=== PATIENT | male | born 1975 | race Caucasian/White ===

== ENCOUNTER 2020-02-22 01:55 | Inpatient (IN) | payer MEDICAID, SELFPAY ==
[2020-02-22 03:39] VITALS: BMI 22.3
[2020-02-22] MEDS ORDERED: Dextrose 5% in Water 1,000 ML IV PRN (03:56)
[2020-02-22] MEDS ORDERED: Dextrose 50% Abboject 50 ML SYRINGE SLOW IVP PRN (03:56)
--- NOTE | 2020-02-22 04:30 | PDOC.BPN ---
- Brief Progress Note [id number] dictated
[2020-02-22] MEDS: Morphine 4 MG/ML VIAL SLOW IVP PRN ×4 (04:36→21:35)
[2020-02-22] MEDS: Ondansetron PF 4 MG/2 ML Vial IVP PRN ×2 (04:36→09:40)
[2020-02-22] MEDS: Sodium Chloride 0.9% 1,000 ML IV SCH ×2 (04:37→14:53)
[2020-02-22] MEDS: HumaLOG 300 UNITS/3 ML VIAL SC PRN ×2 (06:02→15:04)
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
[2020-02-22] MEDS ORDERED: Vancomycin HCl 1 GM in Sodium Chloride 0.9% 250 ML 300 ML IVPB SCH (09:00)
[2020-02-22] MEDS: Lorazepam 2 MG/ML VIAL SLOW IVP PRN ×2 (09:05→21:35)
[2020-02-22] MEDS: Vancomycin 1 GM in Premix Bag 1 BAG IVPB SCH ×2 (09:11→17:34)
[2020-02-22] MEDS: Insulin Glargine 20 UNITS in Pre-Filled Syringe 1 EACH SC SCH (11:36)
[2020-02-22] MEDS: Cefepime 2 GM in Sodium Chloride 0.9% 100 ML IVPB SCH (12:15)
[2020-02-22] MEDS: Gabapentin 300 MG CAP PO SCH ×2 (12:17→17:41)
--- NOTE | 2020-02-22 17:11 | PDOC.HOSPP ---
- Subjective Encounter Date: 02/22/20 Encounter Time: 12:30 Subjective: Patient up in bed no complaints. - Objective Vital Signs & Weight: Vital Signs (12 hours) Temp Pulse Resp BP Pulse Ox 02/22/20 15:40 101.6 F H 123 H 16 170/90 H 95 02/22/20 11:22 99.6 F 113 H 16 160/92 H 96 02/22/20 07:33 99 F 123 H 18 156/79 H 99 Weight Weight 160 lb I&O: 02/21/20 02/22/20 02/23/20 06:59 06:59 06:59 Output Total 250 Balance -250 Additional Labs: Accuchecks 02/22/20 02/22/20 02/22/20 14:56 10:49 05:55 POC Glucose 333 H 223 H 308 H Hospitalist ROS - Review of Systems Cardiovascular: denies: chest pain, palpitations, orthopnea, paroxysmal noc. dyspnea, edema, light headedness, other Gastrointestinal: denies: nausea, vomiting, abdominal pain, diarrhea, constipation, melena, hematochezia, other Genitourinary: denies: dysuria, frequency, incontinence, hematuria, retention, other - Medication Medications: Active Medications Generic Name Dose Route Start Last Admin Trade Name Freq PRN Reason Stop Dose Admin Gabapentin 300 mg 02/22/20 12:00 02/22/20 12:17 Gabapentin 300 Mg Cap PO 300 mg Q6HR LILLI Administration Sodium Chloride 1,000 mls @ 100 mls/hr 02/22/20 04:00 02/22/20 14:53 Normal Saline 0.9% IV Not Given .Q10H LILLI Cefepime HCl 2 gm/ Sodium 100 mls @ 200 mls/hr 02/22/20 13:00 02/22/20 12:15 Chloride IVPB 100 mls 0100,1300 LILLI Administration Insulin Glargine 20 units/ 0.2 mls @ 0 mls/hr 02/22/20 09:00 02/22/20 11:36 Miscellaneous Medication SC Not Given QAM LILLI Vancomycin HCl 1 gm/ Device 200 mls @ 200 mls/hr 02/22/20 10:00 02/22/20 09:11 IVPB 200 mls 0200,1000,1800 LILLI Administration Insulin Human Lispro 0 units 02/22/20 03:56 02/22/20 15:04 Humalog 300 Units/3 Ml Vial SC 8 unit .MODERATE SLIDING SC PRN Administration Moderate Correctional Scale Lorazepam 0.5 mg 02/22/20 04:30 02/22/20 09:05 Lorazepam 2 Mg/Ml Vial SLOW IVP 0.5 mg Q4H PRN Administration Anxiety/Agitation Morphine Sulfate 4 mg 02/22/20 04:03 02/22/20 14:43 Morphine 4 Mg/Ml Vial SLOW IVP 4 mg Q4H PRN Administration Severe Pain (7-10) Ondansetron HCl 4 mg 02/22/20 03:56 02/22/20 09:40 Ondansetron Pf 4 Mg/2 Ml Vial IVP 4 mg Q6H PRN Administration Nausea/Vomiting - Exam Neck: negative: supple, symmetric, no JVD, no thyromegaly, no lymphadenopathy, no carotid bruit, JVD Heart: negative: RRR, no murmur, no gallops, no rubs, normal peripheral pulses, irregular, diminshed peripheral pulses, murmur present, II/IV, III/IV Respiratory: negative: CTAB, no wheezes, no rales, no ronchi, normal chest expansion, no tachypnea, normal percussion, rales, rhonchi, tachypneic, wheezes Gastrointestinal: negative: soft, non-tender, non-distended, normal bowel sounds, no palpable masses, no hepatomegaly, no splenomegaly, no bruit, no guarding, no rigidity, tender to palpation, distended, diminished bowl sounds, voluntary guarding Extremities - other findings: Right knee significant amount of swelling noted. Hosp A/P (1) Septic joint Status: Acute (2) Diabetes Code(s): E11.9 - TYPE 2 DIABETES MELLITUS WITHOUT COMPLICATIONS Status: Acute (3) Substance abuse Code(s): F19.10 - OTHER PSYCHOACTIVE SUBSTANCE ABUSE, UNCOMPLICATED Status: Acute - Plan We will continue IV antibiotics. We will add short acting Humalog with meals. Patient most likely will go for washout tomorrow. Patient on DVT prophylaxis.
[2020-02-22] MEDS ORDERED: HumaLOG 300 UNITS/3 ML VIAL SC SCH (17:15)
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
[2020-02-23] MEDS: Gabapentin 300 MG CAP PO SCH ×5 (00:52→23:35)
[2020-02-23] MEDS: Sodium Chloride 0.9% 1,000 ML IV SCH ×3 (00:53→23:00)
[2020-02-23] MEDS: Vancomycin 1 GM in Premix Bag 1 BAG IVPB SCH (00:54)
[2020-02-23] MEDS: Cefepime 2 GM in Sodium Chloride 0.9% 100 ML IVPB SCH ×2 (00:57→13:39)
[2020-02-23] MEDS: Morphine 4 MG/ML VIAL SLOW IVP PRN ×4 (01:03→20:56)
[2020-02-23] MEDS: Lorazepam 2 MG/ML VIAL SLOW IVP PRN ×3 (01:04→20:57)
[2020-02-23 01:24] LABS: SARS-CoV-2 by NAA Indeterminate (NotDetected)
[2020-02-23 01:29] LABS: Vancomycin, Trough 10.7 ug/mL
[2020-02-23] MEDS ORDERED: Vancomycin HCl 500 MG in Sodium Chloride 0.9% 100 ML IVPB SCH (02:00)
[2020-02-23] MEDS: HumaLOG 300 UNITS/3 ML VIAL SC PRN ×2 (05:18→20:57)
[2020-02-23 05:42] LABS: #Lymphocytes 1.7 thou/uL (1.20-3.40); #Monocytes 1.1 thou/uL (0.11-0.59); #Neutrophils 6.9 thou/uL (1.40-6.50); %Basophils 0.3 % (0.0-1.0); %Eosinophils 0.3 % (0.0-10.0); %Lymphocytes 16.9 % (21.0-51.0); %Monocytes 11.4 % (0.0-10.0); %Neutrophils 71.1 % (42.0-75.0); Mean Corpuscular HGB CONC 31.8 g/dL (32.0-36.0); Mean Corpuscular Hemoglobin 29.1 pg (27.0-31.0); Mean Corpuscular Volume 91.5 fL (78.0-98.0); Mean Platelet Volume 6.7 fL (7.4-10.4); Platelet Count 550 thou/uL (130-400); White Blood Cell (WBC) Count 9.8 thou/uL (4.8-10.8)
[2020-02-23 06:05] LABS: ALT (SGPT) 45 U/L (8-55); AST (SGOT) 17 U/L (5-34); Albumin 2.4 g/dL (3.5-5.0); Alkaline Phosphatase 153 U/L (40-110); Anion Gap 15 mmol/L (10-20); BUN (Urea Nitrogen) 13 mg/dL (8.9-20.6); Bilirubin, Total 0.4 mg/dL (0.2-1.2); Calc. Creatinine Clearance 121 mL/min (70-130); Calcium 7.7 mg/dL (7.8-10.44); Carbon Dioxide 27 mmol/L (22-29); Chloride 94 mmol/L (98-107); Globulin 3.3 g/dL (2.4-3.5); Glucose 490 mg/dL (70-105); Potassium 4.7 mmol/L (3.5-5.1); Protein, Total 5.7 g/dL (6.0-8.3); Sodium 131 mmol/L (136-145)
[2020-02-23] MEDS ORDERED: HumaLOG 300 UNITS/3 ML VIAL SC SCH (08:00)
[2020-02-23] MEDS: Insulin Glargine 20 UNITS in Pre-Filled Syringe 1 EACH SC SCH (09:02)
[2020-02-23] MEDS: Lisinopril 20 MG TAB PO SCH (09:02)
[2020-02-23] MEDS: Enoxaparin Sodium 40 MG/0.4 ML SYRINGE SC SCH (09:09)
[2020-02-23] MEDS ORDERED: Ondansetron PF 4 MG/2 ML Vial ONE (09:56)
[2020-02-23] MEDS ORDERED: Dexamethasone 20 MG/5 ML VIAL ONE (09:56)
[2020-02-23] MEDS ORDERED: Lidocaine 1% PF 5 ML VIAL ONE (09:56)
[2020-02-23] MEDS ORDERED: PROPOFOL 200 MG/20 ML VIAL ONE (09:56)
[2020-02-23] MEDS: Vancomycin 1.5 GRAM/300 ML BAG 1.5 GM in Premix Bag 1 BAG IVPB SCH ×2 (10:41→18:37)
[2020-02-23] MEDS ORDERED: Fentanyl 100 MCG/2 ML VIAL ONE ×6 (11:59→15:07)
[2020-02-23] MEDS ORDERED: Midazolam HCl 2 mg/2 ml Vial ONE (12:28)
[2020-02-23] MEDS ORDERED: Insulin Regular 300 UNITS/3 ML VIAL ONE (12:49)
[2020-02-23] MEDS ORDERED: Promethazine HCl 25 MG/ML VIAL SLOW IVP PRN (13:26)
[2020-02-23] MEDS ORDERED: Ondansetron HCl/PF 4 MG/2 ML Vial IVP PRN (13:26)
[2020-02-23] MEDS ORDERED: Promethazine HCl 25 MG/ML VIAL IM PRN (13:26)
[2020-02-23] MEDS: HumaLOG 300 UNITS/3 ML VIAL SC SCH ×2 (13:38→16:54)
--- NOTE | 2020-02-23 14:43 | OP ---
DATE OF PROCEDURE: 02/23/2020 OPERATION PERFORMED: Irrigation and debridement of right knee infection. PREOPERATIVE DIAGNOSIS: Right septic knee with abscess formation. POSTOPERATIVE DIAGNOSIS: Right septic knee with abscess formation. COMPLICATIONS: None. ESTIMATED BLOOD LOSS: Minimal. DRAY TRUCK [employer]IVER: None. IMPLANTS: None. INDICATIONS: Mr. Vazquez is a 44-year-old male who has developed a septic knee. He has a large abscess over the lateral knee as well as an intra-articular infection. He has been indicated for irrigation and debridement of the knee to restore mobility and prevent complications of infection. Risks have been reviewed in detail. He has elected to proceed with the operation. DESCRIPTION OF PROCEDURE: Mr. Vazquez was identified in the preoperative holding area. His correct extremity was marked. He was carried to the operating room. He was positioned supine. General anesthesia was induced. A multidisciplinary time-out was performed. The right lower extremity was prepped and draped in sterile fashion. We began the procedure with performing an arthrotomy of the knee. We then dissected down through the subcutaneous tissues to the retinaculum. The medial retinacular tissues were incised. This allowed us access to the knee joint. There was copious amount of purulent material. We cultured this. We evacuated the purulent material. We then thoroughly irrigated with 5 L of lavage in the joint. We debrided with a curette and a rongeur. Next, we moved to the lateral knee. We made a lateral incision and encountered a large subcutaneous abscess. This was debrided with a curette and then thoroughly irrigated with 3 L of lavage. Again, we cultured this fluid. Next, we loosely closed the lateral wound and packed this wound with iodoform gauze. We then closed the knee arthrotomy and superficial layers after placing a deep Hemovac drain in the knee. A sterile dressing was applied. The patient was taken to the recovery room in good condition without complication. Job ID: [id number]
--- NOTE | 2020-02-23 15:19 | PDOC.HOSPP ---
- Subjective Encounter Date: 02/23/20 Encounter Time: 09:15 Subjective: pt up in bed no complaints. - Objective Vital Signs & Weight: Vital Signs (12 hours) Temp Pulse Resp BP Pulse Ox 02/23/20 10:29 132/76 02/23/20 07:34 98.2 F 108 H 14 148/91 H 96 02/23/20 04:38 99.7 F H 114 H 16 154/91 H 95 Weight Weight 160 lb I&O: 02/22/20 02/23/20 02/24/20 06:59 06:59 06:59 Output Total 250 2925 Balance -250 -2925 Result Diagrams: 02/23/20 05:13 02/23/20 05:13 Additional Labs: Accuchecks 02/23/20 02/23/20 02/23/20 14:55 12:28 05:12 POC Glucose 291 H 268 H 413 H 02/22/20 22:35 POC Glucose 328 H Hospitalist ROS - Review of Systems Cardiovascular: denies: chest pain, palpitations, orthopnea, paroxysmal noc. dyspnea, edema, light headedness, other Gastrointestinal: denies: nausea, vomiting, abdominal pain, diarrhea, constipation, melena, hematochezia, other Genitourinary: denies: dysuria, frequency, incontinence, hematuria, retention, other - Medication Medications: Active Medications Generic Name Dose Route Start Last Admin Trade Name Freq PRN Reason Stop Dose Admin Enoxaparin Sodium 40 mg 02/23/20 09:00 02/23/20 09:09 Enoxaparin Sodium 40 Mg/0.4 Ml Syringe SC Not Given 0900 [facility] Gabapentin 300 mg 02/22/20 12:00 02/23/20 13:38 Gabapentin 300 Mg Cap PO Not Given Q6HR LILLI Sodium Chloride 1,000 mls @ 100 mls/hr 02/22/20 04:00 02/23/20 00:53 Normal Saline 0.9% IV 1,000 mls .Q10H LILLI Administration Cefepime HCl 2 gm/ Sodium 100 mls @ 200 mls/hr 02/22/20 13:00 02/23/20 13:39 Chloride IVPB Not Given 0100,1300 [facility] Insulin Glargine 20 units/ 0.2 mls @ 0 mls/hr 02/22/20 09:00 02/23/20 09:02 Miscellaneous Medication SC Not Given QAM LILLI Vancomycin HCl 1.5 gm/ Device 300 mls @ 200 mls/hr 02/23/20 10:00 02/23/20 10:41 IVPB 300 mls 0200,1000,1800 LILLI Administration Insulin Human Lispro 0 units 02/22/20 03:56 02/23/20 05:18 Humalog 300 Units/3 Ml Vial SC 10 unit .MODERATE SLIDING SC PRN Administration Moderate Correctional Scale Insulin Human Lispro 10 units 02/23/20 12:00 02/23/20 13:38 Humalog 300 Units/3 Ml Vial SC Not Given TID-WM LILLI Lisinopril 20 mg 02/23/20 09:00 02/23/20 09:02 Lisinopril 20 Mg Tab PO 20 mg DAILY LILLI Administration Lorazepam 0.5 mg 02/22/20 04:30 02/23/20 01:04 Lorazepam 2 Mg/Ml Vial SLOW IVP 0.5 mg Q4H PRN Administration Anxiety/Agitation Morphine Sulfate 4 mg 02/22/20 04:03 02/23/20 05:17 Morphine 4 Mg/Ml Vial SLOW IVP 4 mg Q4H PRN Administration Severe Pain (7-10) Ondansetron HCl 4 mg 02/22/20 03:56 02/22/20 09:40 Ondansetron Pf 4 Mg/2 Ml Vial IVP 4 mg Q6H PRN Administration Nausea/Vomiting Sodium Chloride 10 ml 02/22/20 21:00 02/23/20 09:09 Flush - Normal Saline 10 Ml Syringe IVF Not Given Q12HR LILLI - Exam Neck: negative: supple, symmetric, no JVD, no thyromegaly, no lymphadenopathy, no carotid bruit, JVD Heart: negative: RRR, no murmur, no gallops, no rubs, normal peripheral pulses, irregular, diminshed peripheral pulses, murmur present, II/IV, III/IV Respiratory: negative: CTAB, no wheezes, no rales, no ronchi, normal chest expansion, no tachypnea, normal percussion, rales, rhonchi, tachypneic, wheezes Gastrointestinal: negative: soft, non-tender, non-distended, normal bowel sounds, no palpable masses, no hepatomegaly, no splenomegaly, no bruit, no guarding, no rigidity, tender to palpation, distended, diminished bowl sounds, voluntary guarding Extremities - other findings: right knee erythema Hosp A/P (1) Septic joint Status: Acute (2) Diabetes Code(s): E11.9 - TYPE 2 DIABETES MELLITUS WITHOUT COMPLICATIONS Status: Acute (3) Substance abuse Code(s): F19.10 - OTHER PSYCHOACTIVE SUBSTANCE ABUSE, UNCOMPLICATED Status: Acute (4) Anemia Code(s): D64.9 - ANEMIA, UNSPECIFIED Status: Acute - Plan We will continue IV antibiotics. We will add short acting Humalog with meals. Patient most likely will go for washout tomorrow. Patient on DVT prophylaxis. 02/22 pt npo going for washout. pt spiked a fever last night. will consult ID since he may need mcc abx. will increase his insulin given his uncontrolled blood sugars.
--- NOTE | 2020-02-23 17:38 | CON ---
DATE OF CONSULTATION: 02/23/2020 REASON FOR CONSULTATION: Right knee septic arthritis. HISTORY OF PRESENT ILLNESS: A 44-year-old who just moved from [place] to this area to be with family members. The history is kind of sketchy, but right before he came here, he had developed pain and swelling in the right knee and went to a hospital in [place], reportedly the [facility] there. It is not clear what they did there. The patient is not willing to give a lot of information, but he checked out against medical advice and drove over to [place] to this area. He came straight to the emergency room, and obviously, he had an inflamed right knee. His initial findings included a blood pressure of 150/90, pulse 108, respirations 20, temperature 98.3, and O2 saturation 98% on room air. He did not appear in distress. The right knee was [id number] erythematous with evidence of joint effusion. So, Dr. Gutiérrez did an operative intervention. He did arthrotomy in the right knee, dissected down to the subcutaneous tissues to retinaculum and there was a knee joint access then with copies amount of purulent material, which was evacuated and irrigated and then the lateral knee was approached with a lateral incision and a large subcutaneous abscess found. He is currently having quite a bit of pain intermittently. Denies any headaches. No visual symptoms, sore throat, odynophagia, or dysphagia. No shortness of breath or chest pain. No abdominal pain or diarrhea. No genitourinary symptoms. No joint symptoms outside the area of involvement. No neurological symptoms. PAST MEDICAL HISTORY: Type 1 diabetes, hypertension, coronary artery disease. PAST SURGICAL HISTORY: Bypass graft surgery. He actually told me he had a stent placed, not a bypass graft. SOCIAL HISTORY: Uses methamphetamine, last use was just a few days ago. Smokes daily. Drinks occasionally. Unemployed. FAMILY HISTORY: Noncontributory. ALLERGIES: SULFA DRUGS. CURRENT MEDICATIONS: 1. Cefepime. 2. Neurontin. 3. Insulin. 4. Lisinopril. 5. Ativan. 6. Ondansetron. 7. Vancomycin. PHYSICAL EXAMINATION: VITAL SIGNS: T-max 101.6, is down to 98.2 at this point; blood pressure 130/76; O2 saturation 96% on room air. SKIN: He has extensive tattooing over his body of skin. The right knee dressed. He has a peripheral IV access. LYMPHS: No lymphadenopathy. HEENT: Ocular movements conjugate. Oral cavity with still a few teeth in the lower mandible with evident decay. The upper dental structures are missing. No oral lesion noted. NECK: Supple. No jugular vein distention. MUSCULOSKELETAL: No shoulder inflammatory activity. No sternoclavicular joint problems. LUNGS: Clear to auscultation and percussion. HEART: S1, S2. Regular rate. No S3 or S4. ABDOMEN: Soft. Not distended or tender. No ascites. No bladder distention. EXTREMITIES: 1+ in dorsalis pedis. No edema. He was having pain during the exam, so it was very hard to mobilize his extremities. NEUROLOGIC: He is awake, oriented, follows commands, is not very willing to provide a history. LABORATORY DATA: His white cell count 9.8, hemoglobin 9.0, MCV 91, platelets 550, 71% neutrophils. Creatinine 0.79, bilirubin 0.4. Transaminase is normal. Alkaline phosphatase 153, albumin 2.4. Vancomycin trough 10.7. SARS-CoV PCR was indeterminate. IMAGING STUDIES: Included a knee x-ray, large joint effusion and possible fracture medial tibial epiphysis. I attempted to call [facility] in [place], but they did not have anybody with his name in the database there. ASSESSMENT: 1. Methamphetamine use. 2. Type 1 diabetes mellitus. 3. Right knee septic arthritis for the past 4 to 5 days. DISCUSSION: The differential diagnosis includes the usual pyogenic bacteria such as Staphylococcus aureus, streptococci, and gram-negative rods versus opportunistic pathogens. Continue cefepime, vancomycin. Await on culture results. I see 2 or 4 samples from the knee pending results at this time. His COVID test was indeterminate, and we will order SARS-CoV-2 antibody test and order a chest x-ray as well. Regarding possibility of endocarditis, we will see what the blood cultures show. We need to obtain records from the other hospital to see if he had bacteremia. If he did have or does have bacteremia, then we will have to evaluate the heart. He will need protracted treatment with antimicrobial therapy hopefully via the oral route, but unfortunately most likely he will require intravenous administration. Depending on the organism, we may be able to treat him with once weekly dalbavancin. If the blood cultures turn positive, then we will have to assess for endocarditis and that will complicate things a little bit. Check HIV and hepatitis C serology. Job ID: [id number]
[2020-02-23 18:01] LABS: HIV (1/2) Antibody/Antigen Non-Reactive (NonReactive); HIV 1/2 INDEX 0.06 S/CO (<1.00)
[2020-02-23 18:04] LABS: Hep C IgG Ab Reflex HepC Qnt (NonReactive); Hep C Index 13.46 S/CO (0-0.79)
[2020-02-23] MEDS: Ondansetron PF 4 MG/2 ML Vial IVP PRN (21:02)
[2020-02-23] MEDS: Insulin Glargine 15 UNITS in Pre-Filled Syringe 1 EACH SC SCH (23:35)
[2020-02-24] MEDS: Cefepime 2 GM in Sodium Chloride 0.9% 100 ML IVPB SCH ×2 (00:09→15:01)
[2020-02-24 01:45] LABS: Vancomycin, Trough 20.1 ug/mL
[2020-02-24] MEDS: Vancomycin HCl 1.25 GM in Sodium Chloride 0.9% 250 ML 250 ML IVPB SCH ×3 (02:10→17:50)
[2020-02-24] MEDS: Gabapentin 300 MG CAP PO SCH ×4 (06:09→23:26)
[2020-02-24] MEDS: HumaLOG 300 UNITS/3 ML VIAL SC PRN (06:10)
[2020-02-24] MEDS: Insulin Glargine 20 UNITS in Pre-Filled Syringe 1 EACH SC SCH (06:54)
[2020-02-24] MEDS: HumaLOG 300 UNITS/3 ML VIAL SC SCH ×3 (06:55→17:49)
[2020-02-24] MEDS: Sodium Chloride 0.9% 1,000 ML IV SCH ×2 (07:29→17:50)
[2020-02-24 08:07] LABS: Glucose 565 mg/dL (70-105)
[2020-02-24] MEDS ORDERED: Insulin Regular 300 UNITS/3 ML VIAL IVP SCH ×3 (08:45→11:45)
[2020-02-24] MEDS ORDERED: Sodium Chloride 0.9% 500 ML IV SCH ×2 (09:00→11:45)
[2020-02-24] MEDS ORDERED: Insulin Regular 300 UNITS/3 ML VIAL SC SCH ×2 (09:15→16:15)
[2020-02-24] MEDS: Lisinopril 20 MG TAB PO SCH (09:17)
[2020-02-24] MEDS: Enoxaparin Sodium 40 MG/0.4 ML SYRINGE SC SCH (09:19)
[2020-02-24] MEDS: Nicotine 14 MG PATCH TD SCH (10:45)
[2020-02-24] MEDS: Morphine 4 MG/ML VIAL SLOW IVP PRN ×2 (10:49→17:49)
[2020-02-24] MEDS: Lorazepam 2 MG/ML VIAL SLOW IVP PRN ×2 (11:03→20:46)
[2020-02-24 11:17] LABS: Anion Gap 19 mmol/L (10-20); BUN (Urea Nitrogen) 19 mg/dL (8.9-20.6); Calc. Creatinine Clearance 93 mL/min (70-130); Carbon Dioxide 21 mmol/L (22-29); Chloride 97 mmol/L (98-107); Potassium 3.9 mmol/L (3.5-5.1); Sodium 133 mmol/L (136-145)
[2020-02-24 11:21] LABS: Glucose 574 mg/dL (70-105)
[2020-02-24 12:02] LABS: Glucose 681 mg/dL (70-105)
[2020-02-24] MEDS ORDERED: Morphine 4 MG/ML VIAL ONE (12:36)
[2020-02-24] MEDS ORDERED: Morphine 4 MG/ML VIAL SLOW IVP SCH (12:45)
[2020-02-24 14:13] LABS: Glucose 438 mg/dL (70-105)
--- NOTE | 2020-02-24 16:08 | PDOC.HOSPP ---
- Subjective Encounter Date: 02/24/20 Encounter Time: 09:45 Subjective: Patient's blood sugar out of control. He does complain of pain to his right knee - Objective Vital Signs & Weight: Vital Signs (12 hours) Temp Pulse Resp BP BP Pulse Ox 02/24/20 11:51 98.5 F 112 H 16 162/94 H 100 02/24/20 09:17 145/85 H 02/24/20 09:15 98 02/24/20 07:57 98.6 F 111 H 16 145/85 H 98 Weight Weight 160 lb I&O: 02/23/20 02/24/20 02/25/20 06:59 06:59 06:59 Intake Total 2340 Output Total 2925 2150 Balance -2925 190 Result Diagrams: 02/23/20 05:13 02/24/20 13:40 Additional Labs: Accuchecks 02/24/20 02/24/20 02/23/20 06:36 05:31 20:53 POC Glucose Greater than 500 H Greater than 500 H 448 H Hospitalist ROS - Review of Systems Respiratory: denies: cough, dry, shortness of breath, hemoptysis, SOB with excertion, pleuritic pain, sputum, wheezing, other Cardiovascular: denies: chest pain, palpitations, orthopnea, paroxysmal noc. dyspnea, edema, light headedness, other Gastrointestinal: denies: nausea, vomiting, abdominal pain, diarrhea, constipation, melena, hematochezia, other - Medication Medications: Active Medications Generic Name Dose Route Start Last Admin Trade Name Freq PRN Reason Stop Dose Admin Enoxaparin Sodium 40 mg 02/23/20 09:00 02/24/20 09:19 Enoxaparin Sodium 40 Mg/0.4 Ml Syringe SC 40 mg 0900 LILLI Administration Gabapentin 300 mg 02/22/20 12:00 02/24/20 12:17 Gabapentin 300 Mg Cap PO 300 mg Q6HR LILLI Administration Sodium Chloride 1,000 mls @ 100 mls/hr 02/22/20 04:00 02/24/20 07:29 Normal Saline 0.9% IV Not Given .Q10H LILLI Cefepime HCl 2 gm/ Sodium 100 mls @ 200 mls/hr 02/22/20 13:00 02/24/20 15:01 Chloride IVPB 100 mls 0100,1300 LILLI Administration Insulin Glargine 20 units/ 0.2 mls @ 0 mls/hr 02/22/20 09:00 02/24/20 06:54 Miscellaneous Medication SC 0.2 mls QAM LILLI Administration Insulin Glargine 15 units/ 0.15 mls @ 0 mls/hr 02/23/20 21:00 02/23/20 23:35 Miscellaneous Medication SC Not Given HS LILLI Vancomycin HCl 1.25 gm/ Sodium 250 mls @ 166.667 mls/hr 02/24/20 02:00 02/24/20 10:45 Chloride IVPB 250 mls 0200,1000,1800 LILLI Administration Insulin Human Lispro 0 units 02/22/20 03:56 02/24/20 06:10 Humalog 300 Units/3 Ml Vial SC 10 unit .MODERATE SLIDING SC PRN Administration Moderate Correctional Scale Insulin Human Lispro 15 units 02/24/20 12:00 02/24/20 12:14 Humalog 300 Units/3 Ml Vial SC 15 unit TID-WM LILLI Administration Lisinopril 20 mg 02/23/20 09:00 02/24/20 09:17 Lisinopril 20 Mg Tab PO 20 mg DAILY LILLI Administration Lorazepam 0.5 mg 02/22/20 04:30 02/24/20 11:03 Lorazepam 2 Mg/Ml Vial SLOW IVP 0.5 mg Q4H PRN Administration Anxiety/Agitation Nicotine 14 mg 02/24/20 10:00 02/24/20 10:45 Nicotine 14 Mg Patch TD 14 mg Q24HR LILLI Administration Ondansetron HCl 4 mg 02/22/20 03:56 02/23/20 21:02 Ondansetron Pf 4 Mg/2 Ml Vial IVP 4 mg Q6H PRN Administration Nausea/Vomiting Sodium Chloride 10 ml 02/22/20 21:00 02/24/20 09:18 Flush - Normal Saline 10 Ml Syringe IVF 10 ml Q12HR LILLI Administration - Exam Neck: negative: supple, symmetric, no JVD, no thyromegaly, no lymphadenopathy, no carotid bruit, JVD Heart: negative: RRR, no murmur, no gallops, no rubs, normal peripheral pulses, irregular, diminshed peripheral pulses, murmur present, II/IV, III/IV Respiratory: negative: CTAB, no wheezes, no rales, no ronchi, normal chest expansion, no tachypnea, normal percussion, rales, rhonchi, tachypneic, wheezes Gastrointestinal: negative: soft, non-tender, non-distended, normal bowel sounds, no palpable masses, no hepatomegaly, no splenomegaly, no bruit, no guarding, no rigidity, tender to palpation, distended, diminished bowl sounds, voluntary guarding Extremities: 1+ LE edema Extremities - other findings: Mild erythema noted to his right knee. Hosp A/P (1) Septic joint Status: Acute (2) Diabetes Code(s): E11.9 - TYPE 2 DIABETES MELLITUS WITHOUT COMPLICATIONS Status: Acute (3) Substance abuse Code(s): F19.10 - OTHER PSYCHOACTIVE SUBSTANCE ABUSE, UNCOMPLICATED Status: Acute (4) Anemia Code(s): D64.9 - ANEMIA, UNSPECIFIED Status: Acute - Plan We will continue IV antibiotics. We will add short acting Humalog with meals. Patient most likely will go for washout tomorrow. Patient on DVT prophylaxis. 02/22 pt npo going for washout. pt spiked a fever last night. 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 will increase his insulin given his uncontrolled blood sugars. 02/23 status post washout of the right knee. We will continue antibiotics. Dr. Wilson consulted. Patient given multiple doses of IV short acting insulin. Apparently his diet was regular we will change his diet to diabetic diet. We wi ll check a hemoglobin A1c in the a.m. Patient's sugars were over 600. He does not have an anion gap metabolic acidosis therefore no DKA. He is a high risk for going into DKA. If his sugars do not improve he will require insulin drip. Patient was received 2 normal saline boluses. We will increase his pain medications.
[2020-02-24] MEDS: Famotidine 20 MG TAB PO SCH (20:45)
[2020-02-24] MEDS: Ketorolac Tromethamine 30 MG/ML VIAL IVP PRN (20:45)
[2020-02-24] MEDS: Insulin Glargine 15 UNITS in Pre-Filled Syringe 1 EACH SC SCH (23:40)
[2020-02-25] MEDS: Cefepime 2 GM in Sodium Chloride 0.9% 100 ML IVPB SCH ×2 (00:46→12:52)
[2020-02-25] MEDS: Sodium Chloride 0.9% 1,000 ML IV SCH ×3 (01:42→22:31)
[2020-02-25 01:48] LABS: #Eosinphils 0.1 thou/uL (0.0-0.7); #Monocytes 0.6 thou/uL (0.11-0.59); #Neutrophils 7.9 thou/uL (1.40-6.50); %Basophils 0.4 % (0.0-1.0); %Eosinophils 0.6 % (0.0-10.0); %Lymphocytes 19.2 % (21.0-51.0); %Neutrophils 73.8 % (42.0-75.0); Hemoglobin 8.2 g/dL (14.0-18.0); Mean Corpuscular Hemoglobin 28.7 pg (27.0-31.0); Mean Corpuscular Volume 89.5 fL (78.0-98.0); Mean Platelet Volume 6.3 fL (7.4-10.4); Platelet Count 606 thou/uL (130-400); RBC Distribution Width 14.1 % (11.5-14.5); Red Blood Cell (RBC) Count 2.85 mill/uL (4.70-6.10); White Blood Cell (WBC) Count 10.6 thou/uL (4.8-10.8)
[2020-02-25 02:20] LABS: Vancomycin, Trough 19.1 ug/mL
[2020-02-25 02:21] LABS: ALT (SGPT) 30 U/L (8-55); AST (SGOT) 19 U/L (5-34); Albumin 2.3 g/dL (3.5-5.0); Alkaline Phosphatase 115 U/L (40-110); Anion Gap 11 mmol/L (10-20); BUN (Urea Nitrogen) 14 mg/dL (8.9-20.6); Bilirubin, Total 0.2 mg/dL (0.2-1.2); Calc. Creatinine Clearance 105 mL/min (70-130); Calcium 7.6 mg/dL (7.8-10.44); Carbon Dioxide 29 mmol/L (22-29); Chloride 101 mmol/L (98-107); Glucose 255 mg/dL (70-105); Potassium 4.1 mmol/L (3.5-5.1); Protein, Total 5.3 g/dL (6.0-8.3); Sodium 137 mmol/L (136-145)
[2020-02-25] MEDS: Vancomycin HCl 1.25 GM in Sodium Chloride 0.9% 250 ML 250 ML IVPB SCH ×3 (02:49→18:38)
[2020-02-25 03:03] LABS: Hemoglobin A1c 11.5 % (4.0-6.0)
[2020-02-25] MEDS: Morphine 4 MG/ML VIAL SLOW IVP PRN ×4 (03:33→23:02)
[2020-02-25] MEDS: HumaLOG 300 UNITS/3 ML VIAL SC PRN ×2 (03:37→23:17)
[2020-02-25] MEDS: Gabapentin 300 MG CAP PO SCH ×4 (05:31→23:03)
[2020-02-25] MEDS: Enoxaparin Sodium 40 MG/0.4 ML SYRINGE SC SCH (08:30)
[2020-02-25] MEDS: Famotidine 20 MG TAB PO SCH ×2 (08:30→21:33)
[2020-02-25] MEDS: Lisinopril 20 MG TAB PO SCH (08:30)
[2020-02-25] MEDS: HumaLOG 300 UNITS/3 ML VIAL SC SCH ×3 (08:31→17:39)
[2020-02-25] MEDS: Insulin Glargine 20 UNITS in Pre-Filled Syringe 1 EACH SC SCH (08:39)
[2020-02-25] MEDS: Nicotine 14 MG PATCH TD SCH (10:44)
[2020-02-25] MEDS: Lorazepam 2 MG/ML VIAL SLOW IVP PRN ×2 (10:56→23:18)
--- NOTE | 2020-02-25 13:32 | PDOC.HOSPP ---
- Subjective Encounter Date: 02/25/20 Encounter Time: 10:30 Subjective: pt up in bed no complains - Objective Vital Signs & Weight: Vital Signs (12 hours) Temp Pulse Resp BP BP Pulse Ox 02/25/20 11:04 99.8 F H 106 H 20 151/86 H 96 02/25/20 08:30 159/89 H 02/25/20 08:02 98.6 F 106 H 18 159/89 H 96 02/25/20 03:24 98.9 F 102 H 16 147/81 H 97 Weight Weight 160 lb I&O: 02/24/20 02/25/20 02/26/20 06:59 06:59 06:59 Intake Total 4185 Output Total 3375 Balance 810 Result Diagrams: 02/25/20 01:39 02/25/20 01:39 Additional Labs: Accuchecks 02/25/20 02/25/20 02/24/20 13:09 03:28 22:26 POC Glucose 318 H 360 H 87 02/24/20 02/24/20 02/24/20 20:42 16:02 10:46 POC Glucose 79 366 H Greater than 500 H Hospitalist ROS - Review of Systems Cardiovascular: denies: chest pain, palpitations, orthopnea, paroxysmal noc. dyspnea, edema, light headedness, other Gastrointestinal: denies: nausea, vomiting, abdominal pain, diarrhea, consti pation, melena, hematochezia, other Genitourinary: denies: dysuria, frequency, incontinence, hematuria, retention, other - Medication Medications: Active Medications Generic Name Dose Route Start Last Admin Trade Name Rashelq PRN Reason Stop Dose Admin Enoxaparin Sodium 40 mg 02/23/20 09:00 02/25/20 08:30 Enoxaparin Sodium 40 Mg/0.4 Ml Syringe SC 40 mg 0900 LILLI Administration Famotidine 20 mg 02/24/20 21:00 02/25/20 08:30 Famotidine 20 Mg Tab PO 20 mg BID LILLI Administration Gabapentin 300 mg 02/22/20 12:00 02/25/20 12:51 Gabapentin 300 Mg Cap PO 300 mg Q6HR LILLI Administration Sodium Chloride 1,000 mls @ 100 mls/hr 02/22/20 04:00 02/25/20 01:42 Normal Saline 0.9% IV Not Given .Q10H LILLI Cefepime HCl 2 gm/ Sodium 100 mls @ 200 mls/hr 02/22/20 13:00 02/25/20 12:52 Chloride IVPB 100 mls 0100,1300 LILLI Administration Insulin Glargine 20 units/ 0.2 mls @ 0 mls/hr 02/22/20 09:00 02/25/20 08:39 Miscellaneous Medication SC 0.2 mls QAM LILLI Administration Insulin Glargine 15 units/ 0.15 mls @ 0 mls/hr 02/23/20 21:00 02/24/20 23:40 Miscellaneous Medication SC Not Given HS LILLI Vancomycin HCl 1.25 gm/ Sodium 250 mls @ 166.667 mls/hr 02/24/20 02:00 02/25/20 10:44 Chloride IVPB 250 mls 0200,1000,1800 LILLI Administration Insulin Human Lispro 0 units 02/22/20 03:56 02/25/20 03:37 Humalog 300 Units/3 Ml Vial SC 10 unit .MODERATE SLIDING SC PRN Administration Moderate Correctional Scale Insulin Human Lispro 15 units 02/24/20 12:00 02/25/20 12:51 Humalog 300 Units/3 Ml Vial SC 15 unit TID-WM LILLI Administration Ketorolac Tromethamine 15 mg 02/24/20 20:26 02/24/20 20:45 Ketorolac Tromethamine 30 Mg/Ml Vial IVP 02/29/20 20:27 15 mg Q6H PRN Administration Pain Lisinopril 20 mg 02/23/20 09:00 02/25/20 08:30 Lisinopril 20 Mg Tab PO 20 mg DAILY LILLI Administration Lorazepam 0.5 mg 02/22/20 04:30 02/25/20 10:56 Lorazepam 2 Mg/Ml Vial SLOW IVP 0.5 mg Q4H PRN Administration Anxiety/Agitation Morphine Sulfate 6 mg 02/24/20 12:34 02/25/20 08:25 Morphine 4 Mg/Ml Vial SLOW IVP 6 mg Q4H PRN Administration Severe Pain (7-10) Nicotine 14 mg 02/24/20 10:00 02/25/20 10:44 Nicotine 14 Mg Patch TD 14 mg Q24HR LILLI Administration Ondansetron HCl 4 mg 02/22/20 03:56 02/23/20 21:02 Ondansetron Pf 4 Mg/2 Ml Vial IVP 4 mg Q6H PRN Administration Nausea/Vomiting Sodium Chloride 10 ml 02/22/20 21:00 02/25/20 10:45 Flush - Normal Saline 10 Ml Syringe IVF Not Given Q12HR LILLI - Exam Neck: negative: supple, symmetric, no JVD, no thyromegaly, no lymphadenopathy, no carotid bruit, JVD Heart: negative: RRR, no murmur, no gallops, no rubs, normal peripheral pulses, irregular, diminshed peripheral pulses, murmur present, II/IV, III/IV Respiratory: negative: CTAB, no wheezes, no rales, no ronchi, normal chest expansion, no tachypnea, normal percussion, rales, rhonchi, tachypneic, wheezes Gastrointestinal: negative: soft, non-tender, non-distended, normal bowel sounds, no palpable masses, no hepatomegaly, no splenomegaly, no bruit, no guarding, no rigidity, tender to palpation, distended, diminished bowl sounds, voluntary guarding Extremities: 1+ LE edema Extremities - other findings: right knee dressing intact Hosp A/P (1) Septic joint Status: Acute (2) Diabetes Code(s): E11.9 - TYPE 2 DIABETES MELLITUS WITHOUT COMPLICATIONS Status: Acute (3) Substance abuse Code(s): F19.10 - OTHER PSYCHOACTIVE SUBSTANCE ABUSE, UNCOMPLICATED Status: Acute (4) Anemia Code(s): D64.9 - ANEMIA, UNSPECIFIED Status: Acute - Plan We will continue IV antibiotics. We will add short acting Humalog with meals. Patient most likely will go for washout tomorrow. Patient on DVT prophylaxis. 02/22 pt npo going for washout. pt spiked a fever last night. 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 will increase his insulin given his uncontrolled blood sugars. 02/23 status post washout of the right knee. We will continue antibiotics. Dr. Wilson consulted. Patient given multiple doses of IV short acting insulin. Apparently his diet was regular we will change his diet to diabetic diet. We will check a hemoglobin A1c in the a.m. Patient's sugars were over 600. He does not have an anion gap metabolic acidosis therefore no DKA. He is a high risk for going into DKA. If his sugars do not improve he will require insulin drip. Patient was received 2 normal saline boluses. We will increase his pain medications. 02/24 pt's blood sugars are still elevated. will titrate pt's insulin. will continue abx for now. PT ordered. pt on dvt ppx.
[2020-02-25] MEDS: Insulin Glargine 15 UNITS in Pre-Filled Syringe 1 EACH SC SCH (21:33)
[2020-02-25] MEDS: Ketorolac Tromethamine 30 MG/ML VIAL IVP PRN (22:31)
[2020-02-25] MEDS: Ondansetron PF 4 MG/2 ML Vial IVP PRN (23:10)
[2020-02-26] MEDS: Vancomycin HCl 1.25 GM in Sodium Chloride 0.9% 250 ML 250 ML IVPB SCH ×2 (01:11→09:29)
[2020-02-26] MEDS: Cefepime 2 GM in Sodium Chloride 0.9% 100 ML IVPB SCH (01:11)
[2020-02-26 01:38] LABS: Vancomycin, Trough 19.2 ug/mL
[2020-02-26] MEDS: Gabapentin 300 MG CAP PO SCH ×4 (05:02→23:43)
[2020-02-26] MEDS: Morphine 4 MG/ML VIAL SLOW IVP PRN (05:03)
[2020-02-26] MEDS: Lorazepam 2 MG/ML VIAL SLOW IVP PRN (05:09)
[2020-02-26] MEDS: Insulin Glargine 20 UNITS in Pre-Filled Syringe 1 EACH SC SCH (09:29)
[2020-02-26] MEDS: Enoxaparin Sodium 40 MG/0.4 ML SYRINGE SC SCH (09:29)
[2020-02-26] MEDS: Lisinopril 20 MG TAB PO SCH (09:29)
[2020-02-26] MEDS: Famotidine 20 MG TAB PO SCH ×2 (09:29→19:38)
[2020-02-26] MEDS: HumaLOG 300 UNITS/3 ML VIAL SC SCH ×3 (09:30→17:24)
[2020-02-26] MEDS: Ketorolac Tromethamine 30 MG/ML VIAL IVP PRN (09:31)
[2020-02-26] MEDS: Nicotine 14 MG PATCH TD SCH (09:36)
[2020-02-26 10:38] LABS: HCV I.Units 44600000 IU/mL (.); HCV I.Units log10 7.649 (.); Hep C PCR-Quant See Final Results IU/mL (.)
[2020-02-26] MEDS: HYDROcodone/Acetaminophen 7.5/325 mg Tablet PO PRN ×2 (12:39→19:38)
[2020-02-26] MEDS: cefTRIAXone\\ROCEPHIN 2 GM in Sodium Chloride 0.9% 100 ML IVPB SCH (12:45)
--- NOTE | 2020-02-26 16:36 | PDOC.HOSPP ---
- Subjective Encounter Date: 02/26/20 Encounter Time: 10:30 Subjective: Patient up in bed denies any complaints. - Objective Vital Signs & Weight: Vital Signs (12 hours) Temp Pulse Resp BP BP Pulse Ox 02/26/20 15:45 100.1 F H 106 H 16 152/82 H 95 02/26/20 12:00 98.9 F 104 H 16 136/80 95 02/26/20 09:29 159/89 H 02/26/20 07:55 98.6 F 102 H 16 144/81 H 99 02/26/20 04:42 99.0 F 99 21 H 146/86 H 96 Weight Admit Weight 160 lb Weight 160 lb I&O: 02/25/20 02/26/20 02/27/20 06:59 06:59 06:59 Intake Total 4185 1900 Output Total 3375 1625 Balance 810 275 Result Diagrams: 02/25/20 01:39 02/25/20 01:39 Additional Labs: Accuchecks 02/26/20 02/26/20 02/26/20 15:05 11:44 04:54 POC Glucose 65 L 114 H 117 H 02/25/20 02/25/20 02/25/20 23:13 19:41 15:31 POC Glucose 303 H 233 H 215 H Hospitalist ROS - Review of Systems Cardiovascular: denies: chest pain, palpitations, orthopnea, paroxysmal noc. d yspnea, edema, light headedness, other Gastrointestinal: denies: nausea, vomiting, abdominal pain, diarrhea, constipation, melena, hematochezia, other Genitourinary: denies: dysuria, frequency, incontinence, hematuria, retention, other - Medication Medications: Active Medications Generic Name Dose Route Start Last Admin Trade Name Freq PRN Reason Stop Dose Admin Hydrocodone Bitart/Acetaminophen 1 tab 02/26/20 09:44 02/26/20 12:39 Hydrocodone/Acetaminophen 7.5/325 Mg Tablet PO 1 tab Q6H PRN Administration Mild Pain (1-3) Enoxaparin Sodium 40 mg 02/23/20 09:00 02/26/20 09:29 Enoxaparin Sodium 40 Mg/0.4 Ml Syringe SC 40 mg 0900 LILLI Administration Famotidine 20 mg 02/24/20 21:00 02/26/20 09:29 Famotidine 20 Mg Tab PO 20 mg BID LILLI Administration Gabapentin 300 mg 02/22/20 12:00 02/26/20 12:38 Gabapentin 300 Mg Cap PO 300 mg Q6HR LILLI Administration Insulin Glargine 20 units/ 0.2 mls @ 0 mls/hr 02/22/20 09:00 02/26/20 09:29 Miscellaneous Medication SC 0.2 mls QAM LILLI Administration Insulin Glargine 15 units/ 0.15 mls @ 0 mls/hr 02/23/20 21:00 02/25/20 21:33 Miscellaneous Medication SC 0.15 mls HS LILLI Administration Ceftriaxone Sodium 2 gm/ 100 mls @ 200 mls/hr 02/26/20 12:00 02/26/20 12:45 Sodium Chloride IVPB 100 mls 1200 LILLI Administration Insulin Human Lispro 0 units 02/22/20 03:56 02/25/20 23:17 Humalog 300 Units/3 Ml Vial SC 8 unit .MODERATE SLIDING SC PRN Administration Moderate Correctional Scale Insulin Human Lispro 15 units 02/24/20 12:00 02/26/20 12:39 Humalog 300 Units/3 Ml Vial SC 15 unit TID-WM LILLI Administration Ketorolac Tromethamine 15 mg 02/24/20 20:26 02/26/20 09:31 Ketorolac Tromethamine 30 Mg/Ml Vial IVP 02/29/20 20:27 15 mg Q6H PRN Administration Pain Lisinopril 20 mg 02/23/20 09:00 02/26/20 09:29 Lisinopril 20 Mg Tab PO 20 mg DAILY LILLI Administration Nicotine 14 mg 02/24/20 10:00 02/26/20 09:36 Nicotine 14 Mg Patch TD 14 mg Q24HR LILLI Administration Ondansetron HCl 4 mg 02/22/20 03:56 02/25/20 23:10 Ondansetron Pf 4 Mg/2 Ml Vial IVP 4 mg Q6H PRN Administration Nausea/Vomiting Sodium Chloride 10 ml 02/22/20 21:00 02/26/20 09:30 Flush - Normal Saline 10 Ml Syringe IVF Not Given Q12HR LILLI - Exam Neck: negative: supple, symmetric, no JVD, no thyromegaly, no lymphadenopathy, no carotid bruit, JVD Heart: negative: RRR, no murmur, no gallops, no rubs, normal peripheral pulses, irregular, diminshed peripheral pulses, murmur present, II/IV, III/IV Respiratory: negative: CTAB, no wheezes, no rales, no ronchi, normal chest expansion, no tachypnea, normal percussion, rales, rhonchi, tachypneic, wheezes Gastrointestinal: negative: soft, non-tender, non-distended, normal bowel sounds, no palpable masses, no hepatomegaly, no splenomegaly, no bruit, no guarding, no rigidity, tender to palpation, distended, diminished bowl sounds, voluntary guarding Hosp A/P (1) Septic joint Status: Acute (2) Diabetes Code(s): E11.9 - TYPE 2 DIABETES MELLITUS WITHOUT COMPLICATIONS Status: Acute (3) Substance abuse Code(s): F19.10 - OTHER PSYCHOACTIVE SUBSTANCE ABUSE, UNCOMPLICATED Status: Acute (4) Anemia Code(s): D64.9 - ANEMIA, UNSPECIFIED Status: Acute - Plan We will continue IV antibiotics. We will add short acting Humalog with meals. Patient most likely will go for washout tomorrow. Patient on DVT prophylaxis. 02/22 pt npo going for washout. pt spiked a fever last night. 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 will increase his insulin given his uncontrolled blood sugars. 02/23 status post washout of the right knee. We will continue antibiotics. Dr. Wilson consulted. Patient given multiple doses of IV short acting insulin. Apparently his diet was regular we will change his diet to diabetic diet. We will check a hemoglobin A1c in the a.m. Patient's sugars were over 600. He do es not have an anion gap metabolic acidosis therefore no DKA. He is a high risk for going into DKA. If his sugars do not improve he will require insulin drip. Patient was received 2 normal saline boluses. We will increase his pain medications. 02/24 pt's blood sugars are still elevated. will titrate pt's insulin. will continue abx for now. PT ordered. pt on dvt ppx. 02/25 spoke with infectious disease patient can get Rocephin IM or IV daily. However given his history of IV drug use most likely will be IM. May discharge once okay with orthopedic. Patient's sugars are still very labile. Patient's IV Ativan changed to p.o. and IV morphine changed to oral pain meds. Patient on DVT prophylaxis.
[2020-02-26] MEDS: Sodium Chloride 0.9% 1,000 ML IV SCH (18:38)
[2020-02-26] MEDS: Lorazepam 1 MG TAB PO PRN (19:38)
[2020-02-26] MEDS: Insulin Glargine 15 UNITS in Pre-Filled Syringe 1 EACH SC SCH (20:31)
[2020-02-27] MEDS: HumaLOG 300 UNITS/3 ML VIAL SC PRN (03:47)
[2020-02-27] MEDS: HYDROcodone/Acetaminophen 7.5/325 mg Tablet PO PRN ×3 (04:09→18:32)
[2020-02-27] MEDS: Lorazepam 1 MG TAB PO PRN ×3 (04:10→18:32)
[2020-02-27] MEDS: Gabapentin 300 MG CAP PO SCH ×3 (05:29→17:06)
[2020-02-27] MEDS: Lisinopril 20 MG TAB PO SCH (08:23)
[2020-02-27] MEDS: Famotidine 20 MG TAB PO SCH ×2 (08:23→19:54)
[2020-02-27] MEDS: Enoxaparin Sodium 40 MG/0.4 ML SYRINGE SC SCH (08:24)
[2020-02-27] MEDS: HumaLOG 300 UNITS/3 ML VIAL SC SCH ×3 (08:24→17:08)
[2020-02-27] MEDS: Ketorolac Tromethamine 30 MG/ML VIAL IVP PRN ×2 (08:25→17:06)
[2020-02-27] MEDS: Nicotine 14 MG PATCH TD SCH (08:44)
[2020-02-27] MEDS: Insulin Glargine 20 UNITS in Pre-Filled Syringe 1 EACH SC SCH (08:44)
[2020-02-27] MEDS: cefTRIAXone\\ROCEPHIN 2 GM in Sodium Chloride 0.9% 100 ML IVPB SCH (11:33)
--- NOTE | 2020-02-27 11:57 | PDOC.HOSPP ---
- Subjective Encounter Date: 02/27/20 Encounter Time: 11:54 Subjective: Mr. Vazquez was seen today in follow-up of septic knee joint. He does not have any complaints. - Objective Vital Signs & Weight: Vital Signs (12 hours) Temp Pulse Resp BP BP Pulse Ox 02/27/20 11:37 98.8 F 101 H 12 139/84 99 02/27/20 08:59 98.9 F 98 14 144/90 H 100 02/27/20 08:24 100 02/27/20 08:23 144/90 H 02/27/20 04:17 97.3 F L 102 H 19 142/83 H 98 Weight Admit Weight 160 lb Weight 160 lb I&O: 02/26/20 02/27/20 02/28/20 06:59 06:59 06:59 Intake Total 1900 1160 240 Output Total 1625 1250 Balance 275 -90 240 Result Diagrams: 02/25/20 01:39 02/25/20 01:39 Additional Labs: Accuchecks 02/27/20 02/27/20 02/26/20 07:37 03:39 23:41 POC Glucose 368 H 241 H 232 H 02/26/20 02/26/20 20:01 15:05 POC Glucose 300 H 65 L Hospitalist ROS - Medication Medications: Active Medications Generic Name Dose Route Start Last Admin Trade Name Freq PRN Reason Stop Dose Admin Hydrocodone Bitart/Acetaminophen 1 tab 02/26/20 09:44 02/27/20 11:32 Hydrocodone/Acetaminophen 7.5/325 Mg Tablet PO 1 tab Q6H PRN Administration Mild Pain (1-3) Enoxaparin Sodium 40 mg 02/23/20 09:00 02/27/20 08:24 Enoxaparin Sodium 40 Mg/0.4 Ml Syringe SC 40 mg 0900 LILLI Administration Famotidine 20 mg 02/24/20 21:00 02/27/20 08:23 Famotidine 20 Mg Tab PO 20 mg BID LILLI Administration Gabapentin 300 mg 02/22/20 12:00 02/27/20 11:31 Gabapentin 300 Mg Cap PO 300 mg Q6HR LILLI Administration Insulin Glargine 20 units/ 0.2 mls @ 0 mls/hr 02/22/20 09:00 02/27/20 08:44 Miscellaneous Medication SC 0.2 mls QAM LILLI Administration Insulin Glargine 15 units/ 0.15 mls @ 0 mls/hr 02/23/20 21:00 02/26/20 20:31 Miscellaneous Medication SC 0.15 mls HS LILLI Administration Ceftriaxone Sodium 2 gm/ 100 mls @ 200 mls/hr 02/26/20 12:00 02/27/20 11:33 Sodium Chloride IVPB 100 mls 1200 LILLI Administration Insulin Human Lispro 0 units 02/22/20 03:56 02/27/20 03:47 Humalog 300 Units/3 Ml Vial SC 4 unit .MODERATE SLIDING SC PRN Administration Moderate Correctional Scale Insulin Human Lispro 15 units 02/24/20 12:00 02/27/20 08:24 Humalog 300 Units/3 Ml Vial SC 15 unit TID-WM LILLI Administration Ketorolac Tromethamine 15 mg 02/24/20 20:26 02/26/20 09:31 Ketorolac Tromethamine 30 Mg/Ml Vial IVP 02/29/20 20:27 15 mg Q6H PRN Administration Pain Lisinopril 20 mg 02/23/20 09:00 02/27/20 08:23 Lisinopril 20 Mg Tab PO 20 mg DAILY LILLI Administration Lorazepam 0.5 mg 02/26/20 09:48 02/27/20 11:33 Lorazepam 1 Mg Tab PO 0.5 mg Q6H PRN Administration Anxiety Nicotine 14 mg 02/24/20 10:00 02/27/20 08:44 Nicotine 14 Mg Patch TD 14 mg Q24HR LILLI Administration Ondansetron HCl 4 mg 02/22/20 03:56 02/25/20 23:10 Ondansetron Pf 4 Mg/2 Ml Vial IVP 4 mg Q6H PRN Administration Nausea/Vomiting Sodium Chloride 10 ml 02/22/20 21:00 02/27/20 08:25 Flush - Normal Saline 10 Ml Syringe IVF 10 ml Q12HR LILLI Administration - Exam Eye: PERRL, anicteric sclera Heart: RRR, no murmur, no gallops, no rubs, normal peripheral pulses Respiratory: CTAB, no wheezes, no rales, no ronchi, normal chest expansion, no tachypnea, normal percussion Gastrointestinal: soft, non-tender, non-distended, normal bowel sounds, no palpable masses, no hepatomegaly Extremities: no cyanosis, no edema Hosp A/P (1) Diabetes mellitus, insulin dependent (IDDM), controlled Code(s): [id number] - Status: Acute (2) Septic joint Status: Acute (3) Substance abuse Code(s): F19.10 - OTHER PSYCHOACTIVE SUBSTANCE ABUSE, UNCOMPLICATED Status: Acute - Plan * Septic knee joint- continue Rocephin. He has been cleared to receive Rocephin IM as well. * Will need to see if his insurance will cover this, and he will also need outpatient follow-up * Will discuss with Case Management * Hopefully home soon.
[2020-02-27] MEDS ORDERED: Docusate 100 MG CAP PO SCH (15:15)
[2020-02-27] MEDS ORDERED: Zolpidem Tartrate 5 MG TAB PO PRN (17:27)
[2020-02-27] MEDS ORDERED: Nicotine 14 MG PATCH TD PRN (18:13)
[2020-02-27] MEDS: Docusate 100 MG CAP PO SCH (19:54)
[2020-02-27] MEDS: Insulin Glargine 15 UNITS in Pre-Filled Syringe 1 EACH SC SCH (19:55)
[2020-02-28 02:21] LABS: Vancomycin, Trough 2.3 ug/mL
[2020-02-28] MEDS: Gabapentin 300 MG CAP PO SCH ×4 (03:27→17:15)
[2020-02-28] MEDS: HYDROcodone/Acetaminophen 7.5/325 mg Tablet PO PRN ×2 (03:44→09:28)
[2020-02-28] MEDS: Lorazepam 1 MG TAB PO PRN ×3 (03:45→21:16)
[2020-02-28] MEDS: HumaLOG 300 UNITS/3 ML VIAL SC PRN (05:12)
[2020-02-28] MEDS: Ketorolac Tromethamine 30 MG/ML VIAL IVP PRN ×2 (07:31→20:49)
[2020-02-28] MEDS: Enoxaparin Sodium 40 MG/0.4 ML SYRINGE SC SCH (09:00)
[2020-02-28] MEDS: HumaLOG 300 UNITS/3 ML VIAL SC SCH ×4 (09:00→17:16)
[2020-02-28] MEDS: Docusate 100 MG CAP PO SCH ×2 (09:00→20:38)
[2020-02-28] MEDS: Famotidine 20 MG TAB PO SCH ×2 (09:00→20:38)
[2020-02-28] MEDS: Lisinopril 20 MG TAB PO SCH (09:02)
[2020-02-28] MEDS: Insulin Glargine 20 UNITS in Pre-Filled Syringe 1 EACH SC SCH (09:28)
[2020-02-28] MEDS ORDERED: Bisacodyl 10 MG SUPP PR PRN (10:32)
--- NOTE | 2020-02-28 10:35 | PDOC.HOSPP ---
- Subjective Encounter Date: 02/28/20 Encounter Time: 10:33 Subjective: Mr. Vazquez was seen today in follow-up of infected knee joint. He notes continued pain in his knee. He says the [place] at 5mg does not help. He also notes constipation. - Objective Vital Signs & Weight: Vital Signs (12 hours) Temp Pulse Resp BP Pulse Ox 02/28/20 09:00 98.0 F 100 16 155/91 H 100 02/28/20 04:23 98.8 F 93 16 144/81 H 96 Weight Admit Weight 160 lb Weight 160 lb I&O: 02/27/20 02/28/20 02/29/20 06:59 06:59 06:59 Intake Total 1160 1380 Output Total 1250 1375 Balance -90 5 Result Diagrams: 02/25/20 01:39 02/25/20 01:39 Additional Labs: Accuchecks 02/28/20 02/28/20 02/27/20 08:59 04:27 20:47 POC Glucose 420 H 433 H 89 02/27/20 02/27/20 02/27/20 19:34 16:24 11:46 POC Glucose 72 199 H 369 H Hospitalist ROS - Medication Medications: Active Medications Generic Name Dose Route Start Last Admin Trade Name Freq PRN Reason Stop Dose Admin Hydrocodone Bitart/Acetaminophen 1 tab 02/26/20 09:44 02/28/20 09:28 Hydrocodone/Acetaminophen 7.5/325 Mg Tablet PO 1 tab Q6H PRN Administration Mild Pain (1-3) Docusate Sodium 100 mg 02/27/20 21:00 02/28/20 09:00 Docusate 100 Mg Cap PO 100 mg BID LILLI Administration Enoxaparin Sodium 40 mg 02/23/20 09:00 02/28/20 09:00 Enoxaparin Sodium 40 Mg/0.4 Ml Syringe SC 40 mg 0900 LILLI Administration Famotidine 20 mg 02/24/20 21:00 02/28/20 09:00 Famotidine 20 Mg Tab PO 20 mg BID LILLI Administration Gabapentin 300 mg 02/22/20 12:00 02/28/20 05:08 Gabapentin 300 Mg Cap PO 300 mg Q6HR LILLI Administration Insulin Glargine 20 units/ 0.2 mls @ 0 mls/hr 02/22/20 09:00 02/28/20 09:28 Miscellaneous Medication SC 0.2 mls QAM LILLI Administration Insulin Glargine 15 units/ 0.15 mls @ 0 mls/hr 02/23/20 21:00 02/27/20 19:55 Miscellaneous Medication SC Not Given HS LILLI Ceftriaxone Sodium 2 gm/ 100 mls @ 200 mls/hr 02/26/20 12:00 02/27/20 11:33 Sodium Chloride IVPB 100 mls 1200 LILLI Administration Insulin Human Lispro 0 units 02/22/20 03:56 02/28/20 05:12 Humalog 300 Units/3 Ml Vial SC 10 unit .MODERATE SLIDING SC PRN Administration Moderate Correctional Scale Insulin Human Lispro 15 units 02/24/20 12:00 02/28/20 09:00 Humalog 300 Units/3 Ml Vial SC 15 unit TID-WM LILLI Administration Ketorolac Tromethamine 15 mg 02/24/20 20:26 02/28/20 07:31 Ketorolac Tromethamine 30 Mg/Ml Vial IVP 02/29/20 20:27 15 mg Q6H PRN Administration Pain Lisinopril 20 mg 02/23/20 09:00 02/28/20 09:02 Lisinopril 20 Mg Tab PO 20 mg DAILY LILLI Administration Lorazepam 0.5 mg 02/26/20 09:48 02/28/20 09:27 Lorazepam 1 Mg Tab PO 0.5 mg Q6H PRN Administration Anxiety Ondansetron HCl 4 mg 02/22/20 03:56 02/25/20 23:10 Ondansetron Pf 4 Mg/2 Ml Vial IVP 4 mg Q6H PRN Administration Nausea/Vomiting Sodium Chloride 10 ml 02/22/20 21:00 02/28/20 09:02 Flush - Normal Saline 10 Ml Syringe IVF 10 ml Q12HR LILLI Administration - Exam Eye: PERRL, anicteric sclera Heart: RRR, no murmur, no gallops, no rubs, normal peripheral pulses Respiratory: CTAB, no wheezes, no rales, no ronchi, normal chest expansion Gastrointestinal: soft, non-tender, non-distended, normal bowel sounds, no palpable masses Extremities: no cyanosis, no edema (except some synovial swelling, and mild erythema about the knee) Hosp A/P (1) Septic joint Status: Acute (2) Diabetes mellitus, insulin dependent (IDDM), controlled Code(s): [id number] - Status: Acute (3) Substance abuse Code(s): F19.10 - OTHER PSYCHOACTIVE SUBSTANCE ABUSE, UNCOMPLICATED Status: Acute - Plan * Septic knee joint- continue Rocephin. He has been cleared to receive Rocephin IM as well. * Awaiting out patient Antibiotic arrangements * DM- blood glucose has been labile. His evening Lantus was held due to low blood glucose last night. He has just been given his morning dose of Lantus, and Novolog. Will monitor the trend today and continue with SSI * Tobacco Abuse- Nicotine patch as needed * Hopefully home soon.
[2020-02-28] MEDS: Polyethylene Glycol 3350 17 GM Packet PO PRN (11:28)
[2020-02-28] MEDS: cefTRIAXone\\ROCEPHIN 2 GM in Sodium Chloride 0.9% 100 ML IVPB SCH (12:32)
[2020-02-28] MEDS: HYDROcodone/Acetaminophen 10/325 mg Tablet PO PRN ×3 (13:29→21:15)
[2020-02-28] MEDS: Insulin Glargine 15 UNITS in Pre-Filled Syringe 1 EACH SC SCH (20:38)
[2020-02-29] MEDS: Gabapentin 300 MG CAP PO SCH ×5 (00:11→23:26)
[2020-02-29] MEDS: HYDROcodone/Acetaminophen 10/325 mg Tablet PO PRN ×5 (04:23→20:28)
[2020-02-29] MEDS: Lorazepam 1 MG TAB PO PRN ×3 (04:23→17:34)
[2020-02-29] MEDS: Ketorolac Tromethamine 30 MG/ML VIAL IVP PRN ×2 (04:24→17:38)
[2020-02-29] MEDS: Famotidine 20 MG TAB PO SCH ×2 (08:29→20:28)
[2020-02-29] MEDS: Polyethylene Glycol 3350 17 GM Packet PO PRN (08:30)
[2020-02-29] MEDS: Enoxaparin Sodium 40 MG/0.4 ML SYRINGE SC SCH (08:30)
[2020-02-29] MEDS: Docusate 100 MG CAP PO SCH ×2 (08:30→20:28)
[2020-02-29] MEDS: Lisinopril 20 MG TAB PO SCH (08:30)
[2020-02-29] MEDS: HumaLOG 300 UNITS/3 ML VIAL SC SCH ×3 (08:31→16:13)
[2020-02-29] MEDS: Insulin Glargine 20 UNITS in Pre-Filled Syringe 1 EACH SC SCH (09:40)
[2020-02-29] MEDS: cefTRIAXone\\ROCEPHIN 2 GM in Sodium Chloride 0.9% 100 ML IVPB SCH (12:16)
--- NOTE | 2020-02-29 15:39 | PDOC.HOSPP ---
- Subjective Encounter Date: 02/29/20 Encounter Time: 15:38 Subjective: Mr. Vazquez was seen today in follow-up of infected knee joint. He does not have any new complaints. - Objective Vital Signs & Weight: Vital Signs (12 hours) Temp Pulse Resp BP Pulse Ox 02/29/20 12:15 98.8 F 97 18 156/85 H 100 02/29/20 08:24 98.7 F 101 H 18 176/93 H 98 02/29/20 03:48 98.6 F 98 16 145/82 H 98 Weight Admit Weight 160 lb Weight 160 lb I&O: 02/28/20 02/29/20 03/01/20 06:59 06:59 06:59 Intake Total 1380 2820 Output Total 1375 850 Balance 1969 Result Diagrams: 02/25/20 01:39 02/25/20 01:39 Additional Labs: Accuchecks 02/29/20 02/29/20 02/29/20 15:30 12:16 08:28 POC Glucose 65 L 142 H 216 H 02/29/20 02/28/20 02/28/20 03:52 23:50 20:44 POC Glucose 127 H 107 H 138 H Hospitalist ROS - Medication Medications: Active Medications Generic Name Dose Route Start Last Admin Trade Name Freq PRN Reason Stop Dose Admin Hydrocodone Bitart/Acetaminophen 1 tab 02/26/20 09:44 02/28/20 09:28 Hydrocodone/Acetaminophen 7.5/325 Mg Tablet PO 1 tab Q6H PRN Administration Mild Pain (1-3) Hydrocodone Bitart/Acetaminophen 1 tab 02/28/20 10:31 02/29/20 12:16 Hydrocodone/Acetaminophen 10/325 Mg Tablet PO 1 tab Q4H PRN Administration Moderate to Severe Pain (6-10) Bisacodyl 10 mg 02/28/20 10:32 02/28/20 11:28 Bisacodyl 10 Mg Supp MN 10 mg DAILYPRN PRN Administration Constipation Docusate Sodium 100 mg 02/27/20 21:00 02/29/20 08:30 Docusate 100 Mg Cap PO 100 mg BID LILLI Administration Enoxaparin Sodium 40 mg 02/23/20 09:00 02/29/20 08:30 Enoxaparin Sodium 40 Mg/0.4 Ml Syringe SC 40 mg 0900 LILLI Administration Famotidine 20 mg 02/24/20 21:00 02/29/20 08:29 Famotidine 20 Mg Tab PO 20 mg BID LILLI Administration Gabapentin 300 mg 02/22/20 12:00 02/29/20 11:39 Gabapentin 300 Mg Cap PO 300 mg Q6HR LILLI Administration Insulin Glargine 20 units/ 0.2 mls @ 0 mls/hr 02/22/20 09:00 02/29/20 09:40 Miscellaneous Medication SC 0.2 mls QAM LILLI Administration Insulin Glargine 15 units/ 0.15 mls @ 0 mls/hr 02/23/20 21:00 02/28/20 20:38 Miscellaneous Medication SC 0.15 mls HS LILLI Administration Ceftriaxone Sodium 2 gm/ 100 mls @ 200 mls/hr 02/26/20 12:00 02/29/20 12:16 Sodium Chloride IVPB 100 mls 1200 LILLI Administration Insulin Human Lispro 0 units 02/22/20 03:56 02/28/20 05:12 Humalog 300 Units/3 Ml Vial SC 10 unit .MODERATE SLIDING SC PRN Administration Moderate Correctional Scale Insulin Human Lispro 10 units 02/28/20 12:00 02/29/20 12:17 Humalog 300 Units/3 Ml Vial SC 10 unit TID-WM LILLI Administration Ketorolac Tromethamine 15 mg 02/24/20 20:26 02/29/20 04:24 Ketorolac Tromethamine 30 Mg/Ml Vial IVP 02/29/20 20:27 15 mg Q6H PRN Administration Pain Lisinopril 20 mg 02/23/20 09:00 02/29/20 08:30 Lisinopril 20 Mg Tab PO 20 mg DAILY LILLI Administration Lorazepam 0.5 mg 02/26/20 09:48 02/29/20 11:38 Lorazepam 1 Mg Tab PO 0.5 mg Q6H PRN Administration Anxiety Ondansetron HCl 4 mg 02/22/20 03:56 02/25/20 23:10 Ondansetron Pf 4 Mg/2 Ml Vial IVP 4 mg Q6H PRN Administration Nausea/Vomiting Polyethylene Glycol 17 gm 02/28/20 10:32 02/29/20 08:30 Polyethylene Glycol 3350 17 Gm Packet PO 17 gm DAILYPRN PRN Administration Constipation Sodium Chloride 10 ml 02/22/20 21:00 02/29/20 08:31 Flush - Normal Saline 10 Ml Syringe IVF 10 ml Q12HR LILLI Administration - Exam Eye: PERRL, anicteric sclera Heart: RRR, no murmur, no gallops, no rubs, normal peripheral pulses Respiratory: CTAB, no wheezes, no rales, no ronchi, normal chest expansion, no tachypnea Gastrointestinal: soft, non-tender, non-distended, normal bowel sounds, no palpable masses, no hepatomegaly, no splenomegaly Extremities: no cyanosis, no edema Hosp A/P (1) Septic joint Status: Acute (2) Diabetes mellitus, insulin dependent (IDDM), controlled Code(s): [id number] - Status: Acute (3) Substance abuse Code(s): F19.10 - OTHER PSYCHOACTIVE SUBSTANCE ABUSE, UNCOMPLICATED Status: Acute - Plan * Septic knee joint- continue Rocephin. He has been cleared to receive Rocephin IM as well. * Awaiting out patient Antibiotic arrangements * DM- He normally uses 70/30 insulin instead of Lantus- will try switching hm to his usual insulin, hopefully with better glycemic control- continue SSI * Tobacco Abuse- Nicotine patch as needed * Hopefully home soon.
[2020-02-29] MEDS: HumuLIN 70/30 (300 UNITS/3 ML VIAL) SC SCH (16:13)
--- NOTE | 2020-02-29 16:52 | PRG ---
DATE OF SERVICE: 02/29/2020 SUBJECTIVE: Mr. Vazquez is upset because he wants to go home and there has been some delay in the setting up of his outpatient treatment. His pain in the knee is improving significantly. He is able to flex it and bear weight. He denies any respiratory symptoms. No abdominal pain. He finally had a bowel movement. Voiding without difficulty. OBJECTIVE: VITAL SIGNS: His T-max 98.8, blood pressure 150/80, heart rate 97, respiratory rate 18, O2 saturation 100%, and right knee dressing was not removed. LYMPHATIC: He has no lymphadenopathy. HEENT: Ocular movements conjugate. Oral cavity normal. Numerous missing teeth. LUNGS: Symmetric. Clear breath sounds. EXTREMITIES: Right knee, moderately swollen. Range of motion has improved markedly. LABORATORY STUDIES: Creatinine 0.91. White cell count 10.6, hemoglobin 8.2. Hepatitis C antibody positive. He has 44,600,000 copies of HCV RNA per mL, which is a record. I have never seen so many. Group B strep and knee cultures. ASSESSMENT AND DISCUSSION: Methamphetamine use, type 1 diabetes, right knee septic arthritis due to group B Streptococcus, has been clear-cut improvement, is eligible for discharge planning. Endocarditis is less likely since the blood cultures are negative, so the plan now is to continue Rocephin and in my note to Case Management I specified that it could be given IV or intramuscular. I think IM administration would be better for him due to his history of drug use and weekly labs as noted to the Case Management. Job ID: [id number]
[2020-02-29] MEDS: HYDROcodone/Acetaminophen 7.5/325 mg Tablet PO PRN (17:39)
[2020-02-29] MEDS: HumaLOG 300 UNITS/3 ML VIAL SC PRN (20:28)
[2020-03-01] MEDS: HYDROcodone/Acetaminophen 10/325 mg Tablet PO PRN ×4 (00:35→15:35)
[2020-03-01] MEDS: HumaLOG 300 UNITS/3 ML VIAL SC PRN ×2 (00:35→11:25)
[2020-03-01] MEDS: Lorazepam 1 MG TAB PO PRN ×2 (03:39→11:16)
[2020-03-01] MEDS: HYDROcodone/Acetaminophen 7.5/325 mg Tablet PO PRN (03:39)
[2020-03-01] MEDS: Gabapentin 300 MG CAP PO SCH ×2 (06:11→11:16)
[2020-03-01] MEDS: HumuLIN 70/30 (300 UNITS/3 ML VIAL) SC SCH (07:33)
[2020-03-01] MEDS: Docusate 100 MG CAP PO SCH (08:35)
[2020-03-01] MEDS: Polyethylene Glycol 3350 17 GM Packet PO PRN (08:35)
[2020-03-01] MEDS: Famotidine 20 MG TAB PO SCH (08:35)
[2020-03-01] MEDS: Enoxaparin Sodium 40 MG/0.4 ML SYRINGE SC SCH (08:35)
[2020-03-01] MEDS: Lisinopril 20 MG TAB PO SCH (08:35)
[2020-03-01 11:12] VITALS: BP 156/81; TEMP 98.9
[2020-03-01] MEDS: cefTRIAXone\\ROCEPHIN 2 GM in Sodium Chloride 0.9% 100 ML IVPB SCH (11:15)
--- NOTE | 2020-03-01 12:19 | PDOC.HOSPP ---
- Subjective Encounter Date: 03/01/20 Encounter Time: 12:14 Subjective: Mr. Vazquez was seen today in follow-up of septic knee joint. He does not have any new complaints. - Objective Vital Signs & Weight: Vital Signs (12 hours) Temp Pulse Resp BP BP Pulse Ox 03/01/20 11:11 98.9 F 105 H 20 156/81 H 99 03/01/20 08:35 155/89 H 03/01/20 08:01 99.1 F 95 16 172/105 H 99 03/01/20 03:20 98.1 F 100 20 145/85 H 99 Weight Admit Weight 160 lb Weight 160 lb I&O: 02/29/20 03/01/20 03/02/20 06:59 06:59 06:59 Intake Total 2820 3190 Output Total 850 300 Balance 1970 2890 Result Diagrams: 02/25/20 01:39 02/25/20 01:39 Additional Labs: Accuchecks 03/01/20 03/01/20 03/01/20 11:10 07:33 06:31 POC Glucose 168 H 257 H 207 H 03/01/20 02/29/20 02/29/20 03:26 23:35 19:51 POC Glucose 142 H 260 H 422 H 02/29/20 02/29/20 02/29/20 16:25 15:50 15:30 POC Glucose 96 68 L 65 L 02/29/20 02/29/20 15:06 12:16 POC Glucose 49 L* 142 H Hospitalist ROS - Medication Medications: Active Medications Generic Name Dose Route Start Last Admin Trade Name Freq PRN Reason Stop Dose Admin Hydrocodone Bitart/Acetaminophen 1 tab 02/26/20 09:44 03/01/20 03:39 Hydrocodone/Acetaminophen 7.5/325 Mg Tablet PO 1 tab Q6H PRN Administration Mild Pain (1-3) Hydrocodone Bitart/Acetaminophen 1 tab 02/28/20 10:31 03/01/20 11:16 Hydrocodone/Acetaminophen 10/325 Mg Tablet PO 1 tab Q4H PRN Administration Moderate to Severe Pain (6-10) Bisacodyl 10 mg 02/28/20 10:32 02/28/20 11:28 Bisacodyl 10 Mg Supp ME 10 mg DAILYPRN PRN Administration Constipation Docusate Sodium 100 mg 02/27/20 21:00 12/22/20 08:35 Docusate 100 Mg Cap PO 100 mg BID LILLI Administration Enoxaparin Sodium 40 mg 02/23/20 09:00 03/01/20 08:35 Enoxaparin Sodium 40 Mg/0.4 Ml Syringe SC 40 mg 0900 LILLI Administration Famotidine 20 mg 02/24/20 21:00 03/01/20 08:35 Famotidine 20 Mg Tab PO 20 mg BID LILLI Administration Gabapentin 300 mg 02/22/20 12:00 03/01/20 11:16 Gabapentin 300 Mg Cap PO 300 mg Q6HR LILLI Administration Ceftriaxone Sodium 2 gm/ 100 mls @ 200 mls/hr 02/26/20 12:00 03/01/20 11:15 Sodium Chloride IVPB 100 mls 1200 LILLI Administration Insulin Human Isoph/Insulin Regular 30 units 02/29/20 16:30 03/01/20 07:33 Humulin 70/30 (300 Units/3 Ml Vial) SC 30 unit BID-AC LILLI Administration Insulin Human Lispro 0 units 02/22/20 03:56 03/01/20 11:25 Humalog 300 Units/3 Ml Vial SC 2 unit .MODERATE SLIDING SC PRN Administration Moderate Correctional Scale Lisinopril 20 mg 02/23/20 09:00 03/01/20 08:35 Lisinopril 20 Mg Tab PO 20 mg DAILY LILLI Administration Lorazepam 0.5 mg 02/26/20 09:48 03/01/20 11:16 Lorazepam 1 Mg Tab PO 0.5 mg Q6H PRN Administration Anxiety Ondansetron HCl 4 mg 02/22/20 03:56 02/25/20 23:10 Ondansetron Pf 4 Mg/2 Ml Vial IVP 4 mg Q6H PRN Administration Nausea/Vomiting Polyethylene Glycol 17 gm 02/28/20 10:32 03/01/20 08:35 Polyethylene Glycol 3350 17 Gm Packet PO 17 gm DAILYPRN PRN Administration Constipation Sodium Chloride 10 ml 02/22/20 21:00 03/01/20 08:35 Flush - Normal Saline 10 Ml Syringe IVF 10 ml Q12HR LILLI Administration - Exam Eye: PERRL, anicteric sclera Heart: RRR, no murmur, no gallops, no rubs, normal peripheral pulses Respiratory: CTAB, no wheezes, no rales, no ronchi, normal chest expansion Gastrointestinal: soft, non-tender, non-distended, normal bowel sounds Extremities: no cyanosis, no clubbing, 1+ LE edema Hosp A/P (1) Septic joint Status: Acute (2) Diabetes mellitus, insulin dependent (IDDM), controlled Code(s): [id number] - Status: Acute (3) Substance abuse Code(s): F19.10 - OTHER PSYCHOACTIVE SUBSTANCE ABUSE, UNCOMPLICATED Status: Acute - Plan * Septic knee joint- continue Rocephin. He has been cleared to receive Rocephin IM as well. * Awaiting out patient Antibiotic arrangements as well as wound care. He will also get a Donovan wound vac as well * DM- Blood glucose is a bit better * Hopefully home soon.
--- NOTE | 2020-03-01 22:08 | DIS ---
DATE OF ADMISSION: 02/22/2020 DATE OF DISCHARGE: 03/01/2020 DISCHARGE DISPOSITION: Home. DISCHARGE DIAGNOSES: 1. Right septic knee joint. 2. Diabetes mellitus, insulin dependent. 3. Hypertension. 4. Coronary artery disease, status post one-vessel CABG. DISCHARGE MEDICATIONS: Include: 1. Rocephin 1 g IM daily for 2 weeks. 2. Also 70/30 insulin 30 units subcu b.i.d. 3. Gabapentin 300 mg p.o. q.6. 4. Insulin sliding scale. 5. Lisinopril 20 mg p.o. daily. 6. Viking 10/325 q.4 hours as needed for pain. PROCEDURES DONE DURING THE ADMISSION: The patient had an I and D of the infected right knee joint. CODE STATUS: Full code. ALLERGIES: SULFA. HOSPITAL COURSE: Mr. Vazquez is a pleasant 44-year-old gentleman, who was admitted to the hospital with severe pain in his right knee. He was evaluated and found to have a septic knee joint. Orthopedic Surgery was consulted and he underwent I and D of the septic knee and washout. The cultures grew Streptococcus agalactiae. ID was consulted and it was felt that Rocephin would be the best antibiotic choice in this situation. The patient is uninsured and Case Management was consulted to aid in the discharge planning. Arrangements were made for him to receive the antibiotics in the IM route, and this is as a result of a history of drug abuse and this would be administered in the outpatient infusion center here at our facility. Also, arrangements were made for him to get wound care at the [facility] in [place], and once these arrangements were made and he did also receive a TAJ wound VAC to hold him over until his appointment at the [facility]. After these arrangements were made, the patient was able to be discharged home and to have follow up in the outpatient setting. Job ID: [id number]
--- NOTE | 2020-03-02 19:44 | PQF ---
Dear : Chato Gutiérrez Date 03/02/2020 Please exercise your independent, professional judgment in responding to the clarification form. Clinical indicators are provided on the bottom of this form for your review Can you please further clarify the type and depth of procedure being performed to the patient? Please check appropriate box(es): [ ] Excisional Debridement: [ ] Excised [ ] Cut away [ ] Other: Depth / layer: (deepest layer of debridement): [ ] Skin [ ] Subcutaneous [ ] Fascia [ ] Muscle [ ] Tendon [ ] Bone [ x ] Non-excisional Debridement: (Removal by ?ushing, brushing, chemical, or washing) Depth / layer: (deepest layer of debridement): [ ] Skin [ ] Subcutaneous [ ] Fascia [ ] Muscle [ x ] Tendon [ ] Bone [ ] Incision and Drainage only (No Debridement): Depth: [ ] Skin [ ] Subcutaneous [ ] Fascia [ ] Muscle [ ] Tendon [ ] Bone [ ] Other procedure diagnosis please specify [ ] Unable to determine Physician Signature: Date/Time: For continuity of documentation, please document condition throughout progress notes and discharge summary. Thank You. To be completed by CDI/Coding staff for physician review: Present Clinical Indicators - Signs / Symptoms / Labs Results and Location in Medical Record [ x ] Irrigation and debridement of right knee infection OP report pg.1 [ x ] Dissected down through subcutaneous tissue to the retinaculum. OP report pg.1 [ x ] Medial retinacular tissue were incised OP report pg.1 [ x ] Debrided with a curette and rongeur OP report pg.1 [ x ] Large subcutaneous abscess was debrided with curette and thorouly irrigated with 3l of lavage OP report pg.1 Present Risk Factors Results and Location in Medical Record [ x ] Right Septic knee with abscess formation OP report pg.1 [ x ] Cellulitis right knee H and P pg.2 [ x ] DM H and P pg.1 [ x ] HTN H and P pg.1 Present Treatments Results and Location in Medical Record [ x ] Irrigation and debridement of right knee infection OP report pg.1 [ x ] IV Fluids MAR [ x ] Cefepime 2gm MAR [ x ] Vancomycin 1gm MAR CDS/Registered Nurse Post Partum Signature: Gee Zhong Phone #: ext [phone] Date 03/03/2020 This is a permanent part of the Medical Record [facility]
== END 2020-03-01 16:00 | disposition home or self-care (01) | DRG 501 ==
LOC: SURG A 03:33
PROVIDERS: ADMIT Internal Medicine; ATTEND Internal Medicine
PROC: 0LDQ0ZZ Extraction of Right Knee Tendon, Open Approach (ICD-10-PCS; principal; 2020-02-23)
DX: M00.261 Other streptococcal arthritis, right knee (principal); L03.115 Cellulitis of right lower limb; B95.1 Streptococcus, group B, as the cause of diseases classified elsewhere; Z20.828 Contact with and (suspected) exposure to other viral communicable diseases; I10 Essential (primary) hypertension; E10.65 Type 1 diabetes mellitus with hyperglycemia; F17.210 Nicotine dependence, cigarettes, uncomplicated; F15.10 Other stimulant abuse, uncomplicated; I25.10 Atherosclerotic heart disease of native coronary artery without angina pectoris; D64.9 Anemia, unspecified; Z95.1 Presence of aortocoronary bypass graft; Z79.4 Long term (current) use of insulin; Z88.2 Allergy status to sulfonamides; Z79.899 Other long term (current) drug therapy
CPT/HCPCS: 36415; 36416; 80053; 80202; 82947; 83036; 85025; 86803; 87070; 87077; 87186; 87205; 87389; 87522; 87635; 93005; 93010; J0692; J0696; J1100; J1650; J1815; J1885; J2060; J2250; J2270; J2405; J2704; J3010; J3370; J3490; J7050; J7620; U0003

== ENCOUNTER 2020-03-06 01:20 | Inpatient (IN) | payer OTHER, SELFPAY ==
[2020-03-06 01:49] LABS: Color Of CSF Supernatant COLORLESS (Colorless); Tube # 2; Unspun CSF Color COLORLESS (Colorless)
[2020-03-06 01:56] LABS: Actual Bicarbonate (HCO3a) 24.9 mEq/L (22-28); Analyzer IN Cardio ER; Base Excess (BEa) -1.6 mEq/L (-2.0 to +3.0); Calcium, Ionized (arterial) 1.11 mmol/L (1.12-1.30); Carboxyhemoglobin (COHb) 0.3 gm% (0.0-3.0); Hemoglobin (Hb) 9.4 g/dL (14.0-18.0); Potassium - ABG Lab 3.38 mmol/L (3.70-5.30); pH, Arterial 7.31 (7.35-7.45)
[2020-03-06 01:59] LABS: O2 Tension (PaO2), arterial 55.1 mmHg (80.0-100.0)
[2020-03-06 02:00] LABS: Puncture Site RRA
[2020-03-06 02:04] LABS: CSF, Glucose 42 mg/dl (40-70); CSF, Protein 34 mg/dL (15-40)
[2020-03-06 02:27] LABS: CSF Source CSF; Clarity Clear (Clear)
[2020-03-06 02:28] LABS: CSF Source CSF; Clarity Clear (Clear); Tube # 1; Tube # 4
[2020-03-06 03:18] LABS: SARS-CoV-2 NAA Rapid Test Not Detected (NotDetected)
[2020-03-06 04:14] LABS: Actual Bicarbonate (HCO3a) 23.6 mEq/L (22-28); Analyzer IN Cardio ER; Base Excess (BEa) 0.1 mEq/L (-2.0 to +3.0); CO2 Tension 33.4 mmHg (35.0-45.0); Calcium, Ionized (arterial) 1.07 mmol/L (1.12-1.30); Carboxyhemoglobin (COHb) 0.3 gm% (0.0-3.0); Potassium - ABG Lab 3.51 mmol/L (3.70-5.30); pH, Arterial 7.47 (7.35-7.45)
[2020-03-06 04:16] LABS: O2 Tension (PaO2), arterial 543.3 mmHg (80.0-100.0); Puncture Site RBA
[2020-03-06] MEDS ORDERED: Dextrose 50% Abboject 50 ML SYRINGE ONE (04:26)
[2020-03-06] MEDS ORDERED: Dextrose 5% in Water 1,000 ML IV PRN (04:32)
[2020-03-06] MEDS ORDERED: Dextrose 50% Abboject 50 ML SYRINGE SLOW IVP PRN (04:32)
--- NOTE | 2020-03-06 05:24 | PDOC.HHP ---
Hospitalist HPI - History of Present Illness Altered mental status History of Present Illness: This is a 44-year-old male patient with a history of type 1 diabetes mellitus, hypertension who was transferred from [facility] on account of severe hypoglycemia and sepsis. Patient was severely hypoglycemic and agitated thus was intubated at the outside facility prior to transfer here. Of note patient was admitted here and discharged on 03/01/2020 after he was managed for right septic knee joint with irrigation and debridement of his knee on 02/23/2020. Apparently patient never adhered to medication and follow-up instructions on discharge. At presentation to the outside hospital patient was oriented confused and combative. His gait was said to be unsteady. His blood pressures were 116/75, pulse 100, saturating 100% on [id number]. He was found to be severely hypoglycemic with blood glucose of 43. Given his combativeness and altered mental status he was intubated. CT scan of his head subsequently done was negative. His labs showed WBC 6.5, hemoglobin 8.7 platelet 410, on his BMP his glucose was as low as 28. Urine drug screen was positive for opiates, barbiturates amphetamines and methamphetamines. He received Haldol, cefepime dextrose prior to being transferred. On arrival here his blood pressure was 112/65, pulse 102, respiratory rate 14, temperature initially 93.6 and saturating on the ventilator support. He had a CTA of his thorax which revealed no PE. ABG at presentation was pH 7.31, PCO2 51.5 and PO2 55.1. Upon vent adjustments pH went up to 7.74, PCO2 down to 33.4 and PO2 543. He was placed on dextrose drip with improvement in his blood sugars to above 100s. Also received intravenous propranolol. Hospitalist team was consulted for admission Hospitalist ROS - Review of Systems ROS unobtainable: due to mental status Hospitalist History - Past Medical History Other Medical History: Diabetes mellitus, septic arthritis - Past Surgical History Other Surgical History: incision and debridement of right septic knee - Family History Family History: reports: no pertinent history - Social History Drugs: reports: methamphetamine Activity level: independent ambulation - Exam General - other findings: Patient and intubated. Eye: PERRL, anicteric sclera ENT: normocephalic atraumatic Heart: RRR, no murmur, no gallops, no rubs, normal peripheral pulses Respiratory: CTAB, no wheezes, no rales, no ronchi Gastrointestinal: soft, non-tender, non-distended, normal bowel sounds Extremities: no cyanosis, no clubbing, no edema Skin: normal turgor, no lesions, no rashes Neurological - other findings: Pupils constricted but reactive. Musculoskeletal - other findings: Right knee swelling with incision draining serosanguineous fluid. Psychiatric - other findings: Unable to assess Hospitalist Results - Labs Result Diagrams: 03/09/20 03:41 03/09/20 03:41 Lab results: ABG pH 7.47 (7.35-7.45) H 03/06/20 04:09 ABG pCO2 33.4 mmHg (35.0-45.0) L 03/06/20 04:09 ABG pO2 543.3 mmHg (80.0-100.0) H* 03/06/20 04:09 Hospitalist H&P A/P - Plan Plan: This is a 44-year-old male patient with a history of type 1 diabetes mellitus, recent right septic arthritis status post I&D who presents with altered mental status and intubated for agitation and for airway protection. Initial concerns are for sepsis Severe sepsis Patient initially hypothermic at 93.6, altered mental status, tachycardic and tachypneic. Source likely right knee Lactate not elevated at the moment. Received 2 L of normal saline at outside facility and 1 L on arrival here. Also received cefepimewe will continue with vancomycin and Zosyn to cover broadly for now. Blood cultures drawn pending Also CSF was drawn and is pending. Continue monitoring in CCU. Acute encephalopathy Likely secondary to hypoglycemia/sepsis We will go ahead and treat underlying causes Acute hypoxic respiratory failure Patient intubated for airway protection due to altered mental status Initial ABG showed hypoxemia currently recovering. Appreciate pulmonology input Septic right knee Patient is status post I&D however may require reevaluation. Continue antibiotics Orthopedic consult. Severe hypoglycemia Unclear cause Probably due to insulin excess however this is unclear. Currently glucose is normal Continue IV dextrose drip and monitor glucose. Multisubstance abuse Patient to be counseled after acute event subsided VT prophylaxisLovenox CODE STATUSfull code for now
[2020-03-06] MEDS ORDERED: Propofol 1,000 MG/100 ML VIAL IV ONE (05:27)
[2020-03-06] MEDS ORDERED: Propofol BOLUS 1,000 MG/100 ML VIAL IV PRN (05:30)
[2020-03-06] MEDS ORDERED: Morphine 2 MG/ML VIAL SLOW IVP PRN (05:30)
[2020-03-06] MEDS ORDERED: fentaNYL Citrate/PF 2,000 MCG in Sodium Chloride 0.9% 60 ML IV SCH (05:30)
[2020-03-06] MEDS ORDERED: DISCONTINUE PREVIOUS NARCOTIC PAIN MEDICATIONS AND BENZODIAZEPINES FS SCH (05:30)
[2020-03-06] MEDS ORDERED: Fentanyl BOLUS 250 ML IVPB PRN (05:30)
[2020-03-06] MEDS: Piperacillin/Tazobactam 4.5 GM in Sodium Chloride 0.9% 100 ML IVPB SCH ×2 (05:35→13:34)
[2020-03-06] MEDS: Sodium Chloride 0.9% 1,000 ML IV SCH (05:36)
[2020-03-06] MEDS: Vancomycin 1 GM in Premix Bag 1 BAG IVPB SCH ×2 (07:29→15:34)
[2020-03-06] MEDS: Lorazepam 2 MG/ML VIAL SLOW IVP PRN ×4 (07:29→17:12)
[2020-03-06] MEDS ORDERED: Vancomycin 1 GM in Premix Bag 1 BAG IVPB SCH (08:00)
--- NOTE | 2020-03-06 09:04 | CT ---
PRELIMINARY REPORT/[facility]/EMERGENCY AFTER HOURS PROCEDURE EXAM: CTA Chest with Intravenous Contrast CLINICAL HISTORY: Intubated transfer, R/O PE initial complaint of AMS TECHNIQUE: Axial CTA images of the chest with intravenous contrast. Three-dimensional MIP/volume rendered reform ations were performed. CONTRAST: With; ISOVUE 370; 75mL COMPARISON: None provided. FINDINGS: PULMONARY ARTERIES There is no intraluminal filling defect suspicious for PE. AORTA No thoracic aortic aneurysm or dissection. LUNGS Mild septal thickening noted in the lower lungs no confluent airspace opacities. No significant pleur al effusion. PLEURAL SPACES No pleural effusion. No pneumothorax. HEART AND MEDIASTINUM Heart is mildly enlarged. There are atherosclerotic calcifications in the coronary arteries. The endo tracheal tube and NG tube are present. Esophagus shows diffuse wall thickening. Stomach is nondistended. LYMPH NODES No lymphadenopathy. BONES No focal osseous abnormality or acute fracture. CHEST WALL AND UPPER ABDOMEN Images through the upper abdomen are unremarkable. The chest wall is unremarkable. IMPRESSION: No evidence for acute pulmonary embolism Findings suggestive of interstitial pulmonary edema Diffuse esophageal wall thickening. Recommend clinical correlation for esophagitis. ELECTRONICALLY SIGNED BY: Tiffanie Eric MD Mar 06, 2020 4:01:05 AM SECOND WORKER This report is intended for review by the ordering physician only, in accordance of law. If you recei ve this report in error, please call [facility] at [phone]. FINAL REPORT EMERGENCY AFTER HOURS CTA CHEST: I agree with the preliminary report provided by [facility] that no definite central or segmenta l pulmonary embolus is grossly evident. There is diffuse wall thickening involving the esophagus which is nonspecific and may be related to esophagitis or mass. There is some fluid distention of the esophagus that may reflect dysmotility or reflux. There is subsegmental volume loss involving both lower lobes. There are areas of subchondral sclerosis involving the superior endplates of T11 and T10 suspicious for healing compression abnormalities. These are of undetermined acuity. There are healing right anterolateral fifth and sixth rib fractures. Transcribed Date/Time: 03/06/2020 9:26 AM
[2020-03-06] MEDS: Enoxaparin Sodium 40 MG/0.4 ML SYRINGE SC SCH (09:19)
--- NOTE | 2020-03-06 09:21 | RAD ---
Exam:4 views right knee HISTORY: Seizure. COMPARISON: 02/22/2020 FINDINGS: Large suprapatellar effusion. Joint spaces are preserved. No fractures or malalignment. Small foci of lucency along the lateral asp ect of the distal femur may represent changes from a soft tissue infection. Stable curvilinear density. Atherosclerosis. IMPRESSION: Joint effusion with small foci of subcutaneous emphysema. Correlate for soft tissue infection. Results of study discussed with Christopher, patient's nurse, at 9:19 AM on 03/06/2020. CODE CR. Transcribed Date/Time: 03/06/2020 9:28 AM
[2020-03-06] MEDS ORDERED: Iopamidol 370 76% 100 ML VIAL ONE (09:30)
--- NOTE | 2020-03-06 09:31 | PDOC.HOSPP ---
- Subjective Encounter Date: 03/06/20 (f/u hypoglycemia) Encounter Time: 09:29 Subjective: Pt remains intubated and sedated with propofol. He is on D10 due to hypoglycemia and blood sugars have been trending down. No overnight events. - Objective Vital Signs & Weight: Vital Signs (12 hours) Resp Pulse Ox 03/06/20 06:00 16 03/06/20 05:56 100 Weight Weight 138 lb 14.259 oz Most Recent Monitor Data Heart Rate from ECG 100 NIBP 129/88 NIBP BP-Mean 101 Respiration from ECG 16 SpO2 100 I&O: 03/05/20 03/06/20 03/07/20 06:59 06:59 06:59 Intake Total 27 Output Total 90 Balance -63 Result Diagrams: 03/06/20 12:08 03/06/20 12:08 Additional Labs: Accuchecks 03/06/20 03/06/20 03/06/20 07:55 05:54 05:24 POC Glucose 77 92 96 03/06/20 03/06/20 03/06/20 05:03 03:24 02:27 POC Glucose 124 H 105 H 148 H 03/06/20 01:27 POC Glucose 158 H Radiology Reviewed by me: Yes (CT-A chest shows esophageal thickening, 5th and 6th rib fx, other changes) EKG Reviewed by me: Yes (tele - sinus 90's, no alarms) Hospitalist ROS - Medication Medications: Active Medications Generic Name Dose Route Start Last Admin Trade Name Freq PRN Reason Stop Dose Admin Enoxaparin Sodium 40 mg 03/06/20 09:00 03/06/20 09:19 Enoxaparin Sodium 40 Mg/0.4 Ml Syringe SC 40 mg 0900 LILLI Administration Piperacillin Sod/Tazobactam 100 mls @ 200 mls/hr 03/06/20 06:00 03/06/20 05:35 Sod 4.5 gm/ Sodium Chloride IVPB 100 mls Q8HR LILLI Administration Sodium Chloride 1,000 mls @ 100 mls/hr 03/06/20 04:45 03/06/20 05:36 Normal Saline 0.9% IV 1,000 mls .Q10H LILLI Administration Vancomycin HCl 1 gm/ Device 200 mls @ 200 mls/hr 03/06/20 08:00 03/06/20 07:29 IVPB 200 mls [id number] LILLI Administration Lorazepam 2 mg 03/06/20 05:30 03/06/20 07:29 Lorazepam 2 Mg/Ml Vial SLOW IVP 04/05/20 05:30 2 mg Q1H PRN Administration Breakthrough agitation - Exam General Appearance: NAD Heart: RRR, no murmur Respiratory: no wheezes, no rales, no ronchi Gastrointestinal: soft, non-tender, non-distended, normal bowel sounds Extremities: no cyanosis, no clubbing Extremities - other findings: edema of right knee with mild erythema around sutures Neurological - other findings: unable to assess Musculoskeletal - other findings: unable to assess Psychiatric - other findings: unable to assess Hosp A/P (1) Altered mental status Code(s): R41.82 - ALTERED MENTAL STATUS, UNSPECIFIED Status: Acute Qualifiers: Altered mental status type: unspecified Qualified Code(s): R41.82 - Altered mental status, unspecified (2) Hypoglycemia Code(s): E16.2 - HYPOGLYCEMIA, UNSPECIFIED Status: Acute (3) Severe sepsis Code(s): A41.9 - SEPSIS, UNSPECIFIED ORGANISM; R65.20 - SEVERE SEPSIS WITHOUT SEPTIC SHOCK Status: Acute (4) Diabetes mellitus, insulin dependent (IDDM), controlled Code(s): [id number] - Status: Chronic (5) Substance abuse Code(s): F19.10 - OTHER PSYCHOACTIVE SUBSTANCE ABUSE, UNCOMPLICATED Status: Chronic (6) Esophageal thickening Code(s): K22.8 - OTHER SPECIFIED DISEASES OF ESOPHAGUS Status: Acute (7) Anemia Code(s): D64.9 - ANEMIA, UNSPECIFIED Status: Chronic Qualifiers: Anemia type: unspecified type Qualified Code(s): D64.9 - Anemia, unspecified - Plan AMS - currently intubated sedated - defer to Pulmonology on timing of extubation Severe sepsis - Vanc and Zosyn - Ortho consult - follow cx Hypoglycemia on D10 - monitor blood sugars and hypoglycemia protocol Type 1 DM - initiate long-acting insulin when off D10 and blood sugars are elevated Esophageal thickening of uncertain etiology - BID IV PPI polysubstance abuse - defer discussion to when pt is extubated Acute on chronic anemia - monitor for any bleeding dvt prophy - lovenox gi prophy - BID PPI - see above code status full reviewed plan of care with CONI.
[2020-03-06] MEDS: Pantoprazole 40 MG VIAL IVP SCH ×2 (09:56→19:34)
--- NOTE | 2020-03-06 10:04 | RAD ---
Exam: Chest one view HISTORY:Endotracheal tube check. Comparison: 03/05/2020 11:16 PM FINDINGS: Lines and tubes: Endotracheal tube at the level of clavicles. Nasogastric tube terminates in the left upper quadrant. Cardiac silhouette: Normal Aorta: Unremarkable Pulmonary vessels: Normal Costophrenic angles: Clear LUNGS: Stable scattered interstitial prominence Pneumothorax: None Osseous abnormalities: None IMPRESSION: 1. Lines and tubes as above. No significant interval change.
[2020-03-06] MEDS ORDERED: Dextrose 10% in Water 1,000 ML IV SCH (10:15)
[2020-03-06 12:17] LABS: #Eosinphils 0.1 thou/uL (0.0-0.7); #Lymphocytes 1.9 thou/uL (1.20-3.40); #Monocytes 0.8 thou/uL (0.11-0.59); #Neutrophils 5.5 thou/uL (1.40-6.50); %Basophils 0.6 % (0.0-1.0); %Eosinophils 0.9 % (0.0-10.0); %Lymphocytes 22.5 % (21.0-51.0); %Monocytes 9.2 % (0.0-10.0); %Neutrophils 66.8 % (42.0-75.0); Mean Corpuscular HGB CONC 31.2 g/dL (32.0-36.0); Mean Corpuscular Volume 89.9 fL (78.0-98.0); Mean Platelet Volume 6.6 fL (7.4-10.4); Platelet Count 486 thou/uL (130-400); RBC Distribution Width 14.4 % (11.5-14.5); Red Blood Cell (RBC) Count 2.85 mill/uL (4.70-6.10); White Blood Cell (WBC) Count 8.2 thou/uL (4.8-10.8)
[2020-03-06 12:40] LABS: Anion Gap 10 mmol/L (10-20); BUN (Urea Nitrogen) 9 mg/dL (8.9-20.6); Calc. Creatinine Clearance 120 mL/min (70-130); Calcium 7.7 mg/dL (7.8-10.44); Carbon Dioxide 28 mmol/L (22-29); Chloride 108 mmol/L (98-107); Glucose 71 mg/dL (70-105); Potassium 3.6 mmol/L (3.5-5.1); Sodium 142 mmol/L (136-145)
--- NOTE | 2020-03-06 16:38 | CON ---
DATE OF CONSULTATION: 03/06/2020 CHIEF COMPLAINT: Right knee infection. HISTORY OF PRESENT ILLNESS: Mr. Vazquez is a 44-year-old male who is a severe drug addict. I treated him several weeks ago with a right knee infection and right knee abscess. He underwent irrigation and debridement of the knee at that time. He was set up with home antibiotics. However, it seems that he did not follow up on getting these. He presented to the emergency room last night and was transferred to our emergency room for change in mental status. He was found to have severe hypoglycemia in the 20s. He was intubated at an outside facility prior to transfer. He has remained intubated and is currently in the CCU. He has been stable. He has not been hypotensive. I was called to reassess his knee given that he had a recent surgery and infection. The patient is back on antibiotics currently. He has not been changing a dressing or receiving wound care since his discharge. PAST MEDICAL HISTORY: Chronic drug use, diabetes, and septic arthritis. PAST SURGICAL HISTORY: Incision and debridement of the right knee. FAMILY MEDICAL HISTORY: Noncontributory. SOCIAL HISTORY: The patient uses multiple different drugs. It appears to be daily. He uses methamphetamine. PHYSICAL EXAMINATION: VITAL SIGNS: Temperature is 97.3, oxygen saturation 100% on ventilator, and respiratory rate of 13. GENERAL: He is lying supine. He is intubated and sedated. HEENT: Normocephalic, atraumatic. RESPIRATORY: Breathing comfortably with equal chest rise. ABDOMEN: Appears to be soft and nondistended. MUSCULOSKELETAL: The patient's right knee has healed anterior medial wound with sutures in place. The lateral abscess area is open with some purulent exudate, which is minimal. There is no significant surrounding erythema. No increased warmth of the knee. Gentle motion passively is intact. He does have an effusion. IMPRESSION: Recent septic knee with large abscess over the lateral knee, status post irrigation and debridement in a drug addict. PLAN: The patient will need continued intravenous antibiotics. He will have his sutures removed. I will ask the Wound Care Team to evaluate the patient and either pack or place a wound VAC over his lateral wound. I am hopeful we can get him in better shape before he was discharged so that he can follow appropriate wound care instructions and continue antibiotics. For now, I do not think he needs a repeat irrigation and debridement in the operating room unless his clinical course worsens and he becomes hypotensive or has signs of sepsis. We will continue to follow. Job ID: [id number]
[2020-03-06] MEDS: Propofol 1,000 MG/100 ML VIAL IV PRN ×2 (17:12→21:03)
[2020-03-06] MEDS: cefTRIAXone\\ROCEPHIN 2 GM in Sodium Chloride 0.9% 100 ML IVPB SCH (17:50)
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
[2020-03-06] MEDS ORDERED: FLU VACC QS2020-21(6MOS UP)/PF 60 MCG/0.5 ML SYRINGE IM ONE (21:00)
[2020-03-07] MEDS: Propofol 1,000 MG/100 ML VIAL IV PRN ×3 (02:54→18:46)
[2020-03-07 04:20] LABS: #Basophils 0.1 thou/uL (0.0-0.2); #Eosinphils 0.1 thou/uL (0.0-0.7); #Lymphocytes 1.7 thou/uL (1.20-3.40); #Monocytes 0.7 thou/uL (0.11-0.59); #Neutrophils 4.4 thou/uL (1.40-6.50); %Basophils 0.8 % (0.0-1.0); %Lymphocytes 23.8 % (21.0-51.0); %Monocytes 10.4 % (0.0-10.0); %Neutrophils 62.9 % (42.0-75.0); Hemoglobin 9.7 g/dL (14.0-18.0); Mean Corpuscular HGB CONC 30.1 g/dL (32.0-36.0); Mean Corpuscular Hemoglobin 27.2 pg (27.0-31.0); Mean Corpuscular Volume 90.3 fL (78.0-98.0); Mean Platelet Volume 6.9 fL (7.4-10.4); Platelet Count 458 thou/uL (130-400); RBC Distribution Width 14.5 % (11.5-14.5); Red Blood Cell (RBC) Count 3.57 mill/uL (4.70-6.10); White Blood Cell (WBC) Count 6.9 thou/uL (4.8-10.8)
[2020-03-07 04:37] LABS: Anion Gap 15 mmol/L (10-20); BUN (Urea Nitrogen) 6 mg/dL (8.9-20.6); Calc. Creatinine Clearance 124 mL/min (70-130); Calcium 7.8 mg/dL (7.8-10.44); Carbon Dioxide 22 mmol/L (22-29); Chloride 110 mmol/L (98-107); Glucose 167 mg/dL (70-105); Potassium 3.9 mmol/L (3.5-5.1); Sodium 143 mmol/L (136-145)
[2020-03-07] MEDS: Enoxaparin Sodium 40 MG/0.4 ML SYRINGE SC SCH (07:07)
[2020-03-07] MEDS: Lorazepam 2 MG/ML VIAL SLOW IVP PRN ×4 (07:07→14:30)
[2020-03-07] MEDS: Pantoprazole 40 MG VIAL IVP SCH (07:07)
[2020-03-07 07:35] LABS: Actual Bicarbonate (HCO3a) 25.7 mEq/L (22-28); Base Excess (BEa) 1.6 mEq/L (-2.0 to +3.0); CO2 Tension 38.6 mmHg (35.0-45.0); Calcium, Ionized (arterial) 1.15 mmol/L (1.12-1.30); Carboxyhemoglobin (COHb) 0.3 gm% (0.0-3.0); Hemoglobin (Hb) 9.9 g/dL (14.0-18.0); O2 Tension (PaO2), arterial 150.9 mmHg (80.0-100.0); Potassium - ABG Lab 3.55 mmol/L (3.70-5.30); pH, Arterial 7.44 (7.35-7.45)
[2020-03-07] MEDS: Sodium Chloride 0.9% 1,000 ML IV SCH ×2 (09:42→16:18)
[2020-03-07 11:58] LABS: Puncture Site LRA
--- NOTE | 2020-03-07 12:12 | PRG ---
DATE OF SERVICE: 03/07/2020 SUBJECTIVE: Blade Vazquez is agitated when he is awake. He is no longer hypoglycemic. OBJECTIVE: VITAL SIGNS: Blood pressure 149/91, heart rate is 95, respiratory rates in the teens. LUNGS: Clear. HEART: Regular rhythm. ABDOMEN: Soft. LABORATORY DATA: White count 6.9, hemoglobin 9.7, and platelets 458. Electrolytes are unchanged. Family apparently called and said he would likely to leave against medical advice once he was extubated. We will start him on some Haldol to see if this controls his agitation. Hopefully, we can extubate him in the morning. We will see whether he will stay or not. I think it is unlikely that he will participate in the intramuscular injections and I would not be surprised at some point he comes in septic and loses a leg. Critical care time 30 min. Job ID: [id number] MTDD
[2020-03-07] MEDS: Haloperidol Lactate 5 MG/ML VIAL IM SCH ×3 (12:33→22:22)
[2020-03-07] MEDS: HumaLOG 300 UNITS/3 ML VIAL SC PRN (15:29)
[2020-03-07] MEDS: cefTRIAXone\\ROCEPHIN 2 GM in Sodium Chloride 0.9% 100 ML IVPB SCH (16:13)
[2020-03-08] MEDS: HumaLOG 300 UNITS/3 ML VIAL SC PRN ×3 (00:46→17:07)
[2020-03-08] MEDS: Haloperidol Lactate 5 MG/ML VIAL IM SCH ×4 (01:22→12:21)
[2020-03-08] MEDS: Propofol 1,000 MG/100 ML VIAL IV PRN ×2 (02:48→08:45)
[2020-03-08] MEDS: Pantoprazole 40 MG VIAL IVP SCH ×3 (02:53→21:37)
[2020-03-08] MEDS: Lorazepam 2 MG/ML VIAL SLOW IVP PRN ×2 (03:24→07:42)
[2020-03-08] MEDS: Sodium Chloride 0.9% 1,000 ML IV SCH ×2 (03:35→13:19)
[2020-03-08 07:19] LABS: Actual Bicarbonate (HCO3a) 25.5 mEq/L (22-28); Base Excess (BEa) 1.2 mEq/L (-2.0 to +3.0); CO2 Tension 39.3 mmHg (35.0-45.0); Calcium, Ionized (arterial) 1.18 mmol/L (1.12-1.30); Carboxyhemoglobin (COHb) 0.3 gm% (0.0-3.0); Hemoglobin (Hb) 9.6 g/dL (14.0-18.0); O2 Tension (PaO2), arterial 159.7 mmHg (80.0-100.0); Potassium - ABG Lab 3.44 mmol/L (3.70-5.30); pH, Arterial 7.43 (7.35-7.45)
[2020-03-08 07:29] LABS: ALV-art Gradient 76.375 mmHg (0-20); Puncture Site LRA
[2020-03-08] MEDS: Enoxaparin Sodium 40 MG/0.4 ML SYRINGE SC SCH (07:41)
[2020-03-08] MEDS: Haloperidol Lactate 5 MG/ML VIAL SLOW IVP SCH ×3 (13:21→21:37)
[2020-03-08] MEDS: cefTRIAXone\\ROCEPHIN 2 GM in Sodium Chloride 0.9% 100 ML IVPB SCH (17:04)
--- NOTE | 2020-03-08 17:13 | PRG ---
DATE OF SERVICE: 03/08/2020 SUBJECTIVE: Mr. Vazquez met criteria for extubation this morning. This was done successfully. He is encephalopathic. Heart rate is 105, blood pressure 157/86, respiratory rate is 18. Precedex drip has been started. We will continue with Haldol, although, as he was combative in nature, we will give it IV instead of IM. OBJECTIVE: LUNGS: Clear. HEART: Regular rhythm. ABDOMEN: Soft. EXTREMITIES: Without asymmetry or edema. LABORATORY DATA: White count is 6.9, hemoglobin 9.7, platelets 458,000, as yesterday's. No lab today. IMPRESSION: 1. Septic knee. 2. Medical noncompliance. 3. Methamphetamine use. 4. Severe hypoglycemia leading to his intubation. I suspect his encephalopathy is a downstream effect of that. He will remain in the critical care unit for now. Critical care time 30 min. Job ID: [id number] MTDD
--- NOTE | 2020-03-08 18:36 | PDOC.HOSPP ---
- Subjective Encounter Date: 03/08/20 Encounter Time: 13:00 Subjective: Patient seen in follow-up for sepsis. He is intubated, could not complete review of systems. - Objective Vital Signs & Weight: Vital Signs (12 hours) Temp Pulse Resp BP Pulse Ox 03/08/20 15:00 98.8 F 03/08/20 14:23 98 03/08/20 10:12 91 131/75 03/08/20 08:56 99 F 03/08/20 08:00 99 F 03/08/20 07:29 16 100 03/08/20 06:50 84 134/82 Weight Admit Weight 138 lb 14.24 oz Weight 138 lb 14.259 oz Most Recent Monitor Data Heart Rate from ECG 94 NIBP 142/77 NIBP BP-Mean 98 Respiration from ECG 15 SpO2 99 I&O: 03/07/20 03/08/20 03/09/20 06:59 06:59 06:59 Intake Total 3477.7 1520 1336 Output Total 5370 1900 650 Balance -1892.3 -380 686 Result Diagrams: 03/07/20 03:42 03/07/20 03:43 Additional Labs: Accuchecks 03/08/20 03/08/20 05:31 00:40 POC Glucose 264 H 275 H Labs and MAR reviewed by me Hospitalist ROS - Review of Systems ROS unobtainable: due to endotracheal tube - Medication Medications: Active Medications Generic Name Dose Route Start Last Admin Trade Name Freq PRN Reason Stop Dose Admin Enoxaparin Sodium 40 mg 03/06/20 09:00 03/08/20 07:41 Enoxaparin Sodium 40 Mg/0.4 Ml Syringe SC 40 mg 0900 LILLI Administration Haloperidol Lactate 5 mg 03/08/20 13:00 03/08/20 17:04 Haloperidol Lactate 5 Mg/Ml Vial SLOW IVP 5 mg Q4HR LILLI Administration Ceftriaxone Sodium 2 gm/ 100 mls @ 200 mls/hr 03/06/20 18:00 03/08/20 17:04 Sodium Chloride IVPB 100 mls 1800 LILLI Administration Dexmedetomidine HCl 400 mcg/ 100 mls @ 0 mls/hr 03/08/20 13:00 03/08/20 17:48 Sodium Chloride IVPB 100 mls INF LILLI Administration Protocol Per Protocol Sodium Chloride 1,000 mls @ 60 mls/hr 03/08/20 12:54 03/08/20 13:19 Normal Saline 0.9% IV 1,000 mls .[id number] LILLI Administration Insulin Human Lispro 0 units 03/06/20 04:32 03/08/20 17:07 Humalog 300 Units/3 Ml Vial SC 5 units .MILD SLIDING SCALE PRN Administration Mild Correctional Scale Lorazepam 2 mg 03/06/20 05:30 03/08/20 07:42 Lorazepam 2 Mg/Ml Vial SLOW IVP 04/05/20 05:30 2 mg Q1H PRN Administration Breakthrough agitation Pantoprazole Sodium 40 mg 03/06/20 09:00 03/08/20 07:42 Pantoprazole 40 Mg Vial IVP 40 mg Q12HR LILLI Administration Propofol 1,000 mg 03/06/20 05:30 03/08/20 08:45 Propofol 1,000 Mg/100 Ml Vial IV 04/05/20 05:30 1,000 mg INF PRN Administration TO ACHIEVE GOAL RASS Protocol Sodium Chloride 10 ml 03/06/20 21:00 03/08/20 07:42 Flush - Normal Saline 10 Ml Syringe IVF 10 ml Q12HR LILLI Administration - Exam General - other findings: Intubated ENT: moist mucosa Neck: supple Heart: RRR Respiratory: CTAB Gastrointestinal: soft, non-tender Skin: no rashes Psychiatric - other findings: Unable to assess Hosp A/P - Plan Hosp A/P (1) sepsis Status: Acute (2) acute metabolic encephalopathy Status: Acute (3) Diabetes mellitus, insulin dependent (IDDM) Code(s): [id number] - Status: Chronic (4) Substance abuse Code(s): F19.10 - OTHER PSYCHOACTIVE SUBSTANCE ABUSE, UNCOMPLICATED Status: Chronic (5) Esophageal thickening Code(s): K22.8 - OTHER SPECIFIED DISEASES OF ESOPHAGUS Status: Acute (6) Anemia Code(s): D64.9 - ANEMIA, UNSPECIFIED Status: Chronic Qualifiers: Anemia type: unspecified type Qualified Code(s): D64.9 - Anemia, unspecified (7) Hypoglycemia Code(s): E16.2 - HYPOGLYCEMIA, UNSPECIFIED Status: Resolved - Plan Continue IV vancomycin and Zosyn, source unclear but could be septic arthritis. Patient is currently intubated and mechanically ventilated, on Precedex. Hypoglycemia has resolved. Continue Accu-Cheks and insulin sliding scale. Continue twice daily PPI.
[2020-03-09] MEDS: HumaLOG 300 UNITS/3 ML VIAL SC PRN ×4 (00:29→17:17)
[2020-03-09] MEDS: Haloperidol Lactate 5 MG/ML VIAL SLOW IVP SCH ×6 (00:42→20:30)
[2020-03-09 04:14] LABS: #Lymphocytes 1.3 thou/uL (1.20-3.40); #Monocytes 0.5 thou/uL (0.11-0.59); #Neutrophils 3.3 thou/uL (1.40-6.50); %Basophils 0.2 % (0.0-1.0); %Eosinophils 0.5 % (0.0-10.0); %Lymphocytes 24.6 % (21.0-51.0); %Neutrophils 65.7 % (42.0-75.0); Hemoglobin 9.9 g/dL (14.0-18.0); Mean Corpuscular HGB CONC 31.6 g/dL (32.0-36.0); Mean Corpuscular Hemoglobin 27.9 pg (27.0-31.0); Mean Corpuscular Volume 88.3 fL (78.0-98.0); Mean Platelet Volume 6.9 fL (7.4-10.4); Platelet Count 425 thou/uL (130-400); RBC Distribution Width 13.7 % (11.5-14.5); Red Blood Cell (RBC) Count 3.56 mill/uL (4.70-6.10); White Blood Cell (WBC) Count 5.1 thou/uL (4.8-10.8)
[2020-03-09 04:33] LABS: Anion Gap 18 mmol/L (10-20); BUN (Urea Nitrogen) 13 mg/dL (8.9-20.6); Calc. Creatinine Clearance 112 mL/min (70-130); Carbon Dioxide 21 mmol/L (22-29); Chloride 109 mmol/L (98-107); Glucose 279 mg/dL (70-105); Potassium 3.8 mmol/L (3.5-5.1); Sodium 144 mmol/L (136-145)
[2020-03-09] MEDS: Sodium Chloride 0.9% 1,000 ML IV SCH (05:44)
[2020-03-09] MEDS: Enoxaparin Sodium 40 MG/0.4 ML SYRINGE SC SCH (07:41)
[2020-03-09] MEDS: Pantoprazole 40 MG VIAL IVP SCH ×2 (07:42→20:31)
--- NOTE | 2020-03-09 10:25 | PDOC.HOSPP ---
- Subjective Encounter Date: 03/07/20 Encounter Time: 11:30 Subjective: pt intubated - Objective Vital Signs & Weight: Vital Signs (12 hours) Temp Pulse Ox 03/09/20 07:33 99 03/09/20 05:00 97.6 F 03/09/20 01:00 97.6 F Weight Admit Weight 138 lb 14.24 oz Weight 138 lb 14.259 oz Most Recent Monitor Data Heart Rate from ECG 90 NIBP 153/89 NIBP BP-Mean 110 Respiration from ECG 11 SpO2 100 I&O: 03/08/20 03/09/20 03/10/20 06:59 06:59 06:59 Intake Total 1520 1336 240 Output Total 1900 2890 160 Balance -380 -1554 80 Result Diagrams: 03/09/20 03:41 03/09/20 03:41 Additional Labs: Accuchecks 03/09/20 03/09/20 03/08/20 04:48 00:25 17:06 POC Glucose 280 H 291 H 336 H 03/08/20 10:28 POC Glucose 231 H Hospitalist ROS - Review of Systems Other: intubated - Medication Medications: Active Medications Generic Name Dose Route Start Last Admin Trade Name Freq PRN Reason Stop Dose Admin Enoxaparin Sodium 40 mg 03/06/20 09:00 03/09/20 07:41 Enoxaparin Sodium 40 Mg/0.4 Ml Syringe SC 40 mg 0900 LILLI Administration Haloperidol Lactate 5 mg 03/08/20 13:00 03/09/20 07:42 Haloperidol Lactate 5 Mg/Ml Vial SLOW IVP 5 mg Q4HR LILLI Administration Ceftriaxone Sodium 2 gm/ 100 mls @ 200 mls/hr 03/06/20 18:00 03/08/20 17:04 Sodium Chloride IVPB 100 mls 1800 LILLI Administration Dexmedetomidine HCl 400 mcg/ 100 mls @ 0 mls/hr 03/08/20 13:00 03/08/20 22:36 Sodium Chloride IVPB 100 mls INF LILLI Administration Protocol Per Protocol Insulin Human Lispro 0 units 03/06/20 04:32 03/09/20 05:36 Humalog 300 Units/3 Ml Vial SC 4 units .MILD SLIDING SCALE PRN Administration Mild Correctional Scale Lorazepam 2 mg 03/06/20 05:30 03/08/20 07:42 Lorazepam 2 Mg/Ml Vial SLOW IVP 04/05/20 05:30 2 mg Q1H PRN Administration Breakthrough agitation Pantoprazole Sodium 40 mg 03/06/20 09:00 03/09/20 07:42 Pantoprazole 40 Mg Vial IVP 40 mg Q12HR LILLI Administration Propofol 1,000 mg 03/06/20 05:30 03/08/20 08:45 Propofol 1,000 Mg/100 Ml Vial IV 04/05/20 05:30 1,000 mg INF PRN Administration TO ACHIEVE GOAL RASS Protocol Sodium Chloride 10 ml 03/06/20 21:00 03/09/20 10:20 Flush - Normal Saline 10 Ml Syringe IVF Not Given Q12HR LILLI - Exam Heart: negative: RRR, no murmur, no gallops, no rubs, normal peripheral pulses, irregular, diminshed peripheral pulses, murmur present, II/IV, III/IV Respiratory: negative: CTAB, no wheezes, no rales, no ronchi, normal chest expansion, no tachypnea, normal percussion, rales, rhonchi, tachypneic, wheezes Gastrointestinal: negative: soft, non-tender, non-distended, normal bowel sounds, no palpable masses, no hepatomegaly, no splenomegaly, no bruit, no guarding, no rigidity, tender to palpation, distended, diminished bowl sounds, voluntary guarding Hosp A/P (1) Acute hypoxemic respiratory failure Code(s): J96.01 - ACUTE RESPIRATORY FAILURE WITH HYPOXIA Status: Acute (2) Diabetes Code(s): E11.9 - TYPE 2 DIABETES MELLITUS WITHOUT COMPLICATIONS Status: Acute (3) Septic joint Status: Acute (4) Anemia Code(s): D64.9 - ANEMIA, UNSPECIFIED Status: Chronic Qualifiers: Anemia type: unspecified type Qualified Code(s): D64.9 - Anemia, unspecified (5) Diabetes mellitus, insulin dependent (IDDM), controlled Code(s): [id number] - Status: Chronic (6) Substance abuse Code(s): F19.10 - OTHER PSYCHOACTIVE SUBSTANCE ABUSE, UNCOMPLICATED Status: Chronic (7) Sepsis Code(s): A41.9 - SEPSIS, UNSPECIFIED ORGANISM Status: Acute - Plan will continue current abx. pt intubated. will continue to check accuchecks. Per h&p pt was not following up for his abx treatment and no dressing changes either and was found to be hypoglycemic and was intubated. 03/07 pt intubated. will continue current abx.
--- NOTE | 2020-03-09 14:34 | PRG ---
DATE OF SERVICE: 03/09/2020 SUBJECTIVE: Blade Vazquez is much more cooperative and calm today. OBJECTIVE: VITAL SIGNS: Heart rate is 90, blood pressure 153/89, respiratory rates in the teens, oximetry is 100%. LUNGS: Clear. HEART: Regular rhythm. ABDOMEN: Soft. LABORATORY DATA: White count 5.1, hemoglobin 9.9, platelets 425. Sodium 144, potassium 3.8, chloride 109, bicarb 21, BUN 13, creatinine 0.74, glucose 279. IMPRESSION: 1. Septic knee. He says he was getting his IM injections prior to this admission. 2. Diabetes. 3. Status post intubation for hypoglycemia. 4. Methamphetamine use. He could be transferred out of Critical Care in my opinion and probably once he is ambulatory, go home. Critical care time 30 min. Job ID: [id number] MTDD
--- NOTE | 2020-03-09 15:06 | PDOC.HOSPP ---
- Subjective Encounter Date: 03/09/20 Encounter Time: 11:30 Subjective: pt exutbated is doing well - Objective Vital Signs & Weight: Vital Signs (12 hours) Temp Pulse Ox 03/09/20 07:33 99 03/09/20 05:00 97.6 F Weight Admit Weight 138 lb 14.24 oz Weight 138 lb 14.259 oz Most Recent Monitor Data Heart Rate from ECG 90 NIBP 153/89 NIBP BP-Mean 110 Respiration from ECG 11 SpO2 100 I&O: 03/08/20 03/09/20 03/10/20 06:59 06:59 06:59 Intake Total 1520 1336 240 Output Total 1900 2890 500 Balance -958 -1554 -789 Result Diagrams: 03/09/20 03:41 03/09/20 03:41 Additional Labs: Accuchecks 03/09/20 03/09/20 03/09/20 11:04 04:48 00:25 POC Glucose 339 H 280 H 291 H 03/08/20 03/08/20 17:06 10:28 POC Glucose 336 H 231 H Hospitalist ROS - Review of Systems Cardiovascular: denies: chest pain, palpitations, orthopnea, paroxysmal noc. dyspnea, edema, light headedness, other Gastrointestinal: denies: nausea, vomiting, abdominal pain, diarrhea, constipation, melena, hematochezia, other Genitourinary: denies: dysuria, frequency, incontinence, hematuria, retention, other - Medication Medications: Active Medications Generic Name Dose Route Start Last Admin Trade Name Freq PRN Reason Stop Dose Admin Enoxaparin Sodium 40 mg 03/06/20 09:00 03/09/20 07:41 Enoxaparin Sodium 40 Mg/0.4 Ml Syringe SC 40 mg 0900 LILLI Administration Haloperidol Lactate 5 mg 03/08/20 13:00 03/09/20 12:21 Haloperidol Lactate 5 Mg/Ml Vial SLOW IVP 5 mg Q4HR LILLI Administration Ceftriaxone Sodium 2 gm/ 100 mls @ 200 mls/hr 03/06/20 18:00 03/08/20 17:04 Sodium Chloride IVPB 100 mls 1800 LILLI Administration Dexmedetomidine HCl 400 mcg/ 100 mls @ 0 mls/hr 03/08/20 13:00 03/08/20 22:36 Sodium Chloride IVPB 100 mls INF LILLI Administration Protocol Per Protocol Insulin Human Lispro 0 units 03/06/20 04:32 03/09/20 11:11 Humalog 300 Units/3 Ml Vial SC 5 units .MILD SLIDING SCALE PRN Administration Mild Correctional Scale Lorazepam 2 mg 03/06/20 05:30 03/08/20 07:42 Lorazepam 2 Mg/Ml Vial SLOW IVP 04/05/20 05:30 2 mg Q1H PRN Administration Breakthrough agitation Pantoprazole Sodium 40 mg 03/06/20 09:00 03/09/20 07:42 Pantoprazole 40 Mg Vial IVP 40 mg Q12HR LILLI Administration Propofol 1,000 mg 03/06/20 05:30 03/08/20 08:45 Propofol 1,000 Mg/100 Ml Vial IV 04/05/20 05:30 1,000 mg INF PRN Administration TO ACHIEVE GOAL RASS Protocol Sodium Chloride 10 ml 03/06/20 21:00 03/09/20 10:20 Flush - Normal Saline 10 Ml Syringe IVF Not Given Q12HR LILLI - Exam Neck: negative: supple, symmetric, no JVD, no thyromegaly, no lymphadenopathy, no carotid bruit, JVD Heart: negative: RRR, no murmur, no gallops, no rubs, normal peripheral pulses, irregular, diminshed peripheral pulses, murmur present, II/IV, III/IV Respiratory: negative: CTAB, no wheezes, no rales, no ronchi, normal chest expansion, no tachypnea, normal percussion, rales, rhonchi, tachypneic, wheezes Gastrointestinal: negative: soft, non-tender, non-distended, normal bowel sounds, no palpable masses, no hepatomegaly, no splenomegaly, no bruit, no guarding, no rigidity, tender to palpation, distended, diminished bowl sounds, voluntary guarding Hosp A/P (1) Acute hypoxemic respiratory failure Code(s): J96.01 - ACUTE RESPIRATORY FAILURE WITH HYPOXIA Status: Acute (2) Diabetes Code(s): E11.9 - TYPE 2 DIABETES MELLITUS WITHOUT COMPLICATIONS Status: Acute (3) Septic joint Status: Acute (4) Anemia Code(s): D64.9 - ANEMIA, UNSPECIFIED Status: Chronic Qualifiers: Anemia type: unspecified type Qualified Code(s): D64.9 - Anemia, unspecified (5) Diabetes mellitus, insulin dependent (IDDM), controlled Code(s): [id number] - Status: Chronic (6) Substance abuse Code(s): F19.10 - OTHER PSYCHOACTIVE SUBSTANCE ABUSE, UNCOMPLICATED Status: Chronic (7) Sepsis Code(s): A41.9 - SEPSIS, UNSPECIFIED ORGANISM Status: Acute - Plan will continue current abx. pt intubated. will continue to check accuchecks. Per h&p pt was not following up for his abx treatment and no dressing changes either and was found to be hypoglycemic and was intubated. 03/09 pt extubated. will continue current abx. pt will be transitioned to medical floor. will resume his insulin.
[2020-03-09] MEDS: cefTRIAXone\\ROCEPHIN 2 GM in Sodium Chloride 0.9% 100 ML IVPB SCH (15:54)
[2020-03-09] MEDS: Gabapentin 300 MG CAP PO SCH (16:31)
[2020-03-09] MEDS: HumuLIN 70/30 (300 UNITS/3 ML VIAL) SC SCH (21:13)
[2020-03-10] MEDS: Gabapentin 300 MG CAP PO SCH ×4 (00:38→16:59)
[2020-03-10] MEDS: Haloperidol Lactate 5 MG/ML VIAL SLOW IVP SCH ×6 (00:39→21:03)
[2020-03-10 04:17] LABS: #Eosinphils 0.1 thou/uL (0.0-0.7); #Lymphocytes 1.7 thou/uL (1.20-3.40); #Monocytes 0.4 thou/uL (0.11-0.59); #Neutrophils 3.8 thou/uL (1.40-6.50); %Basophils 0.3 % (0.0-1.0); %Eosinophils 0.9 % (0.0-10.0); %Lymphocytes 28.9 % (21.0-51.0); %Monocytes 6.8 % (0.0-10.0); %Neutrophils 63.1 % (42.0-75.0); Hemoglobin 8.9 g/dL (14.0-18.0); Mean Corpuscular HGB CONC 30.9 g/dL (32.0-36.0); Mean Corpuscular Hemoglobin 27.1 pg (27.0-31.0); Mean Corpuscular Volume 87.7 fL (78.0-98.0); Mean Platelet Volume 7.1 fL (7.4-10.4); Platelet Count 482 thou/uL (130-400); RBC Distribution Width 13.8 % (11.5-14.5); Red Blood Cell (RBC) Count 3.29 mill/uL (4.70-6.10)
[2020-03-10 04:34] LABS: Anion Gap 13 mmol/L (10-20); BUN (Urea Nitrogen) 15 mg/dL (8.9-20.6); Calc. Creatinine Clearance 89 mL/min (70-130); Calcium 7.9 mg/dL (7.8-10.44); Carbon Dioxide 29 mmol/L (22-29); Chloride 103 mmol/L (98-107); Glucose 451 mg/dL (70-105); Potassium 3.8 mmol/L (3.5-5.1); Sodium 141 mmol/L (136-145)
[2020-03-10] MEDS: Pantoprazole 40 MG VIAL IVP SCH ×2 (09:40→21:03)
[2020-03-10] MEDS: Lisinopril 20 MG TAB PO SCH (09:40)
[2020-03-10] MEDS: Enoxaparin Sodium 40 MG/0.4 ML SYRINGE SC SCH (09:40)
[2020-03-10] MEDS ORDERED: HumaLOG 300 UNITS/3 ML VIAL SC SCH (12:15)
[2020-03-10] MEDS: Acetaminophen 325 MG TAB PO PRN (13:07)
[2020-03-10] MEDS: HumuLIN 70/30 (300 UNITS/3 ML VIAL) SC SCH (13:07)
[2020-03-10] MEDS: cefTRIAXone\\ROCEPHIN 2 GM in Sodium Chloride 0.9% 100 ML IVPB SCH (16:59)
--- NOTE | 2020-03-10 17:18 | PDOC.HOSPP ---
- Subjective Encounter Date: 03/10/20 Encounter Time: 12:00 Subjective: Patient seen for follow-up regarding sepsis. Complains of pain in his right knee. - Objective Vital Signs & Weight: Vital Signs (12 hours) BP Pulse Ox 03/10/20 09:40 123/86 03/10/20 07:46 95 03/10/20 06:34 96 Weight Admit Weight 138 lb 14.24 oz Weight 138 lb 14.259 oz Most Recent Monitor Data Heart Rate from ECG 90 NIBP 123/86 NIBP BP-Mean 98 Respiration from ECG 11 SpO2 100 I&O: 03/09/20 03/10/20 03/11/20 06:59 06:59 06:59 Intake Total 1336 2112 Output Total 2890 4150 800 Balance -1554 -2038 -800 Result Diagrams: 03/10/20 03:24 03/10/20 03:24 Additional Labs: Accuchecks 03/09/20 03/09/20 20:48 17:16 POC Glucose 474 H 420 H Labs and MAR reviewed by me EKG Reviewed by me: Yes (Telemetry shows normal sinus rhythm) Hospitalist ROS - Review of Systems Constitutional: denies: fever, chills, sweats, weakness, malaise Cardiovascular: denies: chest pain, palpitations, orthopnea, paroxysmal noc. dyspnea, edema, light headedness Musculoskeletal: reports: other (Right knee pain) - Medication Medications: Active Medications Generic Name Dose Route Start Last Admin Trade Name Freq PRN Reason Stop Dose Admin Acetaminophen 650 mg 03/10/20 12:06 03/10/20 13:07 Acetaminophen 325 Mg Tab PO 650 mg Q6H PRN Administration Headache/Fever or Pain Enoxaparin Sodium 40 mg 03/06/20 09:00 03/10/20 09:40 Enoxaparin Sodium 40 Mg/0.4 Ml Syringe SC 40 mg 0900 LILLI Administration Gabapentin 300 mg 03/09/20 18:00 03/10/20 16:59 Gabapentin 300 Mg Cap PO 300 mg Q6HR LILLI Administration Haloperidol Lactate 5 mg 03/08/20 13:00 03/10/20 16:59 Haloperidol Lactate 5 Mg/Ml Vial SLOW IVP 5 mg Q4HR LILLI Administration Ceftriaxone Sodium 2 gm/ 100 mls @ 200 mls/hr 03/06/20 18:00 03/10/20 16:59 Sodium Chloride IVPB 100 mls 1800 LILLI Administration Dexmedetomidine HCl 400 mcg/ 100 mls @ 0 mls/hr 03/08/20 13:00 03/08/20 22:36 Sodium Chloride IVPB 100 mls INF LILLI Administration Protocol Per Protocol Lisinopril 20 mg 03/10/20 09:00 03/10/20 09:40 Lisinopril 20 Mg Tab PO 20 mg DAILY LILLI Administration Lorazepam 2 mg 03/06/20 05:30 03/08/20 07:42 Lorazepam 2 Mg/Ml Vial SLOW IVP 04/05/20 05:30 2 mg Q1H PRN Administration Breakthrough agitation Pantoprazole Sodium 40 mg 03/06/20 09:00 03/10/20 09:40 Pantoprazole 40 Mg Vial IVP 40 mg Q12HR LILLI Administration Propofol 1,000 mg 03/06/20 05:30 03/08/20 08:45 Propofol 1,000 Mg/100 Ml Vial IV 04/05/20 05:30 1,000 mg INF PRN Administration TO ACHIEVE GOAL RASS Protocol Sodium Chloride 10 ml 03/06/20 21:00 03/10/20 09:40 Flush - Normal Saline 10 Ml Syringe IVF 10 ml Q12HR LILLI Administration - Exam General Appearance: awake alert ENT: moist mucosa Neck: supple Heart: RRR Respiratory: CTAB Gastrointestinal: soft, non-tender Skin: no rashes Psychiatric: normal affect Hosp A/P - Plan Hosp A/P (1) sepsis Status: Acute (2) acute metabolic encephalopathy Status: Acute (3) Diabetes mellitus, insulin dependent (IDDM) Code(s): [id number] - Status: Chronic (4) Substance abuse Code(s): F19.10 - OTHER PSYCHOACTIVE SUBSTANCE ABUSE, UNCOMPLICATED Status: Chronic (5) Esophageal thickening Code(s): K22.8 - OTHER SPECIFIED DISEASES OF ESOPHAGUS Status: Acute (6) Anemia Code(s): D64.9 - ANEMIA, UNSPECIFIED Status: Chronic Qualifiers: Anemia type: unspecified type Qualified Code(s): D64.9 - Anemia, unspecified (7) Hypoglycemia Code(s): E16.2 - HYPOGLYCEMIA, UNSPECIFIED Status: Resolved - Plan Continue IV vancomycin and Zosyn, for probable septic arthritis. Patient has been extubated. Blood sugars are high, change to moderate insulin sliding scale, discontinue 70/30 insulin and start Lantus insulin 20 units twice daily. Continue PPI.
[2020-03-10] MEDS: HumaLOG 300 UNITS/3 ML VIAL SC PRN ×2 (18:31→23:06)
[2020-03-10] MEDS: Insulin Glargine 20 UNITS in Pre-Filled Syringe 1 EACH SC SCH (23:06)
[2020-03-11] MEDS: Gabapentin 300 MG CAP PO SCH ×4 (01:11→18:22)
[2020-03-11] MEDS: Haloperidol Lactate 5 MG/ML VIAL SLOW IVP SCH ×3 (01:11→10:27)
[2020-03-11 01:17] LABS: Glucose 641 mg/dL (70-105)
[2020-03-11] MEDS: HumaLOG 300 UNITS/3 ML VIAL SC PRN ×3 (01:23→12:59)
[2020-03-11 04:51] LABS: #Eosinphils 0.1 thou/uL (0.0-0.7); #Lymphocytes 1.7 thou/uL (1.20-3.40); #Monocytes 0.4 thou/uL (0.11-0.59); #Neutrophils 3.6 thou/uL (1.40-6.50); %Basophils 0.5 % (0.0-1.0); %Eosinophils 0.9 % (0.0-10.0); %Lymphocytes 29.9 % (21.0-51.0); %Monocytes 7.2 % (0.0-10.0); %Neutrophils 61.4 % (42.0-75.0); Hemoglobin 9.3 g/dL (14.0-18.0); Mean Corpuscular HGB CONC 31.9 g/dL (32.0-36.0); Mean Corpuscular Hemoglobin 27.6 pg (27.0-31.0); Mean Corpuscular Volume 86.5 fL (78.0-98.0); Mean Platelet Volume 7.1 fL (7.4-10.4); Platelet Count 410 thou/uL (130-400); RBC Distribution Width 13.6 % (11.5-14.5); Red Blood Cell (RBC) Count 3.37 mill/uL (4.70-6.10); White Blood Cell (WBC) Count 5.8 thou/uL (4.8-10.8)
[2020-03-11 05:18] LABS: Anion Gap 12 mmol/L (10-20); BUN (Urea Nitrogen) 19 mg/dL (8.9-20.6); Calc. Creatinine Clearance 86 mL/min (70-130); Calcium 7.8 mg/dL (7.8-10.44); Carbon Dioxide 29 mmol/L (22-29); Chloride 101 mmol/L (98-107); Glucose 441 mg/dL (70-105); Potassium 3.6 mmol/L (3.5-5.1); Sodium 138 mmol/L (136-145)
[2020-03-11] MEDS: Insulin Glargine 20 UNITS in Pre-Filled Syringe 1 EACH SC SCH (10:26)
[2020-03-11] MEDS: Enoxaparin Sodium 40 MG/0.4 ML SYRINGE SC SCH (10:27)
[2020-03-11] MEDS: Pantoprazole 40 MG VIAL IVP SCH ×2 (10:27→21:46)
[2020-03-11] MEDS: Lisinopril 20 MG TAB PO SCH (10:27)
[2020-03-11] MEDS: Acetaminophen 325 MG TAB PO PRN (12:58)
--- NOTE | 2020-03-11 15:33 | PDOC.HOSPP ---
- Subjective Encounter Date: 03/11/20 Encounter Time: 12:30 Subjective: Patient seen for follow-up regarding sepsis. Denies any chest pain or shortness of breath. Reports pain in his knee. - Objective Vital Signs & Weight: Vital Signs (12 hours) Temp Pulse Resp BP BP BP Pulse Ox 03/11/20 11:40 98.8 F 85 16 148/87 H 98 03/11/20 10:27 123/86 03/11/20 07:07 98.4 F 85 16 153/87 H 99 03/11/20 04:33 97 03/11/20 03:40 99.0 F 84 16 145/89 H 97 Weight Admit Weight 138 lb 14.24 oz Weight 136 lb 4.8 oz Most Recent Monitor Data Heart Rate from ECG 90 NIBP 123/86 NIBP BP-Mean 98 Respiration from ECG 11 SpO2 100 I&O: 03/10/20 03/11/20 03/12/20 06:59 06:59 06:59 Intake Total 2112 960 Output Total 4150 800 Balance -2038 160 Result Diagrams: 03/11/20 04:32 03/11/20 04:32 Additional Labs: Accuchecks 03/11/20 03/11/20 12:35 05:58 POC Glucose 353 H 366 H I reviewed patient's labs and MAR EKG Reviewed by me: Yes (Normal sinus rhythm on telemetry) Hospitalist ROS - Review of Systems Cardiovascular: denies: chest pain, palpitations, orthopnea, paroxysmal noc. dyspnea, edema, light headedness Gastrointestinal: denies: nausea, vomiting, abdominal pain, diarrhea, constipa tion, melena, hematochezia Musculoskeletal: reports: other (Knee pain) - Medication Medications: Active Medications Generic Name Dose Route Start Last Admin Trade Name Freq PRN Reason Stop Dose Admin Acetaminophen 650 mg 03/10/20 12:06 03/11/20 12:58 Acetaminophen 325 Mg Tab PO 650 mg Q6H PRN Administration Headache/Fever or Pain Enoxaparin Sodium 40 mg 03/06/20 09:00 03/11/20 10:27 Enoxaparin Sodium 40 Mg/0.4 Ml Syringe SC 40 mg 0900 LILLI Administration Gabapentin 300 mg 03/09/20 18:00 03/11/20 10:27 Gabapentin 300 Mg Cap PO 300 mg Q6HR LILLI Administration Ceftriaxone Sodium 2 gm/ 100 mls @ 200 mls/hr 03/06/20 18:00 03/10/20 16:59 Sodium Chloride IVPB 100 mls 1800 LILLI Administration Dexmedetomidine HCl 400 mcg/ 100 mls @ 0 mls/hr 03/08/20 13:00 03/08/20 22:36 Sodium Chloride IVPB 100 mls INF LILLI Administration Protocol Per Protocol Insulin Glargine 20 units/ 0.2 mls @ 0 mls/hr 03/10/20 21:00 03/11/20 10:26 Miscellaneous Medication SC 0.2 mls BID LILLI Administration Insulin Human Lispro 0 units 03/10/20 17:14 03/11/20 12:59 Humalog 300 Units/3 Ml Vial SC 10 unit .MODERATE SLIDING SC PRN Administration Moderate Correctional Scale Insulin Human Lispro 0 units 03/10/20 21:12 03/11/20 01:23 Humalog 300 Units/3 Ml Vial SC 5 unit .BEDTIME SLIDING SC PRN Administration Bedtime Correctional Scale Lisinopril 20 mg 03/10/20 09:00 03/11/20 10:27 Lisinopril 20 Mg Tab PO 20 mg DAILY LILLI Administration Lorazepam 2 mg 03/06/20 05:30 03/08/20 07:42 Lorazepam 2 Mg/Ml Vial SLOW IVP 04/05/20 05:30 2 mg Q1H PRN Administration Breakthrough agitation Pantoprazole Sodium 40 mg 03/06/20 09:00 03/11/20 10:27 Pantoprazole 40 Mg Vial IVP 40 mg Q12HR LILLI Administration Propofol 1,000 mg 03/06/20 05:30 03/08/20 08:45 Propofol 1,000 Mg/100 Ml Vial IV 04/05/20 05:30 1,000 mg INF PRN Administration TO ACHIEVE GOAL RASS Protocol Sodium Chloride 10 ml 03/06/20 21:00 03/11/20 10:27 Flush - Normal Saline 10 Ml Syringe IVF 10 ml Q12HR LILLI Administration - Exam General Appearance: NAD Eye: anicteric sclera ENT: normocephalic atraumatic Neck: supple Heart: RRR Respiratory: CTAB Gastrointestinal: soft, non-tender Skin: no rashes Psychiatric: normal affect, normal behavior Hosp A/P - Plan Hosp A/P (1) sepsis Status: Acute (2) acute metabolic encephalopathy Status: Acute (3) Diabetes mellitus, insulin dependent (IDDM) Code(s): [id number] - Status: Chronic (4) Substance abuse Code(s): F19.10 - OTHER PSYCHOACTIVE SUBSTANCE ABUSE, UNCOMPLICATED Status: Chronic (5) Esophageal thickening Code(s): K22.8 - OTHER SPECIFIED DISEASES OF ESOPHAGUS Status: Acute (6) Anemia Code(s): D64.9 - ANEMIA, UNSPECIFIED Status: Chronic Qualifiers: Anemia type: unspecified type Qualified Code(s): D64.9 - Anemia, unspecified (7) Hypoglycemia Code(s): E16.2 - HYPOGLYCEMIA, UNSPECIFIED Status: Resolved - Plan Patient is on IV vancomycin and IV Zosyn, continue. Continue IV vancomycin and Zosyn, for probable septic arthritis. Patient has been extubated. Blood sugars are still high, continue moderate insulin sliding scale and change Lantus insulin 25 units twice daily. Continue PPI.
[2020-03-11] MEDS: cefTRIAXone\\ROCEPHIN 2 GM in Sodium Chloride 0.9% 100 ML IVPB SCH (18:23)
[2020-03-11] MEDS: Insulin Glargine 25 UNITS in Pre-Filled Syringe SC SCH (21:46)
[2020-03-12] MEDS: Gabapentin 300 MG CAP PO SCH ×4 (00:35→17:22)
[2020-03-12] MEDS: HumaLOG 300 UNITS/3 ML VIAL SC PRN ×4 (00:42→20:45)
[2020-03-12 04:54] LABS: #Eosinphils 0.1 thou/uL (0.0-0.7); #Lymphocytes 1.7 thou/uL (1.20-3.40); #Monocytes 0.3 thou/uL (0.11-0.59); #Neutrophils 2.9 thou/uL (1.40-6.50); %Basophils 0.8 % (0.0-1.0); %Eosinophils 1.7 % (0.0-10.0); %Monocytes 6.8 % (0.0-10.0); %Neutrophils 57.7 % (42.0-75.0); Mean Corpuscular Hemoglobin 27.9 pg (27.0-31.0); Mean Corpuscular Volume 87.1 fL (78.0-98.0); Mean Platelet Volume 7.3 fL (7.4-10.4); Platelet Count 328 thou/uL (130-400); RBC Distribution Width 13.8 % (11.5-14.5); Red Blood Cell (RBC) Count 3.23 mill/uL (4.70-6.10)
[2020-03-12 05:18] LABS: Anion Gap 13 mmol/L (10-20); BUN (Urea Nitrogen) 11 mg/dL (8.9-20.6); Calc. Creatinine Clearance 115 mL/min (70-130); Calcium 7.8 mg/dL (7.8-10.44); Carbon Dioxide 29 mmol/L (22-29); Chloride 102 mmol/L (98-107); Glucose 215 mg/dL (70-105); Potassium 3.1 mmol/L (3.5-5.1); Sodium 141 mmol/L (136-145)
[2020-03-12] MEDS: Lisinopril 20 MG TAB PO SCH (08:24)
[2020-03-12] MEDS: Enoxaparin Sodium 40 MG/0.4 ML SYRINGE SC SCH (08:25)
[2020-03-12] MEDS: Acetaminophen 325 MG TAB PO PRN (08:25)
[2020-03-12] MEDS: Pantoprazole 40 MG VIAL IVP SCH ×2 (08:26→20:48)
[2020-03-12] MEDS: Insulin Glargine 25 UNITS in Pre-Filled Syringe SC SCH ×2 (08:26→20:46)
[2020-03-12] MEDS ORDERED: Electrolyte Replacement Protocol 1 EACH FS SCH (09:00)
[2020-03-12] MEDS ORDERED: Potassium Chloride 20 MEQ TAB PO SCH (09:00)
[2020-03-12] MEDS: Lorazepam 2 MG/ML VIAL SLOW IVP PRN (12:44)
--- NOTE | 2020-03-12 14:16 | EKG ---
Test Reason : Blood Pressure : / mmHG Vent. Rate : 103 BPM Atrial Rate : 103 BPM P-R Int : 146 ms QRS Dur : 084 ms QT Int : 380 ms P-R-T Axes : 085 075 070 degrees QTc Int : 497 ms Sinus tachycardia Otherwise normal ECG Confirmed by BRIANNE MOTA ([id number]), editorial project manager JOHN HURLEY ([id number]) on 03/12/2020 2:15:53 PM Referred By: Confirmed By:BRIANNE MOTA
--- NOTE | 2020-03-12 14:49 | PDOC.HOSPP ---
- Subjective Encounter Date: 03/12/20 Encounter Time: 12:30 Subjective: Patient up in bed very emotional states that he wants to go home however he does not know his son's number. - Objective Vital Signs & Weight: Vital Signs (12 hours) Temp Pulse Resp BP BP Pulse Ox 03/12/20 08:24 123/86 03/12/20 07:06 97.7 F 84 16 142/83 H 98 03/12/20 04:00 98.2 F 86 16 135/71 96 Weight Admit Weight 138 lb 14.24 oz Weight 136 lb 4.8 oz Most Recent Monitor Data Heart Rate from ECG 90 NIBP 123/86 NIBP BP-Mean 98 Respiration from ECG 11 SpO2 100 I&O: 03/11/20 03/12/20 03/13/20 06:59 06:59 06:59 Intake Total 960 520 720 Output Total 800 Balance 160 520 720 Result Diagrams: 03/12/20 04:06 03/12/20 04:06 Additional Labs: Accuchecks 03/12/20 03/12/20 03/12/20 12:59 05:40 03:18 POC Glucose 266 H 215 H 194 H Hospitalist ROS - Review of Systems Cardiovascular: denies: chest pain, palpitations, orthopnea, paroxysmal noc. dyspnea, edema, light headedness, other Gastrointestinal: denies: nausea, vomiting, abdominal pain, diarrhea, constipation, melena, hematochezia, other Genitourinary: denies: dysuria, frequency, incontinence, hematuria, retention, other - Medication Medications: Active Medications Generic Name Dose Route Start Last Admin Trade Name Adolfo PRN Reason Stop Dose Admin Acetaminophen 650 mg 03/10/20 12:06 03/12/20 08:25 Acetaminophen 325 Mg Tab PO 650 mg Q6H PRN Administration Headache/Fever or Pain Enoxaparin Sodium 40 mg 03/06/20 09:00 03/12/20 08:25 Enoxaparin Sodium 40 Mg/0.4 Ml Syringe SC 40 mg 0900 LILLI Administration Gabapentin 300 mg 03/09/20 18:00 03/12/20 12:43 Gabapentin 300 Mg Cap PO 300 mg Q6HR LILLI Administration Ceftriaxone Sodium 2 gm/ 100 mls @ 200 mls/hr 03/06/20 18:00 03/11/20 18:23 Sodium Chloride IVPB 100 mls 1800 LILLI Administration Dexmedetomidine HCl 400 mcg/ 100 mls @ 0 mls/hr 03/08/20 13:00 03/08/20 22:36 Sodium Chloride IVPB 100 mls INF LILLI Administration Protocol Per Protocol Insulin Glargine 25 units/ 0.25 mls @ 0 mls/hr 03/11/20 21:00 03/12/20 08:26 Miscellaneous Medication SC 0.25 mls BID LILLI Administration Insulin Human Lispro 0 units 03/10/20 17:14 03/12/20 05:44 Humalog 300 Units/3 Ml Vial SC 4 unit .MODERATE SLIDING SC PRN Administration Moderate Correctional Scale Insulin Human Lispro 0 units 03/10/20 21:12 03/12/20 00:42 Humalog 300 Units/3 Ml Vial SC 5 unit .BEDTIME SLIDING SC PRN Administration Bedtime Correctional Scale Lisinopril 20 mg 03/10/20 09:00 03/12/20 08:24 Lisinopril 20 Mg Tab PO 20 mg DAILY LILLI Administration Lorazepam 2 mg 03/06/20 05:30 03/12/20 12:44 Lorazepam 2 Mg/Ml Vial SLOW IVP 04/05/20 05:30 2 mg Q1H PRN Administration Breakthrough agitation Pantoprazole Sodium 40 mg 03/06/20 09:00 03/12/20 08:26 Pantoprazole 40 Mg Vial IVP 40 mg Q12HR LILLI Administration Propofol 1,000 mg 03/06/20 05:30 03/08/20 08:45 Propofol 1,000 Mg/100 Ml Vial IV 04/05/20 05:30 1,000 mg INF PRN Administration TO ACHIEVE GOAL RASS Protocol Sodium Chloride 10 ml 03/06/20 21:00 03/12/20 08:27 Flush - Normal Saline 10 Ml Syringe IVF 10 ml Q12HR LILLI Administration - Exam Neck: negative: supple, symmetric, no JVD, no thyromegaly, no lymphadenopathy, no carotid bruit, JVD Heart: negative: RRR, no murmur, no gallops, no rubs, normal peripheral pulses, irregular, diminshed peripheral pulses, murmur present, II/IV, III/IV Respiratory: negative: CTAB, no wheezes, no rales, no ronchi, normal chest expansion, no tachypnea, normal percussion, rales, rhonchi, tachypneic, wheezes Hosp A/P (1) Acute hypoxemic respiratory failure Code(s): J96.01 - ACUTE RESPIRATORY FAILURE WITH HYPOXIA Status: Acute (2) Diabetes Code(s): E11.9 - TYPE 2 DIABETES MELLITUS WITHOUT COMPLICATIONS Status: Acute (3) Septic joint Status: Acute (4) Anemia Code(s): D64.9 - ANEMIA, UNSPECIFIED Status: Chronic Qualifiers: Anemia type: unspecified type Qualified Code(s): D64.9 - Anemia, unspecified (5) Diabetes mellitus, insulin dependent (IDDM), controlled Code(s): [id number] - Status: Chronic (6) Substance abuse Code(s): F19.10 - OTHER PSYCHOACTIVE SUBSTANCE ABUSE, UNCOMPLICATED Status: Chronic (7) Sepsis Code(s): A41.9 - SEPSIS, UNSPECIFIED ORGANISM Status: Acute - Plan will continue current abx. pt intubated. will continue to check accuchecks. Per h&p pt was not following up for his abx treatment and no dressing changes either and was found to be hypoglycemic and was intubated. 03/09 pt extubated. will continue current abx. pt will be transitioned to medical floor. will resume his insulin. 03/12 we will continue ceftriaxone for now. Patient apparently does not have a home to go to we will try and see if we can get the son's information. wild life manager has been consulted.
[2020-03-12] MEDS: cefTRIAXone\\ROCEPHIN 2 GM in Sodium Chloride 0.9% 100 ML IVPB SCH (17:21)
[2020-03-13] MEDS: Gabapentin 300 MG CAP PO SCH ×5 (00:23→23:58)
[2020-03-13] MEDS: HumaLOG 300 UNITS/3 ML VIAL SC PRN ×4 (00:24→19:12)
[2020-03-13 04:22] LABS: #Eosinphils 0.1 thou/uL (0.0-0.7); #Monocytes 0.4 thou/uL (0.11-0.59); #Neutrophils 3.6 thou/uL (1.40-6.50); %Basophils 0.4 % (0.0-1.0); %Eosinophils 2.1 % (0.0-10.0); %Lymphocytes 32.4 % (21.0-51.0); %Monocytes 7.2 % (0.0-10.0); %Neutrophils 57.9 % (42.0-75.0); Hemoglobin 9.2 g/dL (14.0-18.0); Mean Corpuscular Hemoglobin 27.8 pg (27.0-31.0); Mean Corpuscular Volume 86.8 fL (78.0-98.0); Mean Platelet Volume 7.4 fL (7.4-10.4); Platelet Count 313 thou/uL (130-400); RBC Distribution Width 13.7 % (11.5-14.5); Red Blood Cell (RBC) Count 3.32 mill/uL (4.70-6.10); White Blood Cell (WBC) Count 6.1 thou/uL (4.8-10.8)
[2020-03-13 04:41] LABS: Anion Gap 13 mmol/L (10-20); BUN (Urea Nitrogen) 11 mg/dL (8.9-20.6); Calc. Creatinine Clearance 110 mL/min (70-130); Calcium 7.9 mg/dL (7.8-10.44); Carbon Dioxide 27 mmol/L (22-29); Chloride 100 mmol/L (98-107); Glucose 201 mg/dL (70-105); Potassium 3.8 mmol/L (3.5-5.1); Sodium 136 mmol/L (136-145)
[2020-03-13] MEDS: Insulin Glargine 25 UNITS in Pre-Filled Syringe SC SCH ×2 (09:40→21:00)
[2020-03-13] MEDS: Enoxaparin Sodium 40 MG/0.4 ML SYRINGE SC SCH (09:40)
[2020-03-13] MEDS: Pantoprazole 40 MG VIAL IVP SCH ×2 (09:41→21:00)
[2020-03-13] MEDS: Lisinopril 20 MG TAB PO SCH (09:41)
--- NOTE | 2020-03-13 15:37 | PDOC.HOSPP ---
- Subjective Encounter Date: 03/13/20 Encounter Time: 10:30 Subjective: pt up in bed no complains - Objective Vital Signs & Weight: Vital Signs (12 hours) Temp Pulse Resp BP BP Pulse Ox 03/13/20 09:41 123/86 03/13/20 08:18 97.9 F 95 16 135/80 99 Weight Admit Weight 138 lb 14.24 oz Weight 136 lb 4.8 oz Most Recent Monitor Data Heart Rate from ECG 90 NIBP 123/86 NIBP BP-Mean 98 Respiration from ECG 11 SpO2 100 I&O: 03/12/20 03/13/20 03/14/20 06:59 06:59 06:59 Intake Total 520 1420 Balance 520 1420 Result Diagrams: 03/13/20 03:43 03/13/20 03:43 Additional Labs: Accuchecks 03/13/20 03/13/20 03/12/20 12:00 06:04 23:34 POC Glucose 277 H 268 H 310 H 03/12/20 03/12/20 03/12/20 21:36 18:34 16:53 POC Glucose 258 H 227 H 312 H 03/12/20 15:36 POC Glucose 291 H Hospitalist ROS - Review of Systems Cardiovascular: denies: chest pain, palpitations, orthopnea, paroxysmal noc. dyspnea, edema, light headedness, other Gastrointestinal: denies: nausea, vomiting, abdominal pain, diarrhea, constipation, melena, hematochezia, other Genitourinary: denies: dysuria, frequency, incontinence, hematuria, retention, other - Medication Medications: Active Medications Generic Name Dose Route Start Last Admin Trade Name Adolfo PRN Reason Stop Dose Admin Acetaminophen 650 mg 03/10/20 12:06 03/12/20 08:25 Acetaminophen 325 Mg Tab PO 650 mg Q6H PRN Administration Headache/Fever or Pain Enoxaparin Sodium 40 mg 03/06/20 09:00 03/13/20 09:40 Enoxaparin Sodium 40 Mg/0.4 Ml Syringe SC 40 mg 0900 LILLI Administration Gabapentin 300 mg 03/09/20 18:00 03/13/20 13:10 Gabapentin 300 Mg Cap PO 300 mg Q6HR LILLI Administration Ceftriaxone Sodium 2 gm/ 100 mls @ 200 mls/hr 03/06/20 18:00 03/12/20 17:21 Sodium Chloride IVPB 100 mls 1800 LILLI Administration Insulin Glargine 25 units/ 0.25 mls @ 0 mls/hr 03/11/20 21:00 03/13/20 09:40 Miscellaneous Medication SC 0.25 mls BID LILLI Administration Insulin Human Lispro 0 units 03/10/20 17:14 03/13/20 13:07 Humalog 300 Units/3 Ml Vial SC 6 unit .MODERATE SLIDING SC PRN Administration Moderate Correctional Scale Insulin Human Lispro 0 units 03/10/20 21:12 03/13/20 00:24 Humalog 300 Units/3 Ml Vial SC 4 unit .BEDTIME SLIDING SC PRN Administration Bedtime Correctional Scale Lisinopril 20 mg 03/10/20 09:00 03/13/20 09:41 Lisinopril 20 Mg Tab PO 20 mg DAILY LILLI Administration Lorazepam 2 mg 03/06/20 05:30 03/12/20 12:44 Lorazepam 2 Mg/Ml Vial SLOW IVP 04/05/20 05:30 2 mg Q1H PRN Administration Breakthrough agitation Pantoprazole Sodium 40 mg 03/06/20 09:00 03/13/20 09:41 Pantoprazole 40 Mg Vial IVP 40 mg Q12HR LILLI Administration Propofol 1,000 mg 03/06/20 05:30 03/08/20 08:45 Propofol 1,000 Mg/100 Ml Vial IV 04/05/20 05:30 1,000 mg INF PRN Administration TO ACHIEVE GOAL RASS Protocol Sodium Chloride 10 ml 03/06/20 21:00 03/13/20 09:42 Flush - Normal Saline 10 Ml Syringe IVF 10 ml Q12HR LILLI Administration - Exam Neck: negative: supple, symmetric, no JVD, no thyromegaly, no lymphadenopathy, no carotid bruit, JVD Heart: negative: RRR, no murmur, no gallops, no rubs, normal peripheral pulses, irregular, diminshed peripheral pulses, murmur present, II/IV, III/IV Respiratory: negative: CTAB, no wheezes, no rales, no ronchi, normal chest expansion, no tachypnea, normal percussion, rales, rhonchi, tachypneic, wheezes Hosp A/P (1) Acute hypoxemic respiratory failure Code(s): J96.01 - ACUTE RESPIRATORY FAILURE WITH HYPOXIA Status: Acute (2) Diabetes Code(s): E11.9 - TYPE 2 DIABETES MELLITUS WITHOUT COMPLICATIONS Status: Acute (3) Septic joint Status: Acute (4) Anemia Code(s): D64.9 - ANEMIA, UNSPECIFIED Status: Chronic Qualifiers: Anemia type: unspecified type Qualified Code(s): D64.9 - Anemia, unspecified (5) Diabetes mellitus, insulin dependent (IDDM), controlled Code(s): [id number] - Status: Chronic (6) Substance abuse Code(s): F19.10 - OTHER PSYCHOACTIVE SUBSTANCE ABUSE, UNCOMPLICATED Status: Chronic (7) Sepsis Code(s): A41.9 - SEPSIS, UNSPECIFIED ORGANISM Status: Acute - Plan will continue current abx. pt intubated. will continue to check accuchecks. Per h&p pt was not following up for his abx treatment and no dressing changes either and was found to be hypoglycemic and was intubated. 03/09 pt extubated. will continue current abx. pt will be transitioned to medical floor. will resume his insulin. 03/12 we will continue ceftriaxone for now. Patient apparently does not have a home to go to we will try and see if we can get the son's information. it risk and assurance senior manager has been consulted. 03/13 will continue abx for now. once his abx is set up pt can be discharged. Family contacted and will educate them about checking pt's blood sugar.
[2020-03-13] MEDS: cefTRIAXone\\ROCEPHIN 2 GM in Sodium Chloride 0.9% 100 ML IVPB SCH (19:08)
[2020-03-14] MEDS: HumaLOG 300 UNITS/3 ML VIAL SC PRN ×4 (00:13→17:26)
[2020-03-14] MEDS: Gabapentin 300 MG CAP PO SCH ×3 (05:40→17:27)
[2020-03-14] MEDS: Lisinopril 20 MG TAB PO SCH (09:58)
[2020-03-14] MEDS: Enoxaparin Sodium 40 MG/0.4 ML SYRINGE SC SCH (09:59)
[2020-03-14] MEDS: Insulin Glargine 25 UNITS in Pre-Filled Syringe SC SCH ×2 (09:59→21:43)
[2020-03-14] MEDS: Pantoprazole 40 MG VIAL IVP SCH ×2 (10:00→21:42)
[2020-03-14 15:10] VITALS: BMI 20.1
[2020-03-14] MEDS: cefTRIAXone\\ROCEPHIN 2 GM in Sodium Chloride 0.9% 100 ML IVPB SCH (17:27)
[2020-03-14] MEDS: Acetaminophen 325 MG TAB PO PRN (21:42)
[2020-03-15] MEDS: Gabapentin 300 MG CAP PO SCH ×4 (00:16→17:50)
[2020-03-15] MEDS: HumaLOG 300 UNITS/3 ML VIAL SC PRN ×2 (05:08→16:53)
[2020-03-15 08:08] VITALS: BP 128/76; TEMP 99.1
[2020-03-15] MEDS: Insulin Glargine 25 UNITS in Pre-Filled Syringe SC SCH (09:43)
[2020-03-15] MEDS: Enoxaparin Sodium 40 MG/0.4 ML SYRINGE SC SCH (09:43)
[2020-03-15] MEDS: Pantoprazole 40 MG VIAL IVP SCH (09:44)
[2020-03-15] MEDS: Lisinopril 20 MG TAB PO SCH (09:47)
[2020-03-15] MEDS: cefTRIAXone\\ROCEPHIN 2 GM in Sodium Chloride 0.9% 100 ML IVPB SCH (13:56)
--- NOTE | 2020-03-15 16:19 | PDOC.HOSPP ---
- Subjective Encounter Date: 03/15/20 Encounter Time: 10:00 Subjective: Patient up in bed no complaints. Patient is very emotional hoping that his family will come pick him up - Objective Vital Signs & Weight: Vital Signs (12 hours) Temp Pulse Resp BP BP Pulse Ox 03/15/20 09:47 128/76 03/15/20 07:54 99.1 F 96 18 128/76 99 Weight Admit Weight 138 lb 14.24 oz Weight 136 lb 4.8 oz Most Recent Monitor Data Heart Rate from ECG 90 NIBP 123/86 NIBP BP-Mean 98 Respiration from ECG 11 SpO2 100 I&O: 03/14/20 03/15/20 03/16/20 06:59 06:59 06:59 Intake Total 960 1570 Balance 960 1570 Result Diagrams: 03/13/20 03:43 03/13/20 03:43 Additional Labs: Accuchecks 03/15/20 03/15/20 03/14/20 11:05 05:08 21:41 POC Glucose 128 H 389 H 60 L 03/14/20 17:25 POC Glucose 297 H Hospitalist ROS - Review of Systems Respiratory: denies: cough, dry, shortness of breath, hemoptysis, SOB with excertion, pleuritic pain, sputum, wheezing, other Cardiovascular: denies: chest pain, palpitations, orthopnea, paroxysmal noc. dyspnea, edema, light headedness, other Gastrointestinal: denies: nausea, vomiting, abdominal pain, diarrhea, constipation, melena, hematochezia, other - Medication Medications: Active Medications Generic Name Dose Route Start Last Admin Trade Name Adolfo PRN Reason Stop Dose Admin Acetaminophen 650 mg 03/10/20 12:06 03/14/20 21:42 Acetaminophen 325 Mg Tab PO 650 mg Q6H PRN Administration Headache/Fever or Pain Enoxaparin Sodium 40 mg 03/06/20 09:00 03/15/20 09:43 Enoxaparin Sodium 40 Mg/0.4 Ml Syringe SC 40 mg 0900 LILLI Administration Gabapentin 300 mg 03/09/20 18:00 03/15/20 11:49 Gabapentin 300 Mg Cap PO 300 mg Q6HR LILLI Administration Ceftriaxone Sodium 2 gm/ 100 mls @ 200 mls/hr 03/06/20 18:00 03/15/20 13:56 Sodium Chloride IVPB 100 mls 1800 LILLI Administration Insulin Glargine 25 units/ 0.25 mls @ 0 mls/hr 03/11/20 21:00 03/15/20 09:43 Miscellaneous Medication SC 0.25 mls BID LILLI Administration Insulin Human Lispro 0 units 03/10/20 17:14 03/15/20 05:08 Humalog 300 Units/3 Ml Vial SC 10 unit .MODERATE SLIDING SC PRN Administration Moderate Correctional Scale Insulin Human Lispro 0 units 03/10/20 21:12 03/14/20 00:13 Humalog 300 Units/3 Ml Vial SC 2 unit .BEDTIME SLIDING SC PRN Administration Bedtime Correctional Scale Lisinopril 20 mg 03/10/20 09:00 03/15/20 09:47 Lisinopril 20 Mg Tab PO 20 mg DAILY LILLI Administration Lorazepam 2 mg 03/06/20 05:30 03/12/20 12:44 Lorazepam 2 Mg/Ml Vial SLOW IVP 04/05/20 05:30 2 mg Q1H PRN Administration Breakthrough agitation Pantoprazole Sodium 40 mg 03/06/20 09:00 03/15/20 09:44 Pantoprazole 40 Mg Vial IVP 40 mg Q12HR LILLI Administration Propofol 1,000 mg 03/06/20 05:30 03/08/20 08:45 Propofol 1,000 Mg/100 Ml Vial IV 04/05/20 05:30 1,000 mg INF PRN Administration TO ACHIEVE GOAL RASS Protocol Sodium Chloride 10 ml 03/06/20 21:00 03/15/20 11:50 Flush - Normal Saline 10 Ml Syringe IVF 10 ml Q12HR LILLI Administration - Exam Neck: negative: supple, symmetric, no JVD, no thyromegaly, no lymphadenopathy, no carotid bruit, JVD Heart: negative: RRR, no murmur, no gallops, no rubs, normal peripheral pulses, irregular, diminshed peripheral pulses, murmur present, II/IV, III/IV Respiratory: negative: CTAB, no wheezes, no rales, no ronchi, normal chest expansion, no tachypnea, normal percussion, rales, rhonchi, tachypneic, wheezes Hosp A/P (1) Acute hypoxemic respiratory failure Code(s): J96.01 - ACUTE RESPIRATORY FAILURE WITH HYPOXIA Status: Acute (2) Diabetes Code(s): E11.9 - TYPE 2 DIABETES MELLITUS WITHOUT COMPLICATIONS Status: Acute (3) Septic joint Status: Acute (4) Anemia Code(s): D64.9 - ANEMIA, UNSPECIFIED Status: Chronic Qualifiers: Anemia type: unspecified type Qualified Code(s): D64.9 - Anemia, unspecified (5) Diabetes mellitus, insulin dependent (IDDM), controlled Code(s): [id number] - Status: Chronic (6) Substance abuse Code(s): F19.10 - OTHER PSYCHOACTIVE SUBSTANCE ABUSE, UNCOMPLICATED Status: Chronic (7) Sepsis Code(s): A41.9 - SEPSIS, UNSPECIFIED ORGANISM Status: Acute - Plan will continue current abx. pt intubated. will continue to check accuchecks. Per h&p pt was not following up for his abx treatment and no dressing changes either and was found to be hypoglycemic and was intubated. 03/09 pt extubated. will continue current abx. pt will be transitioned to medical floor. will resume his insulin. 03/12 we will continue ceftriaxone for now. Patient apparently does not have a home to go to we will try and see if we can get the son's information. optical store manager has been consulted. 03/13 will continue abx for now. once his abx is set up pt can be discharged. Family contacted and will educate them about checking pt's blood sugar. 03/14 patient up in bed no complaints we will continue antibiotics. Waiting for case management for antibiotics set up and also medications since patient is uninsured 03/15 patient up in bed no complaints. Again waiting for case management for antibiotics set up.
--- NOTE | 2020-03-15 16:20 | PDOC.HOSPP ---
- Subjective Encounter Date: 03/14/20 Encounter Time: 10:30 Subjective: Patient up in bed no complaints. - Objective Vital Signs & Weight: Vital Signs (12 hours) Temp Pulse Resp BP BP Pulse Ox 03/15/20 09:47 128/76 03/15/20 07:54 99.1 F 96 18 128/76 99 Weight Admit Weight 138 lb 14.24 oz Weight 136 lb 4.8 oz Most Recent Monitor Data Heart Rate from ECG 90 NIBP 123/86 NIBP BP-Mean 98 Respiration from ECG 11 SpO2 100 I&O: 03/14/20 03/15/20 03/16/20 06:59 06:59 06:59 Intake Total 960 1570 Balance 960 1570 Result Diagrams: 03/13/20 03:43 03/13/20 03:43 Additional Labs: Accuchecks 03/15/20 03/15/20 03/14/20 11:05 05:08 21:41 POC Glucose 128 H 389 H 60 L 03/14/20 17:25 POC Glucose 297 H Hospitalist ROS - Review of Systems Cardiovascular: denies: chest pain, palpitations, orthopnea, paroxysmal noc. dyspnea, edema, light headedness, other Gastrointestinal: denies: nausea, vomiting, abdominal pain, diarrhea, constipation, melena, hematochezia, other Genitourinary: denies: dysuria, frequency, incontinence, hematuria, retention, other - Medication Medications: Active Medications Generic Name Dose Route Start Last Admin Trade Name Freq PRN Reason Stop Dose Admin Acetaminophen 650 mg 03/10/20 12:06 03/14/20 21:42 Acetaminophen 325 Mg Tab PO 650 mg Q6H PRN Administration Headache/Fever or Pain Enoxaparin Sodium 40 mg 03/06/20 09:00 03/15/20 09:43 Enoxaparin Sodium 40 Mg/0.4 Ml Syringe SC 40 mg 0900 LILLI Administration Gabapentin 300 mg 03/09/20 18:00 03/15/20 11:49 Gabapentin 300 Mg Cap PO 300 mg Q6HR LILLI Administration Ceftriaxone Sodium 2 gm/ 100 mls @ 200 mls/hr 03/06/20 18:00 03/15/20 13:56 Sodium Chloride IVPB 100 mls 1800 LILLI Administration Insulin Glargine 25 units/ 0.25 mls @ 0 mls/hr 03/11/20 21:00 03/15/20 09:43 Miscellaneous Medication SC 0.25 mls BID LILLI Administration Insulin Human Lispro 0 units 03/10/20 17:14 03/15/20 05:08 Humalog 300 Units/3 Ml Vial SC 10 unit .MODERATE SLIDING SC PRN Administration Moderate Correctional Scale Insulin Human Lispro 0 units 03/10/20 21:12 03/14/20 00:13 Humalog 300 Units/3 Ml Vial SC 2 unit .BEDTIME SLIDING SC PRN Administration Bedtime Correctional Scale Lisinopril 20 mg 03/10/20 09:00 03/15/20 09:47 Lisinopril 20 Mg Tab PO 20 mg DAILY LILLI Administration Lorazepam 2 mg 03/06/20 05:30 03/12/20 12:44 Lorazepam 2 Mg/Ml Vial SLOW IVP 04/05/20 05:30 2 mg Q1H PRN Administration Breakthrough agitation Pantoprazole Sodium 40 mg 03/06/20 09:00 03/15/20 09:44 Pantoprazole 40 Mg Vial IVP 40 mg Q12HR LILLI Administration Propofol 1,000 mg 03/06/20 05:30 03/08/20 08:45 Propofol 1,000 Mg/100 Ml Vial IV 04/05/20 05:30 1,000 mg INF PRN Administration TO ACHIEVE GOAL RASS Protocol Sodium Chloride 10 ml 03/06/20 21:00 03/15/20 11:50 Flush - Normal Saline 10 Ml Syringe IVF 10 ml Q12HR LILLI Administration - Exam Neck: negative: supple, symmetric, no JVD, no thyromegaly, no lymphadenopathy, no carotid bruit, JVD Heart: negative: RRR, no murmur, no gallops, no rubs, normal peripheral pulses, irregular, diminshed peripheral pulses, murmur present, II/IV, III/IV Respiratory: negative: CTAB, no wheezes, no rales, no ronchi, normal chest expansion, no tachypnea, normal percussion, rales, rhonchi, tachypneic, wheezes Gastrointestinal: negative: soft, non-tender, non-distended, normal bowel sounds, no palpable masses, no hepatomegaly, no splenomegaly, no bruit, no guarding, no rigidity, tender to palpation, distended, diminished bowl sounds, voluntary guarding Hosp A/P (1) Acute hypoxemic respiratory failure Code(s): J96.01 - ACUTE RESPIRATORY FAILURE WITH HYPOXIA Status: Acute (2) Diabetes Code(s): E11.9 - TYPE 2 DIABETES MELLITUS WITHOUT COMPLICATIONS Status: Acute (3) Septic joint Status: Acute (4) Anemia Code(s): D64.9 - ANEMIA, UNSPECIFIED Status: Chronic Qualifiers: Anemia type: unspecified type Qualified Code(s): D64.9 - Anemia, unspecified (5) Diabetes mellitus, insulin dependent (IDDM), controlled Code(s): SPC9188 - Status: Chronic (6) Substance abuse Code(s): F19.10 - OTHER PSYCHOACTIVE SUBSTANCE ABUSE, UNCOMPLICATED Status: Chronic (7) Sepsis Code(s): A41.9 - SEPSIS, UNSPECIFIED ORGANISM Status: Acute - Plan will continue current abx. pt intubated. will continue to check accuchecks. Per h&p pt was not following up for his abx treatment and no dressing changes either and was found to be hypoglycemic and was intubated. 03/09 pt extubated. will continue current abx. pt will be transitioned to medical floor. will resume his insulin. 03/12 we will continue ceftriaxone for now. Patient apparently does not have a home to go to we will try and see if we can get the son's information. accountant manager has been consulted. 03/13 will continue abx for now. once his abx is set up pt can be discharged. Family contacted and will educate them about checking pt's blood sugar. 03/14 patient up in bed no complaints we will continue antibiotics. Waiting for c ase management for antibiotics set up and also medications since patient is uninsured
== END 2020-03-15 19:45 | disposition home or self-care (01) | DRG 871 ==
LOC: ERS 01:20 → CCU 05:13 → 2NO 03-10 09:00 → ONC 03-11 15:37
PROVIDERS: ADMIT Student in an Organized Health Care Education/Training Program; ATTEND Internal Medicine
PROC: 5A1945Z Respiratory Ventilation, 24-96 Consecutive Hours (ICD-10-PCS; principal; 2020-03-06)
DX: A41.9 Sepsis, unspecified organism (principal); J96.01 Acute respiratory failure with hypoxia; G93.41 Metabolic encephalopathy; M00.861 Arthritis due to other bacteria, right knee; Z20.822 Contact with and (suspected) exposure to COVID-19; I10 Essential (primary) hypertension; R65.20 Severe sepsis without septic shock; F15.10 Other stimulant abuse, uncomplicated; F17.210 Nicotine dependence, cigarettes, uncomplicated; E10.649 Type 1 diabetes mellitus with hypoglycemia without coma; K22.8 Other specified diseases of esophagus; D64.9 Anemia, unspecified; Z95.1 Presence of aortocoronary bypass graft; Z78.1 Physical restraint status; Z79.899 Other long term (current) drug therapy; Z91.14 Patient's other noncompliance with medication regimen; Z91.19 Patient's noncompliance with other medical treatment and regimen; Z79.4 Long term (current) use of insulin; Z88.2 Allergy status to sulfonamides; B96.89 Other specified bacterial agents as the cause of diseases classified elsewhere
CPT/HCPCS: 36415; 36416; 36600; 71045; 71275; 80048; 82805; 82945; 84157; 85025; 87040; 87070; 87205; 89051; 93005; 94002; 94003; 96361; 96365; 96366; 96375; 99292; C9113; J0696; J1630; J1650; J1815; J2060; J2270; J2543; J2704; J3370; J3490; Q9967; U0002

== ENCOUNTER 2020-03-29 21:57 | Inpatient (IN) | payer SELFPAY ==
[2020-03-29] MEDS ORDERED: NS 0.9% w/ 20 MEQ KCL 1,000 ML IV SCH (22:45)
[2020-03-29 22:49] LABS: Base Excess-Venous -1.1 mmol/L (-2.0 to 3.0); Bicarbonate (HCO3v) 25.8 mmol/L (22.0-28.0); CO2 Tension (PvCO2) 51.2 mmHg (40.0-50.0); Calcium, Ionized 1.19 mmol/L (1.15-1.33); Chloride 105 mmol/L (98-107); Hemoglobin - Calc 13.6 g/dL (14.0-18.0); Potassium 4.4 mmol/L (3.5-5.1); Sodium 140 mmol/L (138-145); T. Carbon Dioxide 27.4 mmol/L (22.0-28.0); vO2 Saturation-calc 45.1 % (60.0-85.0)
[2020-03-29 22:50] LABS: Anion Gap 20 mmol/L (10-20); BUN (Urea Nitrogen) 40 mg/dL (8.9-20.6); Calc. Creatinine Clearance 0 mL/min (70-130); Calcium 8.7 mg/dL (7.8-10.44); Carbon Dioxide 22 mmol/L (22-29); Chloride 103 mmol/L (98-107); Glucose 353 mg/dL (70-105); Potassium 4.5 mmol/L (3.5-5.1); Sodium 140 mmol/L (136-145)
[2020-03-29] MEDS ORDERED: Ondansetron PF 4 MG/2 ML Vial ONE (23:09)
[2020-03-29] MEDS ORDERED: Dextrose 5 %-0.45 % NaCl 1,000 ML IV PRN (23:42)
[2020-03-29] MEDS ORDERED: D5 1/2 NS w/20 mEq KCL 1,000 ML IV PRN (23:42)
[2020-03-29] MEDS ORDERED: NS 0.9% w/ 20 MEQ KCL 1,000 ML IV PRN ×2 (23:42)
[2020-03-29] MEDS ORDERED: Sodium Chloride 0.9% 1,000 ML IV PRN ×4 (23:42)
[2020-03-29] MEDS ORDERED: Electrolyte Replacement Protocol 1 EACH IVPB ONE (23:42)
--- NOTE | 2020-03-29 23:42 | PDOC.HHP ---
Hospitalist HPI - History of Present Illness DKA History of Present Illness: This is a 44-year-old male patient with a history of diabetes mellitus, hypertension who was transferred from [facility] on account of DKA for higher level care. Of note he was discharged from here on 03/15/2020 after he was managed for sepsis and a septic right knee. Apparently was supposed to follow-up with antibiotics injections however he has been nonadherent. It appears he was on Rocephin Patient is generally known to be nonadherent to medication and has recurrent admissions for DKA. He presented at [facility] on account of nausea and vomiting altered mental status after his friend activated EMS. At the outside facility his BP was noted to be 175/119, respiratory 20, pulse 100, saturation 9% room air. He was hypothermic with rectal temperature was 95.2. His labs showed a leukocytosis of 13.0 with no bands. Hemoglobin was 14.7 and platelets 391. Chemistry showed bicarb of 17 and anion gap of 20. Beta hydro xybutyrate acid was 4.44. He met criteria for sepsis and was given a dose of cefepime to 30 mils per KG bolus of normal saline and insulin drip. He was transferred here for higher level care. At presentation here his mental status seemed to have improved and he was continued on DKA protocol. Although he was not very lucid he complained about pain in left knee pain. Hospitalist team was consulted to admit. Hospitalist ROS - Review of Systems ROS unobtainable: due to mental status Hospitalist History - Past Medical History Other Medical History: Type 1 diabetes mellitus, hypertension - Past Surgical History Other Surgical History: Right knee surgery, CABG. - Family History Family History: reports: no pertinent history - Social History Smoking Status: Current every day smoker Alcohol: reports: None Drugs: reports: methamphetamine - Exam General - other findings: Awake but drowsy Eye: PERRL, anicteric sclera ENT: normocephalic atraumatic Heart: RRR, no murmur, no rubs Respiratory: CTAB, no wheezes, no rales, no ronchi Gastrointestinal: soft, non-tender, non-distended, normal bowel sounds Extremities: no cyanosis, no clubbing, no edema Extremities - other findings: Wound on lateral right knee, warm slightly erythematous Neurological: cranial nerve grossly intact, no focal deficits Psychiatric - other findings: Oriented to self and place but not time. Somnolent Hospitalist Results - Labs Result Diagrams: 03/31/20 05:01 03/31/20 05:01 Lab results: VBG pCO2 51.2 mmHg (40.0-50.0) H 03/29/20 22:45 VBG pO2 27.6 mmHg (35.0-45.0) L 03/29/20 22:45 Sodium 140 mmol/L (136-145) 03/29/20 22:27 Potassium 4.5 mmol/L (3.5-5.1) 03/29/20 22:27 Chloride 103 mmol/L (98-107) 03/29/20 22:27 Carbon Dioxide 22 mmol/L (22-29) 03/29/20 22:27 BUN 40 mg/dL (8.9-20.6) H 03/29/20 22:27 Creatinine 1.15 mg/dL (0.7-1.3) 03/29/20 22:27 Glucose 353 mg/dL (70-105) H 03/29/20 22:27 Lactic Acid 2.0 mmol/L (0.5-2.2) 03/29/20 22:27 Calcium 8.7 mg/dL (7.8-10.44) 03/29/20 22:27 Hospitalist H&P A/P - Plan Plan: This is a 44-year-old male patient with a history of diabetes mellitus, coronary disease status post CABG recently discharged after septic right knee management was transferred here today from outside hospital on account of DKA, sepsis and septic right knee. Severe sepsis Altered mental status hypoxemia lactic acidosis, leukocytosisAKI Received 30 mils per KG normal saline and ongoing fluids on DKA protocol Was given cefepimewe will continue vancomycin and Zosyn for now given recent admission Trend lactate Follow cultures Septic right knee Knee slightly warm and erythematous Open wound on the lateral side of right knee Currently on vancomycin and Zosyn Orthopedic consult in a.m. ID consult as well DKA Continue DKA protocol Transition as indicated. Open wound on the right Wound care consult Hypertension Resume home BP medications once verified ASAEL Creatinine went up to 1.5 however resolved with fluids Hold lisinopril for now Hypertension As needed hydralazine Consider starting amlodipine. VT prophylaxisLovenox CODE STATUSfull code
[2020-03-29] MEDS ORDERED: HUMULIN R 100 UNITS in Sodium Chloride 0.9% 100 ML IVPB SCH (23:45)
[2020-03-29 23:52] VITALS: BMI 20.3
[2020-03-30 00:06] LABS: SARS-CoV-2 NAA Rapid Test Not Detected (NotDetected)
[2020-03-30] MEDS ORDERED: hydrALAZINE 20 MG/ML VIAL SLOW IVP PRN (00:51)
[2020-03-30] MEDS ORDERED: hydrALAZINE 20 MG/ML VIAL ONE (00:54)
[2020-03-30] MEDS ORDERED: Pantoprazole 40 MG VIAL ONE ×2 (00:54→09:06)
[2020-03-30 00:59] LABS: Phosphorus 3.5 mg/dL (2.3-4.7)
[2020-03-30 01:00] LABS: Anion Gap 21 mmol/L (10-20); BUN (Urea Nitrogen) 40 mg/dL (8.9-20.6); Calc. Creatinine Clearance 66 mL/min (70-130); Calcium 8.5 mg/dL (7.8-10.44); Carbon Dioxide 20 mmol/L (22-29); Chloride 104 mmol/L (98-107); Glucose 272 mg/dL (70-105); Magnesium 2.2 mg/dL (1.6-2.6); Potassium 4.3 mmol/L (3.5-5.1); Sodium 141 mmol/L (136-145)
[2020-03-30] MEDS ORDERED: Pantoprazole 40 MG VIAL IVP SCH (01:15)
[2020-03-30] MEDS ORDERED: Piperacillin/Tazobactam 4.5 GM in Sodium Chloride 0.9% 100 ML IVPB SCH ×2 (03:00→12:00)
[2020-03-30 03:24] LABS: Anion Gap 15 mmol/L (10-20); BUN (Urea Nitrogen) 32 mg/dL (8.9-20.6); Calc. Creatinine Clearance 83 mL/min (70-130); Calcium 8.2 mg/dL (7.8-10.44); Carbon Dioxide 23 mmol/L (22-29); Chloride 111 mmol/L (98-107); Glucose 111 mg/dL (70-105); Potassium 4.6 mmol/L (3.5-5.1); Sodium 144 mmol/L (136-145)
[2020-03-30] MEDS ORDERED: Vancomycin 1.5 GRAM/300 ML BAG 1.5 GM in Premix Bag 1 BAG IVPB SCH (03:30)
[2020-03-30] MEDS ORDERED: Piperacillin/Tazobactam 4.5 GM VIAL ONE (03:32)
[2020-03-30] MEDS ORDERED: D5 1/2 NS w/20 mEq KCL 1,000 ML ONE (03:40)
[2020-03-30 04:45] LABS: #Eosinphils 0.1 thou/uL (0.0-0.7); #Lymphocytes 2.6 thou/uL (1.20-3.40); #Monocytes 0.8 thou/uL (0.11-0.59); #Neutrophils 10.2 thou/uL (1.40-6.50); %Basophils 0.3 % (0.0-1.0); %Eosinophils 0.8 % (0.0-10.0); %Lymphocytes 18.8 % (21.0-51.0); %Monocytes 5.7 % (0.0-10.0); %Neutrophils 74.6 % (42.0-75.0); Hemoglobin 11.8 g/dL (14.0-18.0); Mean Corpuscular HGB CONC 32.2 g/dL (32.0-36.0); Mean Corpuscular Hemoglobin 27.6 pg (27.0-31.0); Mean Corpuscular Volume 85.5 fL (78.0-98.0); Mean Platelet Volume 7.5 fL (7.4-10.4); Platelet Count 340 thou/uL (130-400); RBC Distribution Width 14.5 % (11.5-14.5); Red Blood Cell (RBC) Count 4.29 mill/uL (4.70-6.10); White Blood Cell (WBC) Count 13.6 thou/uL (4.8-10.8)
[2020-03-30] MEDS ORDERED: Acetaminophen 325 MG TAB ONE (05:45)
[2020-03-30 07:17] LABS: Anion Gap 14 mmol/L (10-20); BUN (Urea Nitrogen) 29 mg/dL (8.9-20.6); Calc. Creatinine Clearance 82 mL/min (70-130); Carbon Dioxide 24 mmol/L (22-29); Chloride 110 mmol/L (98-107); Glucose 107 mg/dL (70-105); Potassium 4.5 mmol/L (3.5-5.1); Sodium 143 mmol/L (136-145)
--- NOTE | 2020-03-30 07:53 | RAD ---
EXAM: XR Knee Rt 2 View PROVIDED CLINICAL HISTORY: Septic arthritis FINDINGS: There is no evidence for fracture or other acute osseous abnormality. Alignment appears anatomic. Mallory nt spaces appear preserved. Mild knee joint capsular distention. Soft tissue prominence laterally. IMPRESSION: No evidence for an acute osseous abnormality. If there is persistent clinical concern, conservative m anagement and follow-up imaging advised.
[2020-03-30] MEDS ORDERED: Enoxaparin Sodium 40 MG/0.4 ML SYRINGE ONE (09:06)
[2020-03-30] MEDS: Pantoprazole 40 MG VIAL IVP SCH (09:15)
[2020-03-30] MEDS: Enoxaparin Sodium 40 MG/0.4 ML SYRINGE SC SCH (09:15)
--- NOTE | 2020-03-30 10:39 | PDOC.HOSPP ---
- Subjective Encounter Date: 03/30/20 Encounter Time: 10:37 Subjective: Mr. Vazquez was seen today in follow-up of diabetes uncontrolled, and right septic knee joint. He appears to have "shut down". He will barly answer any of my questions. I asked him if he is feeling depressed and he did not answer my question. He keeps saying he wants to go home. - Objective Vital Signs & Weight: Vital Signs (12 hours) Pulse BP 03/30/20 01:05 114 H 182/106 H Weight Weight 126 lb 1.671 oz Result Diagrams: 03/30/20 04:27 03/30/20 06:46 Additional Labs: Accuchecks 03/30/20 03/30/20 03/30/20 06:06 04:50 03:59 POC Glucose 190 H 116 H 78 03/30/20 03/30/20 03/30/20 02:45 01:44 00:44 POC Glucose 110 H 133 H 178 H 03/29/20 03/29/20 23:25 22:08 POC Glucose 266 H 292 H Hospitalist ROS - Medication Medications: Active Medications Generic Name Dose Route Start Last Admin Trade Name Freq PRN Reason Stop Dose Admin Enoxaparin Sodium 40 mg 03/30/20 09:00 03/30/20 09:15 Enoxaparin Sodium 40 Mg/0.4 Ml Syringe SC 40 mg 0900 LILLI Administration Hydralazine HCl 10 mg 03/30/20 00:51 03/30/20 01:05 Hydralazine 20 Mg/Ml Vial SLOW IVP 10 mg Q4H PRN Administration SBP > 180 Potassium Chloride/Dextrose/Sod Cl 1,000 mls @ 250 mls/hr 03/29/20 23:42 03/30/20 03:50 D5 1/2 Ns W/20 Meq Kcl IV 1,000 mls .Q4H PRN Administration Step 4 of DKA Protocol Protocol Potassium Chloride/Sodium Chloride 1,000 mls @ 500 mls/hr 03/29/20 23:42 03/29/20 22:55 Ns 0.9% W/ 20 Meq Kcl IV 1,000 mls .Q2H PRN Administration Step 2 of DKA Protocol Protocol Pantoprazole Sodium 40 mg 03/30/20 09:00 03/30/20 09:15 Pantoprazole 40 Mg Vial IVP 40 mg DAILY LILLI Administration - Exam Eye: PERRL Heart: RRR, no murmur, no gallops, no rubs Respiratory: CTAB, no wheezes, no rales, no ronchi, normal chest expansion Extremities: no cyanosis, no edema Hosp A/P (1) Septic joint Status: Acute (2) Diabetes mellitus, insulin dependent (IDDM), controlled Code(s): CUW2665 - Status: Chronic (3) Substance abuse Code(s): F19.10 - OTHER PSYCHOACTIVE SUBSTANCE ABUSE, UNCOMPLICATED Status: Chronic - Plan * DKA- resolved - can transition him to his back to his home dose. He tells me he has been without his insulin for several days. He will not elaborate on this. Will consult case management to aid * Septic knee- i asked what obstacles he is having to obtain his antibiotics- he again did not answe. I am not sure if it is a transporation issue, or not- again will consult case management * HTN
[2020-03-30] MEDS ORDERED: cefTRIAXone\\ROCEPHIN 1 GM in Sodium Chloride 0.9% 100 ML IVPB SCH (10:45)
[2020-03-30] MEDS ORDERED: hydrALAZINE 25 MG TAB PO PRN (10:47)
[2020-03-30] MEDS ORDERED: Lisinopril 20 MG TAB PO SCH (11:00)
--- NOTE | 2020-03-30 11:30 | CON ---
DATE OF CONSULTATION: 03/30/2020 REQUESTING PHYSICIAN: Adalberto Angel MD CONSULTING PHYSICIAN: Chato Gutiérrez MD REASON FOR CONSULTATION: Re-evaluation of right knee septic arthritis. BRIEF CLINICAL HISTORY: Blade is a 44-year-old male we recently took on consult back in early February of last year. He presented with a group B strep septic arthritis, which was treated with arthroscopic washout, open arthrotomy and I and D of the external aspect of the abscess. Dr. Stein has been following the patient, treating him with Rocephin as an outpatient and the patient recently was readmitted by the medicine team for diabetic ketoacidosis. He has had another bounce-back and readmission for the same problem within the last month. His knee, however, has been improving slowly and he is still receiving parenteral antibiotics. The patient is able to stand and walk and bear weight on the right knee. PHYSICAL EXAMINATION: GENERAL: He is afebrile he is alert, responsive, and appropriate with examiner, conversive and pleasant. EXTREMITIES: Visual inspection of the right knee demonstrates him to have prior arthrotomy sites are healed. He has one area over the IT band laterally, which is granulating in quite well. His range of motion is little bit limited and is somewhat stiff, but non-provocative and non-concordant for pain. IMPRESSION: 1. Readmission for diabetic ketoacidosis. 2. Right knee group B strep septic arthritis versus resolving. PLAN: Continue current care. We will follow the patient about every other day through his admission and then ultimately see him as outpatient. Job ID: [id number]
[2020-03-30] MEDS ORDERED: cefTRIAXone\\ROCEPHIN 2 GM VIAL ONE (11:42)
[2020-03-30] MEDS ORDERED: Lisinopril 10 MG TAB ONE (11:42)
[2020-03-30] MEDS: cefTRIAXone\\ROCEPHIN 2 GM in Sodium Chloride 0.9% 100 ML IVPB SCH (11:58)
[2020-03-30] MEDS: Gabapentin 300 MG CAP PO SCH ×2 (14:37→18:08)
[2020-03-30] MEDS ORDERED: Dextrose 50% Abboject 50 ML SYRINGE IVP PRN (15:45)
[2020-03-30] MEDS ORDERED: Dextrose 5% in Water 1,000 ML IV PRN (15:45)
[2020-03-30] MEDS ORDERED: Vancomycin HCl 750 MG in Sodium Chloride 0.9% 250 ML 250 ML IVPB SCH (17:00)
[2020-03-30] MEDS: HYDROcodone/Acetaminophen 10/325 mg Tablet PO PRN ×2 (17:07→21:32)
[2020-03-30] MEDS ORDERED: Calcium Carbonate 500 MG ChewTAB PO PRN (18:51)
[2020-03-30] MEDS: HumuLIN 70/30 (300 UNITS/3 ML VIAL) SC SCH (21:32)
[2020-03-31] MEDS: Gabapentin 300 MG CAP PO SCH ×4 (01:22→17:45)
[2020-03-31] MEDS: HYDROcodone/Acetaminophen 10/325 mg Tablet PO PRN ×3 (02:23→21:06)
[2020-03-31 05:31] LABS: #Basophils 0.1 thou/uL (0.0-0.2); #Eosinphils 0.1 thou/uL (0.0-0.7); #Lymphocytes 2.4 thou/uL (1.20-3.40); #Monocytes 0.5 thou/uL (0.11-0.59); #Neutrophils 5.6 thou/uL (1.40-6.50); %Basophils 0.6 % (0.0-1.0); %Eosinophils 1.1 % (0.0-10.0); %Lymphocytes 27.5 % (21.0-51.0); %Monocytes 5.6 % (0.0-10.0); %Neutrophils 65.1 % (42.0-75.0); Mean Corpuscular Hemoglobin 27.2 pg (27.0-31.0); Mean Corpuscular Volume 85.2 fL (78.0-98.0); Mean Platelet Volume 7.7 fL (7.4-10.4); Platelet Count 289 thou/uL (130-400); RBC Distribution Width 14.6 % (11.5-14.5); Red Blood Cell (RBC) Count 4.04 mill/uL (4.70-6.10); White Blood Cell (WBC) Count 8.6 thou/uL (4.8-10.8)
[2020-03-31 05:49] LABS: Anion Gap 11 mmol/L (10-20); BUN (Urea Nitrogen) 14 mg/dL (8.9-20.6); Calc. Creatinine Clearance 87 mL/min (70-130); Carbon Dioxide 26 mmol/L (22-29); Chloride 106 mmol/L (98-107); Glucose 212 mg/dL (70-105); Potassium 3.8 mmol/L (3.5-5.1); Sodium 139 mmol/L (136-145)
[2020-03-31] MEDS: Pantoprazole 40 MG VIAL IVP SCH (09:01)
[2020-03-31] MEDS: Enoxaparin Sodium 40 MG/0.4 ML SYRINGE SC SCH (09:01)
[2020-03-31] MEDS: HumuLIN 70/30 (300 UNITS/3 ML VIAL) SC SCH ×2 (09:01→21:35)
[2020-03-31] MEDS: Lisinopril 20 MG TAB PO SCH (09:02)
[2020-03-31] MEDS: cefTRIAXone\\ROCEPHIN 2 GM in Sodium Chloride 0.9% 100 ML IVPB SCH (11:38)
[2020-03-31 12:05] LABS: Amphetamine Detected (NotDetected); Barbiturates Screen Not Detected (NotDetected); Benzodiazepine Screen Not Detected (NotDetected); Cocaine Metabolite Screen Not Detected (NotDetected); Medtox Control Line Valid? VALID (VALID); Medtox Reader # READER 4; Methadone Not Detected (NotDetected); Methamphetamine Detected (NotDetected); Opiate Screen Detected (NotDetected); Oxycodone Screen Not Detected (NotDetected); Phencyclidine (PCP) Not Detected (NotDetected); THC/Cannabinoid Screen Not Detected (NotDetected); Tricyclic Screen Not Detected (NotDetected)
--- NOTE | 2020-03-31 15:25 | PDOC.HOSPP ---
- Subjective Encounter Date: 03/31/20 Encounter Time: 15:23 Subjective: Mr. Vazquez was seen today in follow-up. Today he did not have any complaints, but was teartful and cryinh a times. He would not admit to feeling depressed, but when I asked him whether he was he would just start crying again. He just said to call his son, and he would know more about it. - Objective Vital Signs & Weight: Vital Signs (12 hours) Temp Pulse Resp BP BP Pulse Ox 03/31/20 11:35 97.7 F 98 16 121/74 99 03/31/20 09:02 100/63 03/31/20 07:38 98.0 F 93 14 100/63 99 Weight Admit Weight 126 lb 1.68 oz Weight 126 lb 1.671 oz I&O: 03/30/20 03/31/20 04/01/20 06:59 06:59 06:59 Intake Total 720 540 Output Total 900 Balance -180 540 Result Diagrams: 03/31/20 05:01 03/31/20 05:01 Additional Labs: Accuchecks 03/31/20 03/31/20 03/30/20 11:33 05:36 20:30 POC Glucose 112 H 216 H 348 H 03/30/20 15:52 POC Glucose 290 H Hospitalist ROS - Medication Medications: Active Medications Generic Name Dose Route Start Last Admin Trade Name Freq PRN Reason Stop Dose Admin Hydrocodone Bitart/Acetaminophen 1 tab 03/30/20 10:45 03/31/20 09:01 Hydrocodone/Acetaminophen 10/325 Mg Tablet PO 1 tab Q4H PRN Administration Moderate to Severe Pain (6-10) Calcium Carbonate 1,000 mg 03/30/20 18:51 03/31/20 02:23 Calcium Carbonate 500 Mg Chewtab PO 1,000 mg Q4H PRN Administration Heartburn or Indigestion Enoxaparin Sodium 40 mg 03/30/20 09:00 03/31/20 09:01 Enoxaparin Sodium 40 Mg/0.4 Ml Syringe SC 40 mg 0900 LILLI Administration Gabapentin 300 mg 03/30/20 12:00 03/31/20 11:38 Gabapentin 300 Mg Cap PO 300 mg Q6HR LILLI Administration Hydralazine HCl 10 mg 03/30/20 00:51 03/30/20 01:05 Hydralazine 20 Mg/Ml Vial SLOW IVP 10 mg Q4H PRN Administration SBP > 180 Ceftriaxone Sodium 2 gm/ 100 mls @ 200 mls/hr 03/30/20 11:00 03/31/20 11:38 Sodium Chloride IVPB 100 mls Q24HR LILLI Administration Insulin Human Isoph/Insulin Regular 25 units 03/30/20 21:00 03/31/20 09:01 Humulin 70/30 (300 Units/3 Ml Vial) SC 25 unit BID LILLI Administration Lisinopril 20 mg 03/31/20 09:00 03/31/20 09:02 Lisinopril 20 Mg Tab PO Not Given DAILY LILLI Pantoprazole Sodium 40 mg 03/30/20 09:00 03/31/20 09:01 Pantoprazole 40 Mg Vial IVP 40 mg DAILY LILLI Administration - Exam Eye: PERRL, anicteric sclera Heart: RRR, no murmur, no gallops, no rubs, normal peripheral pulses Respiratory: CTAB, no wheezes, no rales, no ronchi, normal chest expansion Gastrointestinal: soft, non-tender, non-distended, normal bowel sounds, no palpable masses, no hepatomegaly, no splenomegaly Extremities: no cyanosis, no edema Hosp A/P (1) Septic joint Status: Acute (2) Diabetes mellitus, insulin dependent (IDDM), controlled Code(s): GKO9348 - Status: Chronic (3) Substance abuse Code(s): F19.10 - OTHER PSYCHOACTIVE SUBSTANCE ABUSE, UNCOMPLICATED Status: Chronic - Plan * DKA- resolved - * Diabete mellitus- place him back on his usual dose of insulin, as well as SSI * Septic knee- The would vac has been replaced. Continue local wound care * Await ID evaluation- to see if he needs continued IV antibiotics * Depression- will start Zoloft, and he will need MHMR evaluation prior to discharge * HTN - blood pressure is stable * Patient says he is not sure if he will have a place to stay when he leaves the hospital- Case Management has been consulted
--- NOTE | 2020-03-31 20:57 | CON ---
DATE OF CONSULTATION: 03/31/2020 REASON FOR CONSULTATION: Followup on recent treatment for his right knee infection. HISTORY OF PRESENT ILLNESS: The patient is a 44-year-old gentleman, who has a history of type 1 diabetes and hypertension and coronary disease, and he recently moved from [place] to be with family, kind of sketchy story that he provided, developed inflammatory changes of right knee, and he was diagnosed with group B strep septic arthritis. All the blood cultures were negative, and he had a washout and treatment with Rocephin. He was discharged on March 15 and has thus far received about 35 days of antimicrobial therapy. Looks like after leaving the hospital, he was supposed to come daily to get his IM injection of Rocephin but missed a few doses, not clear how many. He turns back in to the emergency room because of altered mental state. The pulse was 116, respirations 22, O2 saturation 100, BP was 150/106. He was afebrile. Actually initially, he was hypothermic. Lungs sounds were clear. Heart normal. Abdomen is soft. Two incisions in the right knee that were healing well. He opened eyes spontaneously. He was confused and disoriented, was able to localize to pain. Speech was slurred. Other findings initially showed a white cell count 13.6 and hemoglobin 11.8, platelets 340 with 74% neutrophils. Sodium 140, creatinine 1.14, glucose 272 with 8.5 calcium. SARS-CoV-2 not detected. Toxic screen with methamphetamines and amphetamines. His beta-hydroxybutyrate was elevated. His carbon dioxide was 20. Initial impression, possible sepsis, altered mental status, hypoxemia, lactic acidosis. Currently, he is totally awake, follows commands. Denies any headaches. No respiratory symptoms. No abdominal pain. His right knee is actually doing quite well with markedly decreased pain compared with last visit. He is able to ambulate. PAST MEDICAL HISTORY: Type 1 diabetes, hypertension, coronary disease, methamphetamine use. PAST SURGICAL HISTORY: Coronary stenting. SOCIAL HISTORY: Methamphetamine user. Basically smokes daily. Drinks occasionally. FAMILY HISTORY: Noncontributory. ALLERGIES: SULFA DRUGS. CURRENT MEDICATIONS: Ceftriaxone, gabapentin, hydralazine, pantoprazole. PHYSICAL EXAMINATION: VITAL SIGNS: Has remained afebrile in the hospital, O2 saturation 99% on room air, pulse 98, respirations 16. SKIN: Shows multiple tattoos. The right knee arthroscopy site has healed. He has a peripheral IV access. HEENT: Ocular movements conjugate. Oral cavity with numerous missing teeth. NECK: Supple. LUNGS: Symmetric. Clear breath sounds. HEART: S1, S2. Regular rate. No S3 or S4. ABDOMEN: Soft, not distended or tender. No ascites. No bladder distention. EXTREMITIES: He moves extremities with some limitations from the previous right knee inflammatory process. NEUROLOGIC: He is awake, knows his name, follows commands. Recollection is decent. He seems to be kind of embarrassed by whatever happened before he came to the hospital. May be related to his drug use. LABORATORIES: His current white cell count is down to 8.6, hemoglobin 11, platelets 289. Creatinine 1.14, calcium 8.5. IMAGING: There is a knee x-ray with no abnormalities of significance, some soft tissue prominence, though that is the only change. Chest x-ray with no acute changes. The patient had a previous chest CT about 3 weeks ago with findings suggestive of interstitial pulmonary edema. ASSESSMENT AND DISCUSSION: Methamphetamine use, chronic, type 1 diabetes, recent admission for group B strep, right knee septic arthritis. So far, he has received about 32 days of IM Rocephin. The event that precipitated the current admission is not clear but could be related to drug use and altered mental state related to it. His knee process actually is improving markedly compared to last admission. So upon discharge, I would consider switching him to oral amoxicillin 1 g q.8 hours and treat him for another 2 weeks approximately. Job ID: [id number]
[2020-04-01] MEDS: Gabapentin 300 MG CAP PO SCH ×5 (01:03→23:17)
[2020-04-01] MEDS: HYDROcodone/Acetaminophen 10/325 mg Tablet PO PRN ×3 (03:19→19:48)
[2020-04-01 05:53] LABS: Anion Gap 9 mmol/L (10-20); BUN (Urea Nitrogen) 15 mg/dL (8.9-20.6); Calc. Creatinine Clearance 106 mL/min (70-130); Calcium 8.2 mg/dL (7.8-10.44); Carbon Dioxide 31 mmol/L (22-29); Chloride 102 mmol/L (98-107); Glucose 113 mg/dL (70-105); Potassium 3.9 mmol/L (3.5-5.1); Sodium 138 mmol/L (136-145)
[2020-04-01] MEDS: Pantoprazole 40 MG VIAL IVP SCH (08:25)
[2020-04-01] MEDS: Enoxaparin Sodium 40 MG/0.4 ML SYRINGE SC SCH (08:25)
[2020-04-01] MEDS: HumuLIN 70/30 (300 UNITS/3 ML VIAL) SC SCH ×2 (08:26→21:48)
[2020-04-01] MEDS: Lisinopril 20 MG TAB PO SCH (08:26)
[2020-04-01] MEDS: cefTRIAXone\\ROCEPHIN 2 GM in Sodium Chloride 0.9% 100 ML IVPB SCH (11:08)
--- NOTE | 2020-04-01 13:48 | PDOC.HOSPP ---
- Subjective Encounter Date: 04/01/20 Encounter Time: 13:47 Subjective: Mr. Vazquez was seen today in follow-up of uncontrolled diabetes, and septic knee. He does not have any complaints, but cries often. He will not elaborate on the situation, other than he beleives he doesn't have anywhere to go. He denies suicidal or homicidal ideation. - Objective Vital Signs & Weight: Vital Signs (12 hours) Temp Pulse Resp BP BP Pulse Ox 04/01/20 11:33 97.7 F 97 14 127/75 98 04/01/20 08:26 155/98 H 04/01/20 07:40 97.5 F L 91 18 155/98 H 100 04/01/20 03:17 98 F 85 18 141/87 H 100 Weight Admit Weight 126 lb 1.68 oz Weight 126 lb 1.671 oz I&O: 03/31/20 04/01/20 04/02/20 06:59 06:59 06:59 Intake Total 720 1320 600 Output Total 900 Balance -180 1320 600 Result Diagrams: 03/31/20 05:01 04/01/20 05:17 Additional Labs: Accuchecks 04/01/20 04/01/20 03/31/20 11:33 05:07 21:32 POC Glucose 116 H 104 H 272 H Hospitalist ROS - Medication Medications: Active Medications Generic Name Dose Route Start Last Admin Trade Name Freq PRN Reason Stop Dose Admin Hydrocodone Bitart/Acetaminophen 1 tab 03/30/20 10:45 04/01/20 13:29 Hydrocodone/Acetaminophen 10/325 Mg Tablet PO 1 tab Q4H PRN Administration Moderate to Severe Pain (6-10) Calcium Carbonate 1,000 mg 03/30/20 18:51 03/31/20 02:23 Calcium Carbonate 500 Mg Chewtab PO 1,000 mg Q4H PRN Administration Heartburn or Indigestion Enoxaparin Sodium 40 mg 03/30/20 09:00 04/01/20 08:25 Enoxaparin Sodium 40 Mg/0.4 Ml Syringe SC 40 mg 0900 LILLI Administration Gabapentin 300 mg 03/30/20 12:00 04/01/20 11:09 Gabapentin 300 Mg Cap PO 300 mg Q6HR LILLI Administration Hydralazine HCl 10 mg 03/30/20 00:51 03/30/20 01:05 Hydralazine 20 Mg/Ml Vial SLOW IVP 10 mg Q4H PRN Administration SBP > 180 Ceftriaxone Sodium 2 gm/ 100 mls @ 200 mls/hr 03/30/20 11:00 04/01/20 11:08 Sodium Chloride IVPB 100 mls Q24HR LILLI Administration Insulin Human Isoph/Insulin Regular 25 units 03/30/20 21:00 04/01/20 08:26 Humulin 70/30 (300 Units/3 Ml Vial) SC 25 unit BID LILLI Administration Lisinopril 20 mg 03/31/20 09:00 04/01/20 08:26 Lisinopril 20 Mg Tab PO 20 mg DAILY LILLI Administration Pantoprazole Sodium 40 mg 03/30/20 09:00 04/01/20 08:25 Pantoprazole 40 Mg Vial IVP 40 mg DAILY LILLI Administration - Exam General Appearance: NAD Eye: PERRL, anicteric sclera Heart: RRR, no murmur, no gallops, no rubs, normal peripheral pulses Respiratory: CTAB, no wheezes, no rales, no ronchi, normal chest expansion, no tachypnea, normal percussion Gastrointestinal: soft, non-tender, non-distended, normal bowel sounds, no palpable masses, no hepatomegaly Extremities: no cyanosis, no edema Hosp A/P (1) Septic joint Status: Acute (2) Diabetes mellitus, insulin dependent (IDDM), controlled Code(s): [id number] - Status: Chronic (3) Substance abuse Code(s): F19.10 - OTHER PSYCHOACTIVE SUBSTANCE ABUSE, UNCOMPLICATED Status: Chronic - Plan * DKA- resolved - * Diabete mellitus- blood glucose is within reasonable range * Septic knee- The would vac has been replaced. Continue local wound care * ID recommendations noted- He can be transitioned to Amoxicillin orally * Depression- will start Zoloft, and he will need MHMR evaluation. He is medically stable for discharge. Now needs safe discharge plans. * HTN - blood pressure is slightly labile, but within acceptable range * Patient says he is not sure if he will have a place to stay when he leaves the hospital- Case Management has been consulted
[2020-04-01] MEDS ORDERED: Dextrose 50% Abboject 50 ML SYRINGE SLOW IVP PRN (22:44)
[2020-04-01] MEDS ORDERED: HumaLOG 300 UNITS/3 ML VIAL SC PRN (22:44)
[2020-04-01] MEDS ORDERED: Dextrose 5% in Water 1,000 ML IV PRN (22:44)
[2020-04-02 00:07] VITALS: BP 149/91; TEMP 98
--- NOTE | 2020-04-05 02:38 | PQF ---
Dear : Prosper Quan Date 04/05/2020 Please exercise your independent, professional judgment in responding to the clarification form. Clinical indicators are provided on the bottom of this form for your review Based on your clinical judgment, can you please specify the infectious status of this patient? Please check appropriate box(es): [ ] Sepsis due to Strep B Septic right knee Arthritis [ ] Severe sepsis due to Strep B Septic right knee Arthritis [ X ] Localized infection without sepsis [ ] Other diagnosis please specify [ ] Unable to determine Physician Signature: Date/Time: For continuity of documentation, please document condition throughout progress notes and discharge summary. Thank You. To be completed by CDI/Coding staff for physician review: Present Clinical Indicators - Signs / Symptoms / Labs Results and Location in Medical Record [ x ] Severe sepsis H and P pg.3 [ x ] Altered mental status, hypoxia H and P pg.3 [ x ] lactic acidosis H and P pg.3 [ x ] ASAEL H and P pg.3 [ x ] 03/15/20 after he was managed for sepsis and septic right knee H and P pg.1 [ x ] hypothermic Consult 03/31 pg.1 [ x ] Initial impression, possible Sepsis Consult 03/31 pg.1 [ x ] Recent admission for group B, right knee septic arthritis Consult 03/31 pg.2 [ x ] Temp=98 Sdnpu=559 RH=332/85 Respi=18 Vital Signs 03/30 [ x ] WBC: 03/30=13.6 03/31=8.6 Laboratory 03/30 [ x ] Lactic: 03/29=2.0 Laboratory 03/29 [ x ] Blood culture: no growth Laboratory 03/29 Present Risk Factors Results and Location in Medical Record [ x ] Septic right knee H and P pg.3 [ x ] DKA H and P pg.3 [ x ] Smoker ED Notes 03/29 Present Treatments Results and Location in Medical Record [ x ] Infectious Consult Dr. Stein 03/31 [ x ] IV Fluids MAR [ x ] Rocephin 2 gm IV MAR [ x ] Zosyn 4.5gm IV MAR [ x ] Vancomycin 1.5gm MAR CDS/Skirt Clipper Signature: Gee Zhong Phone #: ext [phone] Date 04/05/2020 This is a permanent part of the Medical Record [facility]
--- NOTE | 2020-04-06 13:03 | PDOC.DS.DS ---
Provider Date of Admission: 03/29/20 22:42 Date of Discharge: 04/02/20 Admitting Provider: Adalberto Angel MD Consultations: Infectious Disease, Orthopedics Primary Care Physician: NO PCP PROVIDER Course Hospital Course: Mr. Vazquez is a 44 year old gentleman with a history of Diabetes mellitus, and i nfected right knee joint. He was brought to the ER in [place] and then transferred to our facility, due to nausea and vomiting, and altered mental status. He was found to be in DKA. He was admitted and placed on an insulin drip. The DKA quickly resolved, and he could be placed back on his usual dose of insulin. He admitted that he had not taken is insulin in a few days. He also has a history of a MRSA infection of the knee. He also has exhibited some non- complaint behaviour with regards to following up with the infusion center for the IM Rocepkyn. Orthopedic Surgery was consulted as well as ID, with regards to the infected knee. It was decided that he could be switched to Amoxicillin p.o. to complete his antibiotic curse. He also exhibited some signs of severe depression, adn for this reason an MHMR consulted was done once he was medically cleared. It was not felt that he was suicidal or homicidal, and follow-up information was given to the patient. He was to be discharged the following day in the care of his brother. Apparently he left AMA the following day. Lab Results: 03/31/20 05:01 04/01/20 05:17 Vitals: Weight Admit Weight 126 lb 1.68 oz Weight 126 lb 1.671 oz Physical Exam: The patient was seen and examined on the day of discharge. Problem (1) Septic joint Status: Acute (2) Diabetes mellitus, insulin dependent (IDDM), controlled Code(s): [id number] - Status: Chronic (3) Substance abuse Code(s): F19.10 - OTHER PSYCHOACTIVE SUBSTANCE ABUSE, UNCOMPLICATED Status: Chronic Plan Home Medications: Medication Instructions Recorded Confirmed Type Gabapentin 300 mg PO Q6H #120 capsule 03/01/20 04/06/20 Rx HYDROcodone Bit/APAP 10/325 [[place]] 1 tab PO Q4H PRN #20 tab 03/01/20 04/06/20 Rx Lisinopril 20 mg PO DAILY #30 tablet 03/01/20 04/06/20 Rx Amoxicillin [Amoxil] 1 gm PO Q8HR #42 cap 04/08/20 Rx Atorvastatin Calcium [Lipitor] 40 mg PO HS #30 tab 04/08/20 Rx HumuLIN 70/30 [HumuLIN 70/30 Vial] 15 unit SC BID #1 vial 04/08/20 Rx Saccharomyces boulardii [Florastor] 250 mg PO DAILY #20 cap 04/08/20 Rx Allergies: Sulfa (Sulfonamide Antibiotics) Allergy (Verified 03/30/20 16:17) Activity:: Activity as Tolerated Referrals: PROVIDER,NO PCP [Primary Care Provider] - Disposition: LEFT AGAINST MEDICAL ADVICE Quality CORE MEASURES:: N/A
== END 2020-04-02 00:03 | disposition left against medical advice (07) | DRG 548 ==
LOC: ERS 21:57 → SJJU 22:16 → ERHOLD 22:42 → SJJU 03-30 15:41
PROVIDERS: ADMIT Student in an Organized Health Care Education/Training Program; ATTEND Internal Medicine
DX: M00.9 Pyogenic arthritis, unspecified (principal); E10.10 Type 1 diabetes mellitus with ketoacidosis without coma; N17.9 Acute kidney failure, unspecified; Z23 Encounter for immunization; Z20.822 Contact with and (suspected) exposure to COVID-19; I10 Essential (primary) hypertension; I25.10 Atherosclerotic heart disease of native coronary artery without angina pectoris; F17.210 Nicotine dependence, cigarettes, uncomplicated; F32.9 Major depressive disorder, single episode, unspecified; F15.10 Other stimulant abuse, uncomplicated; Z95.1 Presence of aortocoronary bypass graft; Z88.2 Allergy status to sulfonamides; Z91.14 Patient's other noncompliance with medication regimen; Z79.4 Long term (current) use of insulin; Z79.899 Other long term (current) drug therapy
CPT/HCPCS: 36415; 36416; 80048; 80306; 82010; 82330; 82803; 83605; 83735; 84100; 85025; 90471; 90732; 96365; 96368; 96375; 96376; C9113; G0009; J0360; J0696; J1650; J1815; J2405; J2543; J3370; J3480; J3490; U0002

== ENCOUNTER 2020-04-06 07:40 | Inpatient (IN) | payer SELFPAY ==
--- NOTE | 2020-04-06 11:08 | PDOC.HHP ---
Hospitalist HPI Altered mental status and hypoglycemia History of Present Illness: This is a 44-year-old white male with a history of methamphetamine abuse along with diabetes mellitus type 1 with multiple previous episodes of hypoglycemia. Patient recently left the hospital AMA after a DKA incidents. He did not ever get his amoxicillin that he was supposed to continue for [address] Stein for his septic arthritis. Patient was found down and EMS was called after he had did methamphetamines with some friends. Patient was found to be very hypoglycemic and was given multiple amps of D50 and brought to the [place] emergency room and then transferred here. Patient is not able to give any history. He knows he is in the emergency room though not which one. He states that he cannot remember anything prior to coming to emergency room. He states that he has not been on any antibiotics since his last hospitalization. He denies any other complaints, including complaints about his right knee. ED Course: Patient was initially seen in [place] emergency room. His blood sugar had jumped up to 200s after initial amp of D50 but dropped back down again and was administered again by EMS. In the [facility] emergency room he was still little groggy from his low blood sugar and from an Ativan that was given when he was hypertensive. Patient dropped yet again in the emergency room and was given another amp of D50 along with an infusion of D5W. He was also given a gram of Rocephin IV. He was then transferred to our emergency room. Allergies/Adverse Reactions: Allergy/AdvReac Type Severity Reaction Status Date / Time Sulfa (Sulfonamide Allergy Verified 03/30/20 16:17 Antibiotics) Home Medications: Medication Instructions Recorded Confirmed Type Gabapentin 300 mg PO Q6H #120 capsule 03/01/20 03/30/20 Rx HYDROcodone Bit/APAP 10/325 [[place]] 1 tab PO Q4H PRN #20 tab 03/01/20 03/30/20 Rx HumaLOG [HumaLOG Vial] 0 unit SC TID-WM PRN #1 vial 03/01/20 03/30/20 Rx Lisinopril 20 mg PO DAILY #30 tablet 03/01/20 03/30/20 Rx HumuLIN 70/30 [HumuLIN 70/30 Vial] 25 unit SC BID #1 vial 03/14/20 03/30/20 Rx Insulin NPH Hum/Reg Insulin HM 25 unit SC BID #1 vial 03/14/20 03/30/20 Rx [Novolin 70/30] cefTRIAXone\ROCEPHIN [Rocephin] 2 gm IVPB 1800 vial 03/14/20 03/30/20 Rx Past History: PMHx: 1. Diabetes mellitus type 1 long-acting and short acting insulin 2. Hypertension 3. Coronary artery disease PSHx: 1. Coronary artery bypass grafting versus stent 2. Irrigation and debridement of right knee infection FHx: No significant family medical history Social: Patient has a history of methamphetamine abuse. He is a daily smoker. No known alcohol use. Patient is unemployed. Hospitalist HPI ROS Constitutional: denies: fever, chills, weakness Eyes: denies: vision change, redness ENT: denies: nose congestion, throat pain Respiratory: denies: cough, shortness of breath, SOB with excertion Cardiovascular: denies: chest pain, palpitations Gastrointestinal: denies: nausea, vomiting, abdominal pain, diarrhea, constipation Genitourinary: denies: dysuria, hematuria Musculoskeletal: denies: neck pain, back pain, leg pain Skin: denies: rash, lesions Neurological: denies: weakness Hospitalist Exam General Appearance: NAD, awake alert General - other findings: A little sleepy but easily arousable ENT: normocephalic atraumatic, no oropharyngeal lesions, moist mucosa Neck: supple, no JVD, no thyromegaly Heart: RRR, no murmur, no gallops, no rubs Respiratory: CTAB, no wheezes, no rales, no ronchi Gastrointestinal: soft, non-tender, non-distended, normal bowel sounds Extremities: no cyanosis, no clubbing, no edema Neurological: cranial nerve grossly intact, no focal deficits Musculoskeletal: normal tone, normal strength, no muscle wasting Psychiatric: normal affect, normal behavior, oriented to person, oriented to place, oriented to time Hospitalist Results Lab results: Laboratory Last Values POC Glucose 95 mg/dL (70-100) 04/06/20 08:14 Additional comment: Lab reviewed from [facility] emergency room. No leukocytosis or significant electrolyte abnormalities. CT scan - head Status: report reviewed by me Additional Comments: CT Head Without Intravenous Contrast. CLINICAL HISTORY: AMS, LOW BLOOD SUGAR TECHNIQUE: Axial computed tomography images of the head/brain without intravenous contrast. COMPARISON: None provided. FINDINGS: BRAIN: No acute intraparenchymal hemorrhage. No mass lesion. No CT evidence for acute territorial infarct. No midline shift or extra-axial collection. VENTRICLES: No hydrocephalus. ORBITS: The orbits are unremarkable. SINUSES AND MASTOIDS: The paranasal sinuses and mastoid air cells are clear. SOFT TISSUES: No significant facial or scalp soft tissue swelling evident. No radiopaque foreign body is seen. BONES: No acute skull fracture. IMPRESSION: No acute intracranial abnormality. Chest x-ray Status: report reviewed by me Additional Comments: PORTABLE CHEST: Date: 04/06/2020 An AP portable film at 0501 hours is compared with the 03/29/2020 exam. The study is taken in expiration. Allowing for this, there may be a little bit of linear basilar atelectasis, but no major lobar consolidation was seen. There is no increase in heart size and no vascular congestion. IMPRESSION: Expiratory film showing no acute finding. Hospitalist H&P A/P Plan: This is a 44-year-old male with a history of type 1 diabetes mellitus on long- acting insulin, coronary artery disease status post CABG, recent septic right knee with incomplete treatment, and recurrent methamphetamine abuse who presents from the [place] emergency room after found down at home for hypoglycemia after methamphetamine abuse. Severe hypoglycemia Patient will need every 2 hour fingerstick blood sugars Continuous D5W infusion to keep blood sugars up Hold long-acting insulin for now, can restart once he is persistent hypoglycemia stabilizes and he starts to go up Acute metabolic encephalopathy secondary to #1 Improving with blood sugar correction Diabetes mellitus type 1 insulin-dependent We will hold long-acting insulin for now and restart once his blood sugars start coming back up consistently, will need to watch closely to make sure he does not go into DKA History of septic right knee arthritis Patient completed a long course of IM Rocephin, and was supposed to start 2 more weeks of amoxicillin after his last hospitalization. However, patient left A and never got his amoxicillin prescription. That was about a week ago. We will give IV Rocephin in the hospital and make sure to send in amoxicillin prescription before he leaves. No evidence of worsening of knee at this point. No leukocytosis Coronary artery disease We will resume patient's lisinopril. Patient probably should be on aspirin and atorvastatin as well, suspect he is not due to noncompliance and no PCP. We will start those in the hospital currently. Hypertension We will resume patient's lisinopril and monitor closely. DVT prophylaxis SCDs while in bed and subcutaneous Lovenox GI prophylaxis Famotidine Disposition Patient will need to be closely observed in the hospital for at least 24 hours and until his blood sugars are stabilized. After restarting his long-acting insulin and anticipate he will be able to be discharged home on oral amoxicillin for his knee. Patient has been counseled to stop methamphetamines.
[2020-04-06 12:14] LABS: SARS-CoV-2 NAA Rapid Test DETECTED (NotDetected)
[2020-04-06] MEDS ORDERED: Dextrose 10% in Water 1,000 ML IV SCH ×2 (15:58→17:02)
[2020-04-06] MEDS ORDERED: Dextrose 5% in Water 1,000 ML IV PRN (15:58)
[2020-04-06] MEDS ORDERED: Ondansetron PF 4 MG/2 ML Vial IVP PRN (15:58)
[2020-04-06] MEDS ORDERED: Acetaminophen 650 MG Suppository PR PRN (15:58)
[2020-04-06] MEDS ORDERED: Senokot S 8.6-50 MG TAB PO PRN (15:58)
[2020-04-06] MEDS ORDERED: HumaLOG 300 UNITS/3 ML VIAL SC PRN ×2 (15:58)
[2020-04-06] MEDS ORDERED: Dextrose 50% Abboject 50 ML SYRINGE SLOW IVP PRN (15:58)
[2020-04-06] MEDS ORDERED: Guaifenesin DM 100-10/5 ML UDCUP PO PRN (15:58)
[2020-04-06] MEDS ORDERED: Acetaminophen 325 MG TAB PO PRN (15:58)
[2020-04-06] MEDS ORDERED: Ondansetron ODT 4 MG TAB PO PRN (15:58)
[2020-04-06] MEDS ORDERED: Dextrose 50% Abboject 50 ML SYRINGE ONE (16:32)
[2020-04-06] MEDS ORDERED: Lorazepam 2 MG/ML VIAL ONE (16:52)
[2020-04-06] MEDS: cefTRIAXone\\ROCEPHIN 2 GM in Sodium Chloride 0.9% 100 ML IVPB SCH (18:16)
[2020-04-06] MEDS: Gabapentin 300 MG CAP PO SCH (18:16)
[2020-04-06 18:33] VITALS: BMI 18.7
--- NOTE | 2020-04-06 18:42 | ULT ---
ULTRASOUND DOPPLER DUPLEX VENOUS LEFT UPPER EXTREMITY:] 04/06/20 HISTORY: 44-year-old male with sudden pain and swelling in left upper extremity. TECHNIQUE: Chambers scale, color flow, and spectral analysis, of major veins of the left upper extremity. FINDINGS: In the forearm, the cephalic vein has incomplete compressibility, from mid forearm to wrist, with dec reased flow. There is demonstration of blood flow, with no thrombosis, of the left internal jugular, subclavian, a xillary, brachial, basilic, radial and ulnar, veins. IMPRESSION: Thrombosis of the cephalic vein in the forearm. POS: JIN
[2020-04-06] MEDS ORDERED: Sodium Chloride 0.9% 1,000 ML IV SCH (20:15)
[2020-04-06] MEDS: Famotidine 20 MG TAB PO SCH (20:34)
[2020-04-06] MEDS: Atorvastatin Calcium 40 MG TAB PO SCH (20:34)
[2020-04-06] MEDS: Lorazepam 2 MG/ML VIAL SLOW IVP PRN (20:58)
[2020-04-06] MEDS ORDERED: Melatonin 3 MG TAB PO SCH (21:30)
[2020-04-06 22:30] LABS: Anion Gap 17 mmol/L (10-20); BUN (Urea Nitrogen) 14 mg/dL (8.9-20.6); Calc. Creatinine Clearance 51 mL/min (70-130); Calcium 7.9 mg/dL (7.8-10.44); Carbon Dioxide 18 mmol/L (22-29); Chloride 98 mmol/L (98-107); Potassium 4.9 mmol/L (3.5-5.1); Sodium 128 mmol/L (136-145)
[2020-04-06 22:32] LABS: Glucose 799 mg/dL (70-105)
[2020-04-06] MEDS ORDERED: Insulin Regular 300 UNITS/3 ML VIAL IVP SCH ×2 (22:45→23:00)
[2020-04-06] MEDS ORDERED: Insulin Regular 300 UNITS/3 ML VIAL SC PRN (22:49)
[2020-04-06] MEDS ORDERED: Insulin Glargine 15 UNITS in Pre-Filled Syringe 1 EACH SC SCH (23:15)
[2020-04-06] MEDS: Sodium Chloride 0.9% 1,000 ML IV SCH (23:39)
[2020-04-07] MEDS: Gabapentin 300 MG CAP PO SCH ×4 (00:47→17:24)
[2020-04-07] MEDS: Sodium Chloride 0.9% 1,000 ML IV SCH ×2 (04:23→08:00)
[2020-04-07 05:15] LABS: #Basophils 0.1 thou/uL (0.0-0.2); #Eosinphils 0.1 thou/uL (0.0-0.7); #Lymphocytes 1.9 thou/uL (1.20-3.40); #Monocytes 0.5 thou/uL (0.11-0.59); #Neutrophils 2.3 thou/uL (1.40-6.50); %Basophils 1.2 % (0.0-1.0); %Eosinophils 2.8 % (0.0-10.0); %Monocytes 10.9 % (0.0-10.0); %Neutrophils 47.2 % (42.0-75.0); Hemoglobin 10.9 g/dL (14.0-18.0); Mean Corpuscular HGB CONC 32.7 g/dL (32.0-36.0); Mean Corpuscular Hemoglobin 28.8 pg (27.0-31.0); Mean Platelet Volume 7.9 fL (7.4-10.4); Platelet Count 268 thou/uL (130-400); RBC Distribution Width 15.3 % (11.5-14.5); White Blood Cell (WBC) Count 4.9 thou/uL (4.8-10.8)
[2020-04-07 05:29] LABS: Anion Gap 13 mmol/L (10-20); BUN (Urea Nitrogen) 15 mg/dL (8.9-20.6); Calc. Creatinine Clearance 69 mL/min (70-130); Carbon Dioxide 22 mmol/L (22-29); Chloride 106 mmol/L (98-107); Glucose 418 mg/dL (70-105); Potassium 4.8 mmol/L (3.5-5.1); Sodium 136 mmol/L (136-145)
--- NOTE | 2020-04-07 07:05 | PDOC.BPN ---
- Brief Progress Note Encounter Date: 04/07/20 Encounter Time: 00:00 patient w/ high sugar overnight and bmp suggesting acidosis, added insulin q4h and changed to moderate ssi, added lantus back too, as well as changed IVF from D10 to NS, will need close monitoring to ensure sugar does not go too low on this new formula
[2020-04-07] MEDS: Famotidine 20 MG TAB PO SCH ×2 (07:58→20:18)
[2020-04-07] MEDS: Aspirin 81 mg Enteric Coated Tablet PO SCH (07:58)
[2020-04-07] MEDS: Insulin Glargine 15 UNITS in Pre-Filled Syringe 1 EACH SC SCH ×2 (07:59→20:20)
[2020-04-07] MEDS: Lisinopril 20 MG TAB PO SCH (07:59)
[2020-04-07] MEDS: Enoxaparin Sodium 40 MG/0.4 ML SYRINGE SC SCH (07:59)
[2020-04-07] MEDS: Lorazepam 2 MG/ML VIAL SLOW IVP PRN ×2 (10:16→22:30)
[2020-04-07] MEDS: HYDROcodone/Acetaminophen 10/325 mg Tablet PO PRN ×3 (10:16→18:19)
[2020-04-07] MEDS: HumaLOG 300 UNITS/3 ML VIAL SC PRN ×3 (12:18→20:34)
--- NOTE | 2020-04-07 15:01 | PDOC.HOSPP ---
- Subjective Encounter Date: 04/07/20 Encounter Time: 12:30 Subjective: pt up in bed no complains - Objective Vital Signs & Weight: Vital Signs (12 hours) Temp Pulse Pulse Pulse Resp BP BP 04/07/20 14:16 93 18 04/07/20 13:15 98 91 125/89 146/92 H 04/07/20 12:31 102 H 18 04/07/20 10:59 97.9 F 95 20 04/07/20 10:16 04/07/20 09:50 95 18 04/07/20 08:00 97.4 F L 91 16 04/07/20 05:59 89 20 04/07/20 04:10 98.2 F 96 18 BP Pulse Ox Pulse Ox Pulse Ox 04/07/20 14:16 136/99 H 100 04/07/20 13:15 100 100 04/07/20 12:31 125/83 100 04/07/20 10:59 128/87 100 04/07/20 10:16 128/87 04/07/20 09:50 152/81 H 100 04/07/20 08:00 123/60 99 04/07/20 05:59 131/72 99 04/07/20 04:10 113/65 98 Weight Admit Weight 130 lb 8 oz Weight 130 lb 8 oz I&O: 04/06/20 04/07/20 04/08/20 06:59 06:59 06:59 Intake Total 1000 Output Total 1700 Balance -700 Result Diagrams: 04/07/20 05:06 04/07/20 05:06 Additional Labs: Accuchecks 04/07/20 04/07/20 04/07/20 11:00 08:06 04:08 POC Glucose 463 H 370 H 362 H 04/07/20 04/07/20 04/06/20 02:04 00:42 21:37 POC Glucose 373 H 394 H Greater than 530 H* 04/06/20 04/06/20 04/06/20 19:29 18:20 16:31 POC Glucose Greater than 530 H* 436 H 58 L* Hospitalist ROS - Review of Systems Cardiovascular: denies: chest pain, palpitations, orthopnea, paroxysmal noc. dyspnea, edema, light headedness, other Gastrointestinal: denies: nausea, vomiting, abdominal pain, diarrhea, constipation, melena, hematochezia, other Genitourinary: denies: dysuria, frequency, incontinence, hematuria, retention, other - Medication Medications: Active Medications Generic Name Dose Route Start Last Admin Trade Name Rashelq PRN Reason Stop Dose Admin Hydrocodone Bitart/Acetaminophen 1 tab 04/06/20 15:58 04/07/20 14:17 Hydrocodone/Acetaminophen 10/325 Mg Tablet PO 1 tab Q4H PRN Administration Moderate to Severe Pain (6-10) Aspirin 81 mg 04/07/20 09:00 04/07/20 07:58 Aspirin 81 Mg Enteric Coated Tablet PO 81 mg DAILY LILLI Administration Atorvastatin Calcium 40 mg 04/06/20 21:00 04/06/20 20:34 Atorvastatin Calcium 40 Mg Tab PO 40 mg HS LILLI Administration Enoxaparin Sodium 40 mg 04/07/20 09:00 04/07/20 07:59 Enoxaparin Sodium 40 Mg/0.4 Ml Syringe SC 40 mg 0900 LILLI Administration Famotidine 20 mg 04/06/20 21:00 04/07/20 07:58 Famotidine 20 Mg Tab PO 20 mg BID LILLI Administration Gabapentin 300 mg 04/06/20 18:00 04/07/20 12:18 Gabapentin 300 Mg Cap PO 300 mg Q6HR LILLI Administration Ceftriaxone Sodium 2 gm/ 100 mls @ 200 mls/hr 04/06/20 17:00 04/06/20 18:16 Sodium Chloride IVPB 100 mls 1700 LILLI Administration Insulin Glargine 15 units/ 0.15 mls @ 0 mls/hr 04/07/20 09:00 04/07/20 07:59 Miscellaneous Medication SC 0.15 mls BID LILLI Administration Insulin Human Lispro 0 units 04/06/20 23:30 04/07/20 12:18 Humalog 300 Units/3 Ml Vial SC 10 unit .MODERATE SLIDING SC PRN Administration MODERATE SLIDING SCALE Protocol Lisinopril 20 mg 04/07/20 09:00 04/07/20 07:59 Lisinopril 20 Mg Tab PO 20 mg DAILY LILLI Administration Lorazepam 1 mg 04/06/20 19:12 04/07/20 10:16 Lorazepam 2 Mg/Ml Vial SLOW IVP 1 mg Q4H PRN Administration .ANXIETY Hospitalist Exam Vitals: Vital Signs (12 hours) Temp Pulse Pulse Pulse Resp BP BP 04/07/20 14:16 93 18 04/07/20 13:15 98 91 125/89 146/92 H 04/07/20 12:31 102 H 18 04/07/20 10:59 97.9 F 95 20 04/07/20 10:16 04/07/20 09:50 95 18 04/07/20 08:00 97.4 F L 91 16 04/07/20 05:59 89 20 04/07/20 04:10 98.2 F 96 18 BP Pulse Ox Pulse Ox Pulse Ox 04/07/20 14:16 136/99 H 100 04/07/20 13:15 100 100 04/07/20 12:31 125/83 100 04/07/20 10:59 128/87 100 04/07/20 10:16 128/87 04/07/20 09:50 152/81 H 100 04/07/20 08:00 123/60 99 04/07/20 05:59 131/72 99 04/07/20 04:10 113/65 98 Weight Admit Weight 130 lb 8 oz Weight 130 lb 8 oz Heart: RRR Respiratory: no wheezes, no rales, normal chest expansion Gastrointestinal: soft, non-tender Extremities: 1+ LE edema Extremities - other findings: left arm swelling Hosp A/P (1) Diabetes type 1, uncontrolled Code(s): E10.65 - TYPE 1 DIABETES MELLITUS WITH HYPERGLYCEMIA Status: Acute (2) Diabetes Code(s): E11.9 - TYPE 2 DIABETES MELLITUS WITHOUT COMPLICATIONS Status: Acute (3) Septic joint Status: Acute (4) Substance abuse Code(s): F19.10 - OTHER PSYCHOACTIVE SUBSTANCE ABUSE, UNCOMPLICATED Status: Chronic (5) COVID-19 Code(s): U07.1 - COVID-19 Status: Acute - Plan We will restart patient's insulin. Patient now is Covid positive. Currently he is not on oxygen. We will check CRP and ferritin in the morning. Chest x-ray did not show any acute abnormalities. Patient has been very noncompliant with his care. Possible discharge in the next 24 hours
[2020-04-07] MEDS ORDERED: HumaLOG 300 UNITS/3 ML VIAL SC SCH (17:00)
[2020-04-07] MEDS: cefTRIAXone\\ROCEPHIN 2 GM in Sodium Chloride 0.9% 100 ML IVPB SCH (17:24)
[2020-04-07] MEDS: Atorvastatin Calcium 40 MG TAB PO SCH (20:30)
[2020-04-08] MEDS: Gabapentin 300 MG CAP PO SCH ×4 (05:11→17:29)
[2020-04-08 05:50] LABS: INR-International Normal Ratio 0.8; PTT 25.2 sec (22.9-36.1); Prothrombin Time 11.5 sec (12.0-14.7)
[2020-04-08] MEDS: Aspirin 81 mg Enteric Coated Tablet PO SCH (09:37)
[2020-04-08] MEDS: Enoxaparin Sodium 40 MG/0.4 ML SYRINGE SC SCH (09:37)
[2020-04-08] MEDS: Famotidine 20 MG TAB PO SCH (09:37)
[2020-04-08] MEDS: Lisinopril 20 MG TAB PO SCH (09:37)
[2020-04-08] MEDS: HYDROcodone/Acetaminophen 10/325 mg Tablet PO PRN ×2 (09:47→14:24)
[2020-04-08] MEDS: HumaLOG 300 UNITS/3 ML VIAL SC PRN ×2 (12:02→17:30)
--- NOTE | 2020-04-08 13:05 | PDOC.HOSPP ---
- Subjective Encounter Date: 04/08/20 Encounter Time: 10:30 Subjective: pt up in bed wants to go home but does not gonzalez - Objective Vital Signs & Weight: Vital Signs (12 hours) Temp Pulse Resp BP Pulse Ox 04/08/20 11:39 98.4 F 98 18 132/74 96 04/08/20 08:00 102 H 20 132/85 100 04/08/20 06:00 96 14 117/68 100 04/08/20 03:59 97 126/72 04/08/20 01:55 87 12 124/75 99 Weight Admit Weight 130 lb 8 oz Weight 130 lb 8 oz I&O: 04/07/20 04/08/20 04/09/20 06:59 06:59 06:59 Intake Total 1000 2900 200 Output Total 1700 3985 Balance -700 -1085 200 Result Diagrams: 04/07/20 05:06 04/07/20 05:06 Additional Labs: Accuchecks 04/08/20 04/08/20 04/08/20 11:07 05:54 05:15 POC Glucose 384 H 85 36 L* 04/07/20 04/07/20 04/06/20 20:24 16:08 21:37 POC Glucose 268 H 330 H Greater than 530 H* 04/06/20 04/06/20 19:29 16:31 POC Glucose Greater than 530 H* 58 L* Hospitalist ROS - Medication Medications: Active Medications Generic Name Dose Route Start Last Admin Trade Name Freq PRN Reason Stop Dose Admin Hydrocodone Bitart/Acetaminophen 1 tab 04/06/20 15:58 04/08/20 09:47 Hydrocodone/Acetaminophen 10/325 Mg Tablet PO 1 tab Q4H PRN Administration Moderate to Severe Pain (6-10) Aspirin 81 mg 04/07/20 09:00 04/08/20 09:37 Aspirin 81 Mg Enteric Coated Tablet PO 81 mg DAILY LILLI Administration Atorvastatin Calcium 40 mg 04/06/20 21:00 04/07/20 20:30 Atorvastatin Calcium 40 Mg Tab PO 40 mg HS LILLI Administration Dextrose/Water 25 gm 04/06/20 15:58 04/08/20 05:17 Dextrose 50% Abboject 50 Ml Syringe SLOW IVP 25 gm PRN PRN Administration Hypoglycemia Enoxaparin Sodium 40 mg 04/07/20 09:00 04/08/20 09:37 Enoxaparin Sodium 40 Mg/0.4 Ml Syringe SC 40 mg 0900 LILLI Administration Famotidine 20 mg 04/06/20 21:00 04/08/20 09:37 Famotidine 20 Mg Tab PO 20 mg BID LILLI Administration Gabapentin 300 mg 04/06/20 18:00 04/08/20 12:23 Gabapentin 300 Mg Cap PO 300 mg Q6HR LILLI Administration Ceftriaxone Sodium 2 gm/ 100 mls @ 200 mls/hr 04/06/20 17:00 04/07/20 17:24 Sodium Chloride IVPB 100 mls 1700 LILLI Administration Insulin Human Lispro 0 units 04/06/20 23:30 04/08/20 12:02 Humalog 300 Units/3 Ml Vial SC 10 unit .MODERATE SLIDING SC PRN Administration MODERATE SLIDING SCALE Protocol Lisinopril 20 mg 04/07/20 09:00 04/08/20 09:37 Lisinopril 20 Mg Tab PO 20 mg DAILY LILLI Administration Lorazepam 1 mg 04/06/20 19:12 04/07/20 22:30 Lorazepam 2 Mg/Ml Vial SLOW IVP 1 mg Q4H PRN Administration .ANXIETY Hospitalist Exam Vitals: Vital Signs (12 hours) Temp Pulse Resp BP Pulse Ox 04/08/20 11:39 98.4 F 98 18 132/74 96 04/08/20 08:00 102 H 20 132/85 100 04/08/20 06:00 96 14 117/68 100 04/08/20 03:59 97 126/72 04/08/20 01:55 87 12 124/75 99 Weight Admit Weight 130 lb 8 oz Weight 130 lb 8 oz Hosp A/P (1) Diabetes type 1, uncontrolled Code(s): E10.65 - TYPE 1 DIABETES MELLITUS WITH HYPERGLYCEMIA Status: Acute (2) Diabetes Code(s): E11.9 - TYPE 2 DIABETES MELLITUS WITHOUT COMPLICATIONS Status: Acute (3) Septic joint Status: Acute (4) Substance abuse Code(s): F19.10 - OTHER PSYCHOACTIVE SUBSTANCE ABUSE, UNCOMPLICATED Status: Chronic (5) COVID-19 Code(s): U07.1 - COVID-19 Status: Acute - Plan We will restart patient's insulin. Patient now is Covid positive. Currently he is not on oxygen. We will check CRP and ferritin in the morning. Chest x-ray did not show any acute abnormalities. Patient has been very noncompliant with his care. Possible discharge in the next 24 hours
--- NOTE | 2020-04-08 14:44 | PDOC.DS.DS ---
Provider Date of Admission: 04/06/20 10:01 Date of Discharge: 04/08/20 Admitting Provider: George El Primary Care Physician: NO PCP PROVIDER Course Hospital Course: Patient is a 44-year-old male who initially presented to the hospital for change in mental status and was found to be hypoglycemic. Patient is a type I diabetic. He is also a substance use abuser. Patient also was noted to be Covid positive however he was asymptomatic. He was 100% on room air. Inflammatory markers were normal. Patient at this time was discharged home his insulin medication was adjusted accordingly. Patient has been asked to refrain from substance abuse. He was also started back on oral antibiotics due to his noncompliance following up for an outpatient IV antibiotics. Resuscitation Status: 04/06/20 10:56 Resuscitation Status Routine Resuscitation Status: FULL: Full Resuscitation Lab Results: 04/07/20 05:06 04/07/20 05:06 Abnormal Lab Results - Last 48 hrs 04/06/20 21:56: Sodium 128 L, Carbon Dioxide 18 L, Creatinine 1.54 H 04/07/20 05:06: RBC 3.80 L, Hgb 10.9 L, Hct 33.4 L, RDW 15.3 H, Monocytes % 10.9 H, Basophils % 1.2 H 04/08/20 05:16: PT 11.5 L Vitals: Vital Signs (12 hours) Temp Pulse Resp BP Pulse Ox 04/08/20 14:00 99 20 133/77 100 04/08/20 11:39 98.4 F 98 18 132/74 96 04/08/20 08:00 102 H 20 132/85 100 04/08/20 06:00 96 14 117/68 100 04/08/20 03:59 97 126/72 Weight Admit Weight 130 lb 8 oz Weight 130 lb 8 oz Physical Exam: The patient was seen and examined on the day of discharge. Problem Assessment: See patient discharge instruction sheet for detailed teaching. Patient verbalizes understanding of medications and is able to verbalize follow-up care. See Discharge Plan for additional discharge information. Patient secured in private vehicle prior to departure. FOCUS: Transition from Acute Care after Discharge GOAL: Successful transition to care in the community YOUR TASKS: (1) review all information outlined in your discharge packet (2) follow any instructions outlined in your discharge packet (3) contact your primary care provider if you have questions or need additional assistance (1) Diabetes type 1, uncontrolled Code(s): E10.65 - TYPE 1 DIABETES MELLITUS WITH HYPERGLYCEMIA Status: Acute (2) Diabetes Code(s): E11.9 - TYPE 2 DIABETES MELLITUS WITHOUT COMPLICATIONS Status: Acute (3) Septic joint Status: Acute (4) Substance abuse Code(s): F19.10 - OTHER PSYCHOACTIVE SUBSTANCE ABUSE, UNCOMPLICATED Status: Chronic (5) COVID-19 Code(s): U07.1 - COVID-19 Status: Acute Plan Prescriptions: Amoxicillin [Amoxil] 1 gm PO Q8HR #42 cap Saccharomyces boulardii [Florastor] 250 mg PO DAILY #20 cap HumuLIN 70/30 [HumuLIN 70/30 Vial] 15 unit SC BID #1 vial Atorvastatin Calcium [Lipitor] 40 mg PO HS #30 tab Home Medications: Medication Instructions Recorded Confirmed Type Gabapentin 300 mg PO Q6H #120 capsule 03/01/20 04/06/20 Rx HYDROcodone Bit/APAP 10/325 [[place]] 1 tab PO Q4H PRN #20 tab 03/01/20 04/06/20 Rx Lisinopril 20 mg PO DAILY #30 tablet 03/01/20 04/06/20 Rx Amoxicillin [Amoxil] 1 gm PO Q8HR #42 cap 04/08/20 Rx Atorvastatin Calcium [Lipitor] 40 mg PO HS #30 tab 04/08/20 Rx HumuLIN 70/30 [HumuLIN 70/30 Vial] 15 unit SC BID #1 vial 04/08/20 Rx Saccharomyces boulardii [Florastor] 250 mg PO DAILY #20 cap 04/08/20 Rx Allergies: Sulfa (Sulfonamide Antibiotics) Allergy (Verified 03/30/20 16:17) sulfamethoxazole [From Bactrim] Allergy (Verified 04/06/20 15:59) trimethoprim [From Bactrim] Allergy (Verified 04/06/20 15:59) Activity:: Activity as Tolerated Nourishment:: Diabetic Diet, Heart Healthy Diet Referrals: PROVIDER,NO PCP [Primary Care Provider] - Disposition: HOME Quality CORE MEASURES:: N/A
[2020-04-08] MEDS: Insulin Glargine 15 UNITS in Pre-Filled Syringe 1 EACH SC SCH (15:59)
[2020-04-08] MEDS: cefTRIAXone\\ROCEPHIN 2 GM in Sodium Chloride 0.9% 100 ML IVPB SCH (17:28)
[2020-04-08 18:00] VITALS: BP 146/86; TEMP 98.1
[2020-04-08] MEDS ORDERED: Insulin Glargine 8 UNITS in Pre-Filled Syringe 1 EACH SC SCH (21:00)
[2020-04-09] MEDS ORDERED: Insulin Glargine 15 UNITS in Pre-Filled Syringe 1 EACH SC SCH (09:00)
--- NOTE | 2020-04-11 04:24 | PQF ---
CLINICAL DOCUMENTATION CLARIFICATION FORM: Dear : Princess Yi Date / Time: 04/11/2020422 Please exercise your independent, professional judgment in responding to the clarification form. Clinical indicators are provided on the bottom of this form for your review In your clinical opinion based on clinical findings below, can you please identify the etiology of hypoglycemia if due to: Please check appropriate box(es): [ ] Methamphetamine use [x ] Uncontrolled DM type 1 [ ] Other diagnosis [ ] Unable to determine Physician Signature Date/Time: For continuity of documentation, please document condition throughout progress notes and discharge summary. Thank You. To be completed by CDI/Coding staff for physician review: Present Clinical Indicators - Signs / Symptoms / Labs Results and Location in Medical Record [x] POC Glucose 85; 436; >530, Glucose 799; 418 Laboratory 04/06-04/07 [x] BP 152/90, Pulse 81, resp 18, Temp 97.5 Vital signs 04/06 [x] Pt found down after he had did methamphetamine with some friends H&P p1 04/06 Dr Major [x] Hypoglycemia after methamphetamine abuse H&P p5 04/06 Dr Major Present Risk Factors Results and Location in Medical Record [x] DM type 1 H&P p1 04/06 Dr Major [x] Methamphetamine abuse H&P p1 04/06 Dr Major [x] HTN H&P p2 04/06 Dr Major [x] Smoker H&P p2 04/06 Dr Major [x] Very noncompliant with his care PN p5 04/07 Dr Yi Present Treatments Results and Location in Medical Record [x] IVF NS 1L MAY 09 [x] IV Ativan 1 gm MAY 09 [x] IV Dextrose 50 % MAY 09 [x] Monitor Glucose H&P p5 04/06 Dr Major CDS/Transfer Station Attendant Signature: Esperanza Winter Phone #: [phone] Date/Time: 04/11/20422 This is a permanent part of the Medical Record [facility]
== END 2020-04-08 19:28 | disposition home or self-care (01) | DRG 637 ==
LOC: ERS 07:40 → 2SE 10:01
PROVIDERS: ADMIT Internal Medicine; ATTEND Internal Medicine
DX: E10.649 Type 1 diabetes mellitus with hypoglycemia without coma (principal); U07.1 COVID-19; G93.41 Metabolic encephalopathy; M00.861 Arthritis due to other bacteria, right knee; F15.10 Other stimulant abuse, uncomplicated; I10 Essential (primary) hypertension; I25.10 Atherosclerotic heart disease of native coronary artery without angina pectoris; F17.210 Nicotine dependence, cigarettes, uncomplicated; E10.65 Type 1 diabetes mellitus with hyperglycemia; Z88.2 Allergy status to sulfonamides; Z88.8 Allergy status to other drugs, medicaments and biological substances; Z95.1 Presence of aortocoronary bypass graft; Z95.5 Presence of coronary angioplasty implant and graft; Z79.899 Other long term (current) drug therapy; Z79.4 Long term (current) use of insulin
CPT/HCPCS: 0240U; 36415; 36416; 80048; 82728; 85025; 85610; 85730; 86140; 96365; 96366; J0696; J1650; J1815; J2060; J3490

== ENCOUNTER 2020-04-09 08:38 | Emergency (ER) | payer SELFPAY ==
[2020-04-09 09:43] LABS: #Basophils 0.1 thou/uL (0.0-0.2); #Eosinphils 0.2 thou/uL (0.0-0.7); #Lymphocytes 2.6 thou/uL (1.20-3.40); #Monocytes 0.5 thou/uL (0.11-0.59); %Eosinophils 1.9 % (0.0-10.0); %Lymphocytes 27.7 % (21.0-51.0); %Monocytes 5.5 % (0.0-10.0); %Neutrophils 63.9 % (42.0-75.0); Hemoglobin 13.4 g/dL (14.0-18.0); Mean Corpuscular HGB CONC 30.8 g/dL (32.0-36.0); Mean Corpuscular Hemoglobin 26.9 pg (27.0-31.0); Mean Corpuscular Volume 87.4 fL (78.0-98.0); Mean Platelet Volume 7.8 fL (7.4-10.4); Platelet Count 330 thou/uL (130-400); RBC Distribution Width 15.6 % (11.5-14.5); Red Blood Cell (RBC) Count 4.97 mill/uL (4.70-6.10); White Blood Cell (WBC) Count 9.4 thou/uL (4.8-10.8)
[2020-04-09 09:50] LABS: INR-International Normal Ratio 0.8
[2020-04-09 09:51] LABS: PTT 23.5 sec (22.9-36.1)
[2020-04-09 10:04] LABS: ALT (SGPT) 106 U/L (8-55); AST (SGOT) 52 U/L (5-34); Albumin 4.3 g/dL (3.5-5.0); Alkaline Phosphatase 119 U/L (40-110); Anion Gap 15 mmol/L (10-20); BUN (Urea Nitrogen) 19 mg/dL (8.9-20.6); Bilirubin, Total 0.6 mg/dL (0.2-1.2); Calc. Creatinine Clearance 0 mL/min (70-130); Calcium 9.5 mg/dL (7.8-10.44); Carbon Dioxide 28 mmol/L (22-29); Chloride 94 mmol/L (98-107); Globulin 3.8 g/dL (2.4-3.5); Glucose 549 mg/dL (70-105); Lipase 36 U/L (8-78); Potassium 4.9 mmol/L (3.5-5.1); Protein, Total 8.1 g/dL (6.0-8.3); Sodium 132 mmol/L (136-145)
[2020-04-09 11:31] LABS: Bilirubin Negative (Negative); Blood, Urine Negative (Negative); Clarity Clear (Clear); Glucose, Urine (Dipstick) Greater than 1000 mg/dL (Negative); Ketone, Urine Negative (Negative); Leukocyte Negative Leu/uL (Negative); Nitrite Negative (Negative); Protein, Urine (Dipstick) Negative (Neg-Trace); Specific Gravity, Urine 1.021 (1.002-1.036); Urobilinogen Normal mg/dL (Less than 2)
[2020-04-09] MEDS ORDERED: Insulin Regular 300 UNITS/3 ML VIAL ONE (13:01)
== END 2020-04-09 15:03 | disposition home or self-care (01) ==
LOC: ERS 08:38
DX: U07.1 COVID-19 (principal); E10.9 Type 1 diabetes mellitus without complications; I10 Essential (primary) hypertension; F17.210 Nicotine dependence, cigarettes, uncomplicated
CPT/HCPCS: 36415; 36416; 71045; 80053; 81003; 82010; 83605; 83690; 85025; 85610; 85730; 87040; 93005; 94760; 96374; J1815

== ENCOUNTER 2020-05-09 11:09 | Emergency (ER) | payer SELFPAY ==
[2020-05-09] MEDS ORDERED: Lorazepam 2 MG/ML VIAL ONE (11:49)
[2020-05-09 11:55] LABS: Actual Bicarbonate (HCO3v) 22 mEq/L (22-28); Analyzer IN Cardio ER; Base Excess 0.6 mEq/L (-2.0 to +3.0); Calcium, Ionized (venous) 1.04 mmol/L (1.16-1.32); Chloride (VBG) 103 mmol/L (98-106); Hemoglobin (Hb) 12.7 g/dL (13.1-17.2); Sodium 134.8 mmol/L (133-146); pH (venous) 7.55 (7.32-7.43)
[2020-05-09 11:57] LABS: #Lymphocytes 1.8 thou/uL (1.20-3.40); #Monocytes 0.4 thou/uL (0.11-0.59); #Neutrophils 4.8 thou/uL (1.40-6.50); %Basophils 0.4 % (0.0-1.0); %Eosinophils 0.6 % (0.0-10.0); %Lymphocytes 25.5 % (21.0-51.0); %Neutrophils 67.5 % (42.0-75.0); Hemoglobin 11.7 g/dL (14.0-18.0); Mean Corpuscular HGB CONC 32.6 g/dL (32.0-36.0); Mean Corpuscular Hemoglobin 28.7 pg (27.0-31.0); Mean Corpuscular Volume 88.1 fL (78.0-98.0); Mean Platelet Volume 9.2 fL (7.4-10.4); Platelet Count 218 thou/uL (130-400); RBC Distribution Width 16.5 % (11.5-14.5); Red Blood Cell (RBC) Count 4.08 mill/uL (4.70-6.10); White Blood Cell (WBC) Count 7.1 thou/uL (4.8-10.8)
--- NOTE | 2020-05-09 12:08 | RAD ---
Exam:4 views right knee HISTORY: Surgery 2 months ago. Twisting injury. COMPARISON: 03/06/2020 FINDINGS: Joint spaces are preserved. No fracture or malalignment. Trace suprapatellar effusion. IMPRESSION: No posttraumatic change. If there is concern for internal derangement, consider MRI
[2020-05-09 12:20] LABS: Acetaminophen Less than 6.0 mcg/mL (10.0-30.0); Alcohol Less than 10 mg/dL (Less than 10); Salicylate Less than 8.0 mg/dL (15.0-30.0)
[2020-05-09 12:45] LABS: Magnesium 1.9 mg/dL (1.6-2.6); Phosphorus 3.5 mg/dL (2.3-4.7)
[2020-05-09 13:00] LABS: ALT (SGPT) 74 U/L (8-55); AST (SGOT) 58 U/L (5-34); Alkaline Phosphatase 58 U/L (40-110); Anion Gap 18 mmol/L (10-20); BUN (Urea Nitrogen) 19 mg/dL (8.9-20.6); Bilirubin, Total 0.4 mg/dL (0.2-1.2); CK (CPK) 134 U/L (30-200); Calc. Creatinine Clearance 0 mL/min (70-130); Calcium 8.6 mg/dL (7.8-10.44); Carbon Dioxide 21 mmol/L (22-29); Chloride 103 mmol/L (98-107); Globulin 3.3 g/dL (2.4-3.5); Glucose 319 mg/dL (70-105); Protein, Total 7.3 g/dL (6.0-8.3); Sodium 137 mmol/L (136-145)
[2020-05-09 13:33] LABS: Bacteria/HPF None Seen HPF (None Seen); Bilirubin Negative (Negative); Blood, Urine Trace (Negative); Clarity Clear (Clear); Glucose, Urine (Dipstick) Greater than 1000 mg/dL (Negative); Ketone, Urine Negative (Negative); Leukocyte Negative Leu/uL (Negative); Nitrite Negative (Negative); Protein, Urine (Dipstick) 20 mg/dL (Neg-Trace); Specific Gravity, Urine 1.026 (1.002-1.036); Squamous Epithelial 0-3 HPF (0-3); Urobilinogen Normal mg/dL (Less than 2); WBC/HPF 0-3 HPF (0-3); pH, Urine 6.5 (5.0-9.0)
[2020-05-09 13:41] LABS: Amphetamine Not Detected (NotDetected); Barbiturates Screen Not Detected (NotDetected); Benzodiazepine Screen Not Detected (NotDetected); Cocaine Metabolite Screen Not Detected (NotDetected); Medtox Control Line Valid? VALID (VALID); Medtox Reader # READER 1; Methadone Not Detected (NotDetected); Methamphetamine Not Detected (NotDetected); Opiate Screen Not Detected (NotDetected); Oxycodone Screen Not Detected (NotDetected); Phencyclidine (PCP) Not Detected (NotDetected); THC/Cannabinoid Screen Not Detected (NotDetected); Tricyclic Screen Not Detected (NotDetected)
== END 2020-05-09 20:10 ==
LOC: ERS 11:09
DX: R45.851 Suicidal ideations (principal); M25.561 Pain in right knee; E10.9 Type 1 diabetes mellitus without complications; I10 Essential (primary) hypertension; J44.9 Chronic obstructive pulmonary disease, unspecified; F17.210 Nicotine dependence, cigarettes, uncomplicated
CPT/HCPCS: 36415; 36416; 80053; 80306; 80307; 81003; 81015; 82010; 82550; 82805; 83735; 84100; 84443; 85025; 93005; 94760; 96374; J2060